=== PATIENT | female | born 1960 | race Caucasian/White ===

== ENCOUNTER 2016-04-14 16:21 | Inpatient (IN) | payer MEDICARE, MEDICAID ==
[2016-04-14 17:44] LABS: ABSOLUTE BASOPHILS # (AUTO) 0.1 10^3/uL (0.0-0.2); ABSOLUTE EOSINOPHILS # (AUTO) 0.2 10^3/uL (0.0-0.6); ABSOLUTE LYMPHOCYTES (AUTO) 2.6 10^3/uL (0.5-4.7); ABSOLUTE MONOCYTES (AUTO) 0.6 10^3/uL (0.1-1.4); ABSOLUTE NEUT (AUTO) 7.1 10^3/uL (1.7-8.2); BASOPHILS % (AUTO) 0.9 % (0-2); EOSINOPHILS % (AUTO) 1.8 % (0-6); HEMOGLOBIN 11.8 g/dL (12.0-15.5); HGB HCT DIFFERENCE -1.6; LYMPHOCYTES % (AUTO) 24.7 % (13-45); MEAN CORPUSCULAR HEMOGLOBIN 23.4 pg (27.0-33.4); MEAN CORPUSCULAR HGB CONC 31.9 g/dL (32.0-36.0); MEAN CORPUSCULAR VOLUME 73 fl (80-97); MONOCYTES % (AUTO) 5.2 % (3-13); RED BLOOD COUNT 5.04 10^6/uL (3.72-5.28); RED CELL DISTRIBUTION WIDTH 19.1 % (11.5-14.0); SEGMENTED NEUTROPHILS % (AUTO) 67.4 % (42-78); WHITE BLOOD COUNT 10.6 10^3/uL (4.0-10.5)
[2016-04-14 17:49] LABS: ALANINE AMINOTRANSFERASE 55 U/L (9-52); ALBUMIN 3.7 g/dL (3.5-5.0); ALKALINE PHOSPHATASE 111 U/L (38-126); ANION GAP 10 (5-19); ASPARTATE AMINO TRANSFERASE 19 U/L (14-36); BILIRUBIN,TOTAL 0.4 mg/dL (0.2-1.3); BLOOD UREA NITROGEN 10 mg/dL (7-20); CALCIUM 9.3 mg/dL (8.4-10.2); CARBON DIOXIDE 28 mmol/L (22-30); CHLORIDE 104 mmol/L (98-107); CREATINE KINASE 24 U/L (30-135); CREATININE RESULT 0.58 mg/dL (0.52-1.25); GLUCOSE 100 mg/dL (75-110); POTASSIUM 3.7 mmol/L (3.6-5.0); SODIUM 142.3 mmol/L (137-145); TOTAL PROTEIN 7.1 g/dL (6.3-8.2)
[2016-04-14 18:02] LABS: CREATINE KINASE MB < 0.22 ng/mL (<4.55); TROPONIN I < 0.012 ng/mL
[2016-04-14] MEDS ORDERED: METOCLOPRAMIDE HCL INJ/PF 10 MG/2 ML SDV IV ONE (18:20)
[2016-04-14] MEDS ORDERED: DIPHENHYDRAMINE HCL 50 MG/ML VIAL IV ONE (18:20)
--- NOTE | 2016-04-14 18:24 | ER Document Report ---
ED General - General Chief Complaint: Altered Mental Status Stated Complaint: DIZZY,LEFT SIDE WEAKNESS,HEADACHE Time seen by provider: 18:23 Mode of Arrival: Wheelchair Information source: Patient Notes: This is a 55-year-old female with a history of hypertension, rheumatoid arthritis, GERD who presents to the emergency room with left sided weakness for the past 2 days. Patient states she was visiting [place] and she started feeling bad about 3-4 days ago and had an episode of chest pain at that time and felt weak. She states that she started getting left sided weakness 2-3 days ago. She states that the symptoms of been constant since then. She did not want to go to a hospital in [place] and returned to [place] last night. TRAVEL OUTSIDE OF THE U.S. IN LAST 30 DAYS: No - HPI Onset: Other Onset/Duration: Gradual Quality of pain: No pain - 2-3 days ago Severity: None Pain Level: Denies Associated symptoms: Chest pain, Shortness of breath Exacerbated by: Denies Relieved by: Denies Similar symptoms previously: No Recently seen / treated by doctor: No - Related Data Allergies/Adverse Reactions: cortisone [Cortisone] Allergy (Verified 04/14/16 16:35) hydrocodone bitartrate [From Vicodin] Allergy (Verified 04/14/16 16:35) Past Medical History - General Information source: Patient - Social History Smoking Status: Former Smoker Cigarette use (# per day): No Chew tobacco use (# tins/day): No Frequency of alcohol use: None Drug Abuse: None Lives with: Family Family History: Reviewed & Not Pertinent Patient has suicidal ideation: No Patient has homicidal ideation: No - Past Medical History Cardiac Medical History: Reports: Hx Hypertension, Hx Pulmonary Embolism Denies: Hx Atrial Fibrillation, Hx Congestive Heart Failure, Hx Coronary Artery Disease, Hx Heart Attack, Hx Hypercholesterolemia, Hx Peripheral Vascular Disease, Hx Heart Murmur Pulmonary Medical History: Reports: Hx Asthma, Hx COPD Denies: Hx Tuberculosis Neurological Medical History: Denies: Hx Seizures Endocrine Medical History: Reports: Hx Diabetes Mellitus Type 2 GI Medical History: Reports: Hx Ulcer Musculoskeltal Medical History: Reports Hx Arthritis - RA, Reports Hx Fibromyalgia Psychiatric Medical History: Reports: Hx Anxiety, Hx Depression Past Surgical History: Reports: Hx Section - X4, Hx Cholecystectomy - 2011, Hx Orthopedic Surgery - bilat knee meniscus repair, neck surgery ACF, Hx Tonsillectomy - 1968. Denies: Hx Appendectomy, Hx Bowel Surgery, Hx Coronary Artery Bypass Graft, Hx Gastric Bypass Surgery, Hx Herniorrhaphy, Hx Hysterectomy, Hx Mastectomy, Hx Pacemaker, Hx Tubal Ligation - Immunizations Hx Diphtheria, Pertussis, Tetanus Vaccination: Yes Review of Systems - Review of Systems Constitutional: See HPI EENT: No symptoms reported Cardiovascular: See HPI Respiratory: See HPI Gastrointestinal: No symptoms reported Genitourinary: No symptoms reported Female Genitourinary: No symptoms reported Musculoskeletal: No symptoms reported Skin: No symptoms reported Hematologic/Lymphatic: No symptoms reported Neurological/Psychological: See HPI Physical Exam - Vital signs Vitals: Temp Pulse Resp BP Pulse Ox 98 F 105 H 22 H 152/101 H 97 04/14/16 16:35 04/14/16 16:35 04/14/16 16:35 04/14/16 16:35 04/14/16 16:35 Notes: Physical exam: GENERAL: 55-year-old female, alert and oriented 3, no acute distress HEAD: Atraumatic, normocephalic. EYES: Pupils equal round and reactive to light, extraocular movements intact, sclera anicteric, conjunctiva are normal. ENT: TMs normal, nares patent, oropharynx clear without exudates. Moist mucous membranes. NECK: Normal range of motion, supple without lymphadenopathy or JVD. LUNGS: Breath sounds clear to auscultation bilaterally and equal. No wheezes rales or rhonchi. HEART: Regular rate and rhythm without murmurs, rubs or gallops. ABDOMEN: Soft, nontender, normoactive bowel sounds. No guarding, no rebound. No masses appreciated. EXTREMITIES: Normal range of motion, no pitting or edema. No clubbing or cyanosis. NEUROLOGICAL: Patient is alert and oriented 3, she answers a month and age correctly, she is able to close her eyes and open and close her fist on verbal command, she has a normal gaze, visual dowd are intact, there is no facial palsy, motor arm exam shows drift on the left side that does not touch the bed, motor leg exam shows tripped that does not touch the bed on the left side, patient is ataxic with the left side, she does have subjective mild sensory loss to the left side, patient is noted to have mild loss of fluid and see and best languages tested: Patient description, object naming and sentence reading, her speech is clear NIH score is 5 PSYCH: Normal mood, normal affect. SKIN: Warm, Dry, normal turgor, no rashes or lesions noted. Course - Re-evaluation Re-evalutation: 04/14/16 22:25 Patient's NIH score is 5 Patient does not meet criteria for thrombolytics based upon an onset which is approximately 2-3 days ago. - Vital Signs Vital signs: Temp Pulse Resp BP Pulse Ox 98 F 87 13 144/84 H 100 04/14/16 16:35 04/14/16 21:34 04/14/16 22:01 04/14/16 22:01 04/14/16 22:01 - Laboratory Result Diagrams: 04/14/16 17:12 04/14/16 17:12 Laboratory results interpreted by me: 04/14/16 04/14/16 17:12 17:12 WBC 10.6 H Hgb 11.8 L MCV 73 L MCH 23.4 L MCHC 31.9 L RDW 19.1 H ALT 55 H Creatine Kinase 24 L - Diagnostic Test Radiology reviewed: Image reviewed, Reports reviewed - CT of the head shows no acute stroke - EKG Interpretation by Me Rate: Normal Rhythm: NSR - EKG shows a normal sinus rhythm with a ventricular rate of 84, no acute ST-T wave changes Critical Care Note - Critical Care Note Total time excluding time spent on procedures (mins): 60 Discharge - Discharge Clinical Impression: acute stroke Condition: Stable Disposition: ADMITTED INPATIENT Admitting Provider: Hospitalist - Dr Aguirre Unit Admitted: [facility]
[2016-04-14] MEDS ORDERED: DEXTROSE 5%-1/2 NORMAL SALINE 1,000 ML IV PRN (19:34)
[2016-04-14] MEDS ORDERED: LABETALOL HCL INJ 20 MG/4 ML DISP.SYRIN IV PRN (19:34)
[2016-04-14] MEDS ORDERED: ACETAMINOPHEN 650 MG SUPP.RECT PR PRN (19:39)
[2016-04-14] MEDS ORDERED: ONDANSETRON HCL INJ/PF 4 MG/2 ML SDV IV PRN (19:39)
[2016-04-14] MEDS ORDERED: LORAZEPAM INJ 2 MG/1 ML VIAL IV ONE (19:47)
--- NOTE | 2016-04-14 20:03 | PDOC H&P ---
History of Present Illness Admission Date/PCP: NICOLE GASTON-C History of Present Illness: BECKA GOMES is a 55 year old female with a history of hypertension, and oxygen dependent COPD, fibromyalgia on chronic opiates and benzodiazepines who presents to the emergency department stating that 4 days ago she woke up with chest pain and then began having dizziness and was barely able to walk. She reports that her dizziness became worse. Patient was in [place] at this time she did not seek medical attention. Patient reported that about 4 days ago she began having some left-sided weakness. Patient reports she had 3 days of slurred speech and some difficulty swallowing beginning today. Patient is referred to hospital service for possible CVA. Please note the patient's medications are currently undergoing reconciliation are not available at this time. Current medications are automatically generated by [employer]. Patient does not have her medication with her normal able to reconcile them at this time. Past Medical History Cardiac Medical History: Reports: Hypertension, Pulmonary Embolism Denies: Atrial Fibrillation, Congestive Heart Failure, Coronary Artery Disease, Myocardial Infarction, Hyperlipidema, Peripheral Vascular Disease, Heart Murmur Pulmonary Medical History: Reports: Chronic Obstructive Pulmonary Disease (COPD) Denies: Tuberculosis Pulmonary History Note: Oxygen dependent 3 L Neurological Medical History: Denies: Seizures Endocrine Medical History: Reports: Diabetes Mellitus Type 2 Musculoskeltal Medical History: Reports: Arthritis - RA, Fibromyalgia Psychiatric Medical History: Reports: Depression Past Surgical History Past Surgical History: Reports: Section - X4, Cholecystectomy - 2011, Orthopedic Surgery - bilat knee meniscus repair, neck surgery ACF, Tonsillectomy - 1968 Denies: Appendectomy, Coronary Artery Bypass Graft, Gastric Bypass Surgery, Herniorrhaphy, Hysterectomy, Mastectomy, Pacemaker, Tubal Ligation Social History Smoking Status: Former Smoker Frequency of Alcohol Use: None Hx Recreational Drug Use: No Drugs: None Hx Prescription Drug Abuse: No - Advance Directive Resuscitation Status: Full Code Surrogate healthcare decision maker:: , Chaitanya Boswell Family History Family History: CAD, CVA, Hypertension, Malignancy Parental Family History Reviewed: Yes Children Family History Reviewed: Yes Sibling(s) Family History Reviewed.: Yes Medication/Allergy Home Medications: Alprazolam [Xanax Xr 0.5 mg Tablet Extended Release] 1 mg PO BID PRN 05/05/15 Escitalopram Oxalate [Lexapro] 20 mg PO DAILY 05/05/15 Montelukast Sodium [Singulair 10 mg Tablet] 10 mg PO QHS 05/05/15 Oxycodone HCl 15 mg PO QID 05/05/15 Aspirin [Ecotrin 81 mg EC Tablet] 81 mg PO DAILY tabec 05/06/15 Albuterol Sulfate [Proair HFA] 2 puff IH QID 09/30/15 Amlodipine Besylate 5 mg PO Q12H 09/30/15 Budesonide/Formoterol Fumarate [Symbicort HFA 160-4.5 mcg Inhaler 6 gm] 2 puff IH DAILY 09/30/15 Hydrochlorothiazide 12.5 mg PO DAILY 09/30/15 Lansoprazole 1 cap PO DAILY 09/30/15 Lisinopril [Prinivil 10 mg Tablet] 20 mg PO BID 09/30/15 Trazodone HCl 100 mg PO QHS PRN 09/30/15 Levalbuterol HCl [Xopenex Neb 1.25 mg/3 ml Ampul] 1.25 mg NEB RTQ4 PRN #60 vial.neb 11/07/15 Levofloxacin [Levaquin 750 mg Tablet] 750 mg PO DAILY #6 tab 11/07/15 Allergies/Adverse Reactions: cortisone [Cortisone] Allergy (Verified 04/14/16 16:35) hydrocodone bitartrate [From Vicodin] Allergy (Verified 04/14/16 16:35) Review of Systems Constitutional: PRESENT: fatigue, weakness, other - Subjective fever or chills. ABSENT: chills, fever(s), headache(s), weight gain, weight loss Eyes: PRESENT: visual disturbances - Chronic left eye blurriness Ears: ABSENT: hearing changes Cardiovascular: PRESENT: chest pain. ABSENT: dyspnea on exertion, edema, orthropnea, palpitations Respiratory: ABSENT: cough, dyspnea, hemoptysis Gastrointestinal: ABSENT: abdominal pain, constipation, diarrhea, hematemesis, hematochezia, melena, nausea, vomiting Genitourinary: ABSENT: dysuria, hematuria Musculoskeletal: ABSENT: joint swelling Integumentary: ABSENT: rash, wounds Neurological: PRESENT: as per HPI, abnormal speech, numbness, weakness. ABSENT : abnormal gait, confusion, dizziness, focal weakness, syncope Psychiatric: ABSENT: anxiety, depression, homidical ideation, suicidal ideation Endocrine: ABSENT: cold intolerance, heat intolerance, polydipsia, polyuria Hematologic/Lymphatic: ABSENT: easy bleeding, easy bruising Physical Exam Vital Signs: Temp Pulse Resp BP Pulse Ox 98 F 91 18 145/85 H 98 04/14/16 16:35 04/14/16 18:01 04/14/16 18:09 04/14/16 18:01 04/14/16 18:09 General appearance: PRESENT: no acute distress, morbidly obese, well-developed, well-nourished Head exam: PRESENT: atraumatic, normocephalic Eye exam: PRESENT: conjunctiva pink, EOMI, PERRLA. ABSENT: scleral icterus Ear exam: PRESENT: normal external ear exam Mouth exam: PRESENT: moist, tongue midline Neck exam: ABSENT: carotid bruit, JVD, lymphadenopathy, thyromegaly, tracheal deviation Respiratory exam: PRESENT: clear to auscultation ramón, prolonged expiratory phas , unlabored. ABSENT: crackles, rales, rhonchi, tachypnea, wheezes Cardiovascular exam: PRESENT: RRR, +S1, +S2. ABSENT: diastolic murmur, gallop, rubs, systolic murmur Pulses: PRESENT: normal dorsalis pedis pul Vascular exam: PRESENT: normal capillary refill GI/Abdominal exam: PRESENT: diminished bowel sounds, soft. ABSENT: distended, guarding, mass, organolmegaly, rebound, rigid, tenderness Rectal exam: PRESENT: deferred Extremities exam: PRESENT: full ROM. ABSENT: calf tenderness, clubbing, pedal edema Neurological exam: PRESENT: alert, awake, oriented to person, oriented to place , oriented to time, oriented to situation, CN II-XII grossly intact, aphasic - Slight dysphasia. ABSENT: motor sensory deficit Psychiatric exam: PRESENT: flat affect, normal mood. ABSENT: homicidal ideation , suicidal ideation Skin exam: PRESENT: dry, intact, warm. ABSENT: cyanosis, rash Results Laboratory Results: 04/14/16 17:12 04/14/16 17:12 04/14/16 04/14/16 17:12 17:12 WBC 10.6 H RBC 5.04 Hgb 11.8 L Hct 37.0 MCV 73 L MCH 23.4 L MCHC 31.9 L RDW 19.1 H Plt Count 281 Seg Neutrophils % 67.4 Lymphocytes % 24.7 Monocytes % 5.2 Eosinophils % 1.8 Basophils % 0.9 Absolute Neutrophils 7.1 Absolute Lymphocytes 2.6 Absolute Monocytes 0.6 Absolute Eosinophils 0.2 Absolute Basophils 0.1 Sodium 142.3 Potassium 3.7 Chloride 104 Carbon Dioxide 28 Anion Gap 10 BUN 10 Creatinine 0.58 Est GFR ( Amer) > 60 Est GFR (Non-Af Amer) > 60 Glucose 100 Calcium 9.3 Total Bilirubin 0.4 AST 19 ALT 55 H Alkaline Phosphatase 111 Total Protein 7.1 Albumin 3.7 04/14/16 04/14/16 17:12 17:12 Creatine Kinase 24 L CK-MB (CK-2) < 0.22 Troponin I < 0.012 Impressions: Chest X-Ray 04/14/16 00:00 IMPRESSION: LOW LUNG VOLUMES. NO SIGNIFICANT RADIOGRAPHIC FINDING IN THE CHEST. Head CT 04/14/16 00:00 IMPRESSION: NORMAL BRAIN CT WITHOUT CONTRAST. Assessment & Plan - Diagnosis (1) Weakness Is this a current diagnosis for this admission?: YesPlan: Concern at this time for possible acute CVA although I would suspect that this would show on her CT since her symptomatology began 4 days prior. Will obtain MRI. Will give patient per rectal aspirin. Will obtain carotid Doppler. Patient nothing by mouth pending speech evaluation. NIH scale to be done now. Mend examinations every 4 hours. At this time I would like to try away from benzodiazepines or opiates which may cloud patient's presentation resulting in unnecessary testing or possible lytic administration. Urine drug screen. (2) Chronic hypoxemic respiratory failure Is this a current diagnosis for this admission?: YesPlan: Continue home oxygen at 3 L (3) chronic opiate dependence Is this a current diagnosis for this admission?: YesPlan: We will continue patient's home medications once they are verified and reconciled. Patient currently unable to take by mouth. Will hold pending speech evaluation. (4) Anxiety and depression Is this a current diagnosis for this admission?: Yes (5) Chest pain Qualifiers: Chest pain type: unspecified Qualified Code(s): R07.9 - Chest pain, unspecified Is this a current diagnosis for this admission?: YesPlan: Will trend cardiac enzymes (6) Fibromyalgia Is this a current diagnosis for this admission?: Yes (7) GERD (gastroesophageal reflux disease) Qualifiers: Esophagitis presence: esophagitis presence not specified Qualified Code(s): K21.9 - Gastro-esophageal reflux disease without esophagitis Is this a current diagnosis for this admission?: YesPlan: Place him Pepcid IV twice a day (8) Hypertension Qualifiers: Hypertension type: essential hypertension Qualified Code(s): I10 - Essential (primary) hypertension Is this a current diagnosis for this admission?: YesPlan: Labetalol for systolic greater than 180 (9) Slurred speech Is this a current diagnosis for this admission?: YesPlan: Pending speech evaluation - Time Time Spent: 50 to 70 Minutes Medications reviewed and adjusted accordingly: Yes Anticipated discharge: Home Within: within 48 hours - Inpatient Certification Based on my medical assessment, after consideration of the patient's comorbidities, presenting symptoms, or acuity I expect that the services needed warrant INPATIENT care.: Yes I certify that my determination is in accordance with my understanding of Medicare's requirements for reasonable and necessary INPATIENT services [42 CFR 412.3e].: Yes Medical Necessity: Need For IV Fluids, Need For Continuous Telemetry Monitoring , Need for Neurological Checks Post Hospital Care: D/C It Data [employer] Documentation
[2016-04-14] MEDS: LEVALBUTEROL HCL NEB 1.25 MG/3 ML AMPUL NEB PRN (20:51)
[2016-04-14] MEDS ORDERED: ASPIRIN 325 MG TABLET ONE (20:58)
[2016-04-14] MEDS ORDERED: ASPIRIN 300 MG SUPP, RECTAL PR SCH (22:00)
[2016-04-14] MEDS ORDERED: ATORVASTATIN CALCIUM 80 MG TABLET PO SCH (22:00)
[2016-04-15 00:06] LABS: CREATINE KINASE MB < 0.22 ng/mL (<4.55); TROPONIN I < 0.012 ng/mL
[2016-04-15] MEDS: LEVALBUTEROL HCL NEB 1.25 MG/3 ML AMPUL NEB PRN ×3 (00:12→08:18)
[2016-04-15] MEDS ORDERED: IBUPROFEN 600 MG TABLET PO PRN (03:48)
[2016-04-15] MEDS ORDERED: IBUPROFEN 800 MG TABLET ONE (04:04)
[2016-04-15] MEDS: FAMOTIDINE INJ/PF 20 MG/2 ML SDV IV SCH ×2 (06:56→09:53)
[2016-04-15] MEDS: HEPARIN SOD (PORCINE) 5,000 UNIT/ML 1 ML SYRINGE SUBCUT SCH ×2 (06:56→14:02)
[2016-04-15 07:06] LABS: CHOLESTEROL 144.35 mg/dL (0-200); Direct HDL 60 mg/dL (>40); TRIGLYCERIDES 102 mg/dL (<150)
[2016-04-15 07:17] LABS: DIRECT LDL 65 mg/dL (<100)
[2016-04-15 07:22] LABS: CREATINE KINASE MB < 0.22 ng/mL (<4.55); TROPONIN I < 0.012 ng/mL
[2016-04-15] MEDS ORDERED: (PENDING PHARMACY ID) (Trazodone Hcl [Trazodone Hcl] 200 MG) PO PRN (07:51)
[2016-04-15] MEDS ORDERED: ALPRAZOLAM 0.5 MG TABLET PO PRN (09:41)
[2016-04-15] MEDS ORDERED: TRAZODONE HCL 50 MG TABLET PO PRN (09:43)
[2016-04-15] MEDS: OXYCODONE HCL IR 5 MG TABLET PO PRN ×2 (09:54→13:59)
[2016-04-15] MEDS: ALBUTEROL SULFATE HFA (90 MCG/PUFF) 200 PUFF/8.5 GM MDI IH SCH ×2 (09:55→14:00)
[2016-04-15] MEDS ORDERED: (PENDING PHARMACY ID) (Escitalopram Oxalate [Lexapro] 40 MG) PO SCH (10:00)
[2016-04-15] MEDS ORDERED: BUDESONIDE/FORMOTEROL 160-4.5 MCG 60 PUFF/6 GM MDI IH SCH (10:00)
[2016-04-15] MEDS ORDERED: LISINOPRIL 10 MG TABLET PO SCH (10:00)
[2016-04-15] MEDS ORDERED: ALBUTEROL SULFATE HFA (90 MCG/PUFF) 8 GM MDI (1 MDI/ER DISP) IH SCH (10:00)
[2016-04-15] MEDS ORDERED: ESCITALOPRAM OXALATE 10 MG TABLET PO SCH (10:00)
[2016-04-15 12:09] VITALS: BP 144/87
[2016-04-15] MEDS ORDERED: LEVALBUTEROL HCL NEB 1.25 MG/3 ML AMPUL NEB PRN (12:26)
[2016-04-15 12:58] LABS: CREATINE KINASE MB < 0.22 ng/mL (<4.55); TROPONIN I < 0.012 ng/mL
[2016-04-15] MEDS ORDERED: PREGABALIN 50 MG CAPSULE PO SCH (14:00)
[2016-04-15] MEDS ORDERED: OXYCODONE HCL IR 5 MG TABLET PO ONE (14:30)
--- NOTE | 2016-04-15 15:56 | EKG REPORT ---
SEVERITY:- ABNORMAL ECG - SINUS ARRHYTHMIA, RATE 84-93 LEFT VENTRICULAR HYPERTROPHY : Confirmed by: Sarai Spence 15-Apr-2016 15:55:51
--- NOTE | 2016-04-15 22:26 | PDOC DISCHARGE SUMMARY ---
General - Admit/Disc Date/PCP Admission Date/Primary Care Provider: 04/14/16 19:34 MIGUEL GASTON Discharge Date: 04/15/16 - Discharge Diagnosis (1) Prediabetes Is this a current diagnosis for this admission?: Yes (2) Weakness Is this a current diagnosis for this admission?: Yes (3) Chronic hypoxemic respiratory failure Is this a current diagnosis for this admission?: Yes (4) chronic opiate dependence Is this a current diagnosis for this admission?: Yes (5) Anxiety and depression Is this a current diagnosis for this admission?: Yes (6) Chest pain Is this a current diagnosis for this admission?: Yes (7) Fibromyalgia Is this a current diagnosis for this admission?: Yes (8) GERD (gastroesophageal reflux disease) Is this a current diagnosis for this admission?: Yes (9) Hypertension Is this a current diagnosis for this admission?: Yes (10) Slurred speech Is this a current diagnosis for this admission?: Yes - Additional Information Resuscitation Status: Full Code Discharge Diet: Cardiac, Diabetic Discharge Activity: Activity As Tolerated, Balance Activity w/Rest Home Medications: Escitalopram Oxalate [Lexapro] 40 mg PO DAILY 05/05/15 Oxycodone HCl 15 mg PO Q4H PRN 05/05/15 Aspirin [Ecotrin 81 mg EC Tablet] 81 mg PO DAILY tabec 05/06/15 Albuterol Sulfate [Proair HFA] 2 puff IH QID 09/30/15 Budesonide/Formoterol Fumarate [Symbicort HFA 160-4.5 mcg Inhaler 6 gm] 2 puff IH DAILY 09/30/15 Lisinopril [Prinivil 10 mg Tablet] 20 mg PO DAILY 09/30/15 Trazodone HCl 200 mg PO QHS PRN 09/30/15 Levalbuterol HCl [Xopenex Neb 1.25 mg/3 ml Ampul] 1.25 mg NEB RTQ4 PRN #60 vial.neb 11/07/15 Alprazolam [Xanax] 1 mg PO BID PRN 04/15/16 Pregabalin [Lyrica 50 mg Capsule] 50 mg PO TID 04/15/16 History of Present Illness History of Present Illness: BECKA Karen GOMES is a 55 year old female with a history of hypertension, and oxygen dependent COPD, fibromyalgia on chronic opiates and benzodiazepines who presents to the emergency department stating that 4 days ago she woke up with chest pain and then began having dizziness and was barely able to walk. She reports that her dizziness became worse. Patient was in [place] at this time she did not seek medical attention. Patient reported that about 4 days ago she began having some left-sided weakness. Patient reports she had 3 days of slurred speech and some difficulty swallowing beginning today. Patient is referred to hospital service for possible CVA. Please note the patient's medications are currently undergoing reconciliation are not available at this time. Current medications are automatically generated by [employer]. Patient does not have her medication with her normal able to reconcile them at this time. Hospital Course Hospital Course: Initially, patient had inconsistent neurologic findings with inconsistent left- sided weakness including forced facial weakness. Patient underwent CT and MRI both of which were negative for acute CVA. Patient initially had some difficulty with her swallowing evaluation but after being npo patient able to swallow with speech without any difficulty. Patient was evaluated by physical and occupational therapy and no therapy was prescribed at this time. Patient did have a multitude of other complaints including chest pain. Patient was ruled out for acute coronary syndrome. Patient's cholesterol was normal. Patient however was found to be a prediabetic with hemoglobin A1c of 6.1. I discussed this with patient and advised her to stop consuming concentrated sweets and discuss this with her primary care physician for initiation of pharmacologic therapy. At this time, I have advised patient to have her primary care physician refer her to neurology as an outpatient. I feel that many of patient's medications may be contributing to her underlying symptomatology. Physical Exam Vital Signs: Temp Pulse Resp BP Pulse Ox 97.4 F 96 16 144/87 H 97 04/15/16 13:28 04/15/16 13:28 04/15/16 13:28 04/15/16 12:00 04/15/16 13:28 Intake & Output 04/14/16 04/15/16 04/16/16 06:59 06:59 06:59 Weight 108.1 kg Exam: General: Awake alert and oriented 4, no acute respiratory distress HEENT: AT/NC, PERRL, EOMI, oropharynx is moist, pink, no scleral icterus, no conjunctival injection Neck: No JVD, trachea midline Chest: Clear to auscultation bilaterally, no wheezes rhonchi or rales CV: Regular rate and rhythm, normal S1 and S2, no murmur, rub, or gallop Abdomen: Soft, nontender to palpation, nondistended, active bowel sounds; no rebound, rigidity, or guarding Extremities: No cyanosis, clubbing or edema Neuro: Cranial nerves II through XII are grossly intact without focal deficits; awake alert and oriented x4 Psych: Normal mood and affect Results Laboratory Results: 04/15/16 06:31 Triglycerides 102 Cholesterol 144.35 LDL Cholesterol Direct 65 VLDL Cholesterol 20.0 HDL Cholesterol 60 04/14/16 04/14/16 04/15/16 23:25 23:25 06:30 Creatine Kinase 21 L < 20 L CK-MB (CK-2) < 0.22 Troponin I < 0.012 04/15/16 04/15/16 04/15/16 06:31 11:58 11:58 Creatine Kinase < 20 L CK-MB (CK-2) < 0.22 < 0.22 Troponin I < 0.012 < 0.012 Impressions: Chest X-Ray 04/14/16 00:00 IMPRESSION: LOW LUNG VOLUMES. NO SIGNIFICANT RADIOGRAPHIC FINDING IN THE CHEST. Head CT 04/14/16 00:00 IMPRESSION: NORMAL BRAIN CT WITHOUT CONTRAST. Head MRI 04/14/16 00:00 IMPRESSION: NORMAL MRI OF THE BRAIN WITHOUT INTRAVENOUS GADOLINIUM CONTRAST. Carotid Doppler Study 04/14/16 19:38 IMPRESSION: NO HEMODYNAMICALLY SIGNIFICANT STENOSIS. Qualifiers PATEINT BEING DISCHARGED WITH ANY OF THE FOLLOWING DIAGNOSIS?: No Plan Time Spent: Greater than 30 Minutes
== END 2016-04-15 14:19 | disposition home or self-care (01) | DRG 641 ==
LOC: ER 16:21 → UNDOADMIN 19:19 → EH 19:19 → 3S 04-15 06:09
PROVIDERS: ADMIT Family Medicine; ATTEND Family Medicine
PROC: 3E0F73Z Introduction of Anti-inflammatory into Respiratory Tract, Via Natural or Artificial Opening (ICD-10-PCS; principal; 2016-04-14)
DX: R73.03 Prediabetes (principal); J96.11 Chronic respiratory failure with hypoxia; F11.20 Opioid dependence, uncomplicated; F32.9 Major depressive disorder, single episode, unspecified; F41.9 Anxiety disorder, unspecified; M79.7 Fibromyalgia; K21.9 Gastro-esophageal reflux disease without esophagitis; I10 Essential (primary) hypertension; R47.81 Slurred speech; J44.9 Chronic obstructive pulmonary disease, unspecified; R53.1 Weakness; Z79.899 Other long term (current) drug therapy; Z99.81 Dependence on supplemental oxygen
CPT/HCPCS: 36415; 70450; 70551; 71010; 80053; 80061; 82550; 82553; 83036; 84484; 85025; 93005; 93010; 93880; 94640; 96374; 96375; 99291; G8978-GP; G8979-GP; G8987-GO; G8988-GO; G8996-GN; G8997-GN; G8998-GN; J1200; J1644; J2060; J2765; J3490; S0028

== ENCOUNTER 2016-08-18 12:51 | Emergency (ER) | payer MEDICARE, MEDICAID ==
--- NOTE | 2016-08-18 13:30 | ER Document Report ---
ED Medical Screen (RME) - General Mode of Arrival: Ambulatory Information source: Patient TRAVEL OUTSIDE OF THE [place]. IN LAST 30 DAYS: No <BLOSSOM JOSHI - Last Filed: 08/18/16 13:29> <KAREN SOMERS - Last Filed: 08/18/16 14:28> - General Chief Complaint: Breathing Difficulty Stated Complaint: BREATHING DIFFICULTY Time Seen by Provider: 08/18/16 13:29 Notes: This is a 55-year-old female with a history of multiple medical problems including COPD, fibromyalgia with chronic pain, anxiety, hypertension, CVA 2 months ago. The patient presents to the emergency room with increased difficulty breathing, generalized weakness, dyspnea on exertion, increased falling, confusion. Patient states she awoke with these symptoms early this morning. She states she was quite fatigued last night when she went to bed. The patient states that her symptoms persisted after waking up this morning and she drove to the hospital for evaluation. (BLOSSOM JOSHI) - Related Data Allergies/Adverse Reactions: cortisone [Cortisone] Allergy (Verified 08/18/16 13:16) hydrocodone bitartrate [From Vicodin] Allergy (Verified 08/18/16 13:16) Past Medical History - Past Medical History Cardiac Medical History: Reports: Hx Hypertension, Hx Pulmonary Embolism Denies: Hx Atrial Fibrillation, Hx Congestive Heart Failure, Hx Coronary Artery Disease, Hx Heart Attack, Hx Hypercholesterolemia, Hx Peripheral Vascular Disease, Hx Heart Murmur Pulmonary Medical History: Reports: Hx Asthma, Hx COPD Denies: Hx Tuberculosis Neurological Medical History: Denies: Hx Seizures Endocrine Medical History: Reports: Hx Diabetes Mellitus Type 2 Renal/ Medical History: Denies: Hx Peritoneal Dialysis GI Medical History: Reports: Hx Ulcer Musculoskeltal Medical History: Reports Hx Arthritis - RA, Reports Hx Fibromyalgia Psychiatric Medical History: Reports: Hx Anxiety, Hx Depression Past Surgical History: Reports: Hx Section - X4, Hx Cholecystectomy - 2011, Hx Orthopedic Surgery - bilat knee meniscus repair, neck surgery ACF, Hx Tonsillectomy - 1968. Denies: Hx Appendectomy, Hx Bowel Surgery, Hx Coronary Artery Bypass Graft, Hx Gastric Bypass Surgery, Hx Herniorrhaphy, Hx Hysterectomy, Hx Mastectomy, Hx Pacemaker, Hx Tubal Ligation - Immunizations Hx Diphtheria, Pertussis, Tetanus Vaccination: Yes <BLOSSOM JOSHI - Last Filed: 08/18/16 13:29> Course - Laboratory Result Diagrams: 08/18/16 13:50 08/18/16 13:50 <KAREN SOMERS - Last Filed: 08/18/16 14:28> - Vital Signs Vital signs: Temp Pulse Resp BP Pulse Ox 98.9 F 111 H 18 146/85 H 100 08/18/16 13:03 08/18/16 13:03 08/18/16 13:03 08/18/16 13:03 08/18/16 13:30 - Laboratory Laboratory results interpreted by me: 08/18/16 13:50 Hgb 10.9 L Hct 35.1 L MCV 77 L MCH 23.9 L MCHC 31.2 L RDW 18.7 H
[2016-08-18 14:19] LABS: ABSOLUTE EOSINOPHILS # (AUTO) 0.4 10^3/uL (0.0-0.6); ABSOLUTE MONOCYTES (AUTO) 0.5 10^3/uL (0.1-1.4); ABSOLUTE NEUT (AUTO) 5.4 10^3/uL (1.7-8.2); BASOPHILS % (AUTO) 0.5 % (0-2); EOSINOPHILS % (AUTO) 4.5 % (0-6); HEMATOCRIT 35.1 % (36.0-47.0); HEMOGLOBIN 10.9 g/dL (12.0-15.5); HGB HCT DIFFERENCE -2.4; LYMPHOCYTES % (AUTO) 23.7 % (13-45); MEAN CORPUSCULAR HEMOGLOBIN 23.9 pg (27.0-33.4); MEAN CORPUSCULAR HGB CONC 31.2 g/dL (32.0-36.0); MEAN CORPUSCULAR VOLUME 77 fl (80-97); MONOCYTES % (AUTO) 6.2 % (3-13); RED BLOOD COUNT 4.57 10^6/uL (3.72-5.28); RED CELL DISTRIBUTION WIDTH 18.7 % (11.5-14.0); SEGMENTED NEUTROPHILS % (AUTO) 65.1 % (42-78); WHITE BLOOD COUNT 8.4 10^3/uL (4.0-10.5)
[2016-08-18 14:35] LABS: ALANINE AMINOTRANSFERASE 58 U/L (9-52); ALBUMIN 3.9 g/dL (3.5-5.0); ALKALINE PHOSPHATASE 110 U/L (38-126); ANION GAP 10 (5-19); ASPARTATE AMINO TRANSFERASE 37 U/L (14-36); BILIRUBIN,DIRECT 0.3 mg/dL (0.0-0.4); BILIRUBIN,TOTAL 0.4 mg/dL (0.2-1.3); BLOOD UREA NITROGEN 14 mg/dL (7-20); CALCIUM 9.4 mg/dL (8.4-10.2); CARBON DIOXIDE 30 mmol/L (22-30); CHLORIDE 102 mmol/L (98-107); CREATINE KINASE 33 U/L (30-135); CREATININE RESULT 0.69 mg/dL (0.52-1.25); GLUCOSE 104 mg/dL (75-110); POTASSIUM 4.3 mmol/L (3.6-5.0); SODIUM 142.4 mmol/L (137-145); TOTAL PROTEIN 7.1 g/dL (6.3-8.2)
--- NOTE | 2016-08-18 14:39 | ER Document Report ---
ED General - General Mode of Arrival: Ambulatory Information source: Patient TRAVEL OUTSIDE OF THE U.S. IN LAST 30 DAYS: No - HPI Patient complains to provider of: Shortness of Breath Onset: This morning Associated symptoms: Other - see notes above <KAREN SOMERS - Last Filed: 08/18/16 14:31> <FRANCES CAIN - Last Filed: 08/18/16 18:56> - General Chief Complaint: Breathing Difficulty Stated Complaint: BREATHING DIFFICULTY Time Seen by Provider: 08/18/16 13:29 Notes: 55 year old female with history of CVA (2 months ago), COPD, anxiety, hypertension, and chronic pain secondary to fibromyalgia presents to the ED complaining of shortness of breath that started this morning while at her ' psychologist's' office. According to the nursing note, the patient reported to be fatigued last night, but states that she slept fine last night. Patient is additionally complaining of confusion, generalized malaise, and [id number] back pain that is chronic. Patient receives 120 15 mg Oxycodone a month and 1 mg Alprazolam BID. Patient's primary care provider is the '[facility]' in [place]. (KAREN SOMERS) - Related Data Allergies/Adverse Reactions: cortisone [Cortisone] Allergy (Verified 08/18/16 13:16) hydrocodone bitartrate [From Vicodin] Allergy (Verified 08/18/16 13:16) Past Medical History - General Information source: Patient - Social History Smoking Status: Current Every Day Smoker Family History: Reviewed & Not Pertinent Patient has suicidal ideation: No Patient has homicidal ideation: No - Past Medical History Cardiac Medical History: Reports: Hx Hypertension, Hx Pulmonary Embolism Pulmonary Medical History: Reports: Hx Asthma, Hx COPD Neurological Medical History: Reports: Hx Cerebrovascular Accident - June 2016 Endocrine Medical History: Reports: Hx Diabetes Mellitus Type 2 GI Medical History: Reports: Hx Ulcer Musculoskeltal Medical History: Reports Hx Arthritis - RA, Reports Hx Fibromyalgia Psychiatric Medical History: Reports: Hx Anxiety, Hx Depression Past Surgical History: Reports: Hx Section - X4, Hx Cholecystectomy - 2010, Hx Orthopedic Surgery - bilat knee meniscus repair, neck surgery ACF, Hx Tonsillectomy - 1968 - Immunizations Hx Diphtheria, Pertussis, Tetanus Vaccination: Yes <KAREN SOMERS - Last Filed: 08/18/16 14:31> Review of Systems - Review of Systems Constitutional: See HPI, Malaise EENT: No symptoms reported Cardiovascular: No symptoms reported Respiratory: See HPI, Short of breath Gastrointestinal: No symptoms reported Genitourinary: No symptoms reported Female Genitourinary: No symptoms reported Musculoskeletal: See HPI, Back pain - low-to-mid Skin: No symptoms reported Hematologic/Lymphatic: No symptoms reported Neurological/Psychological: See HPI, Confusion -: Yes All other systems reviewed and negative <YONISKAREN - Last Filed: 08/18/16 14:31> Physical Exam - General General appearance: Alert In distress: None - HEENT Head: Normocephalic, Atraumatic Eyes: Normal Extraocular movements intact: Yes Pupils: PERRL - Respiratory Respiratory status: No respiratory distress - 99-100% on room air. Breath sounds: Normal - Cardiovascular Rhythm: Regular Heart sounds: Normal auscultation - Abdominal Inspection: Obese Distension: No distension Bowel sounds: Normal Tenderness: Nontender - Back Back: Normal - Extremities General upper extremity: Normal inspection, Normal ROM General lower extremity: Normal inspection, Normal ROM - Neurological Neuro grossly intact: Yes - Psychological Associated symptoms: Normal affect, Normal mood - Skin Skin Temperature: Warm Skin Moisture: Dry Skin Color: Normal <KAREN SOMERS - Last Filed: 08/18/16 14:31> Course - Laboratory Result Diagrams: 08/18/16 13:50 08/18/16 13:50 <KAREN SOMERS - Last Filed: 08/18/16 14:31> - Laboratory Result Diagrams: 08/18/16 13:50 08/18/16 13:50 - Diagnostic Test Radiology reviewed: Image reviewed, Reports reviewed - Chest x-ray and CT of the head are unremarkable - EKG Interpretation by Al EKG shows normal: Sinus rhythm, [place], Intervals, QRS Complexes, ST-T Waves Rate: Normal - 96 Rhythm: NSR Voltage: Consistant with LVH When compared to previous EKG there are: No significant change <FRANCES CAIN - Last Filed: 08/18/16 18:56> - Re-evaluation Re-evalutation: 08/18/16 16:07 The patient takes oxycodone 15 mg 4 times daily on a chronic basis. She also takes Xanax 1 mg twice daily. She complains of being short of breath, however her room air pulse ox is 99% and she is not tachypneic. She is quite low drowsy. I suspect this is all excessive medication as her x-ray CT EKG and lab work are all unremarkable. 08/18/16 18:56 When I finally got the urine on the patient, I went to speak with her about my concerns that all her symptoms are due to excessive doses of medications, specifically her oxycodone and benzodiazepines. Apparently, her medicines are worn off enough that she had awakened and eloped. (FRANCES CAIN) - Vital Signs Vital signs: Temp Pulse Resp BP Pulse Ox 98.9 F 111 H 18 146/85 H 100 08/18/16 13:03 08/18/16 13:03 08/18/16 13:03 08/18/16 13:03 08/18/16 13:30 - Laboratory Laboratory results interpreted by me: 08/18/16 08/18/16 13:50 13:50 Hgb 10.9 L Hct 35.1 L MCV 77 L MCH 23.9 L MCHC 31.2 L RDW 18.7 H AST 37 H ALT 58 H Discharge <KAREN SOMERS - Last Filed: 08/18/16 14:31> <FRANCES CAIN - Last Filed: 08/18/16 18:56> - Discharge Clinical Impression: Lethargy Overdose Qualifiers: Encounter type: initial encounter Injury intent: undetermined intent Qualified Code(s): T50.904A - Poisoning by unspecified drugs, medicaments and biological substances, undetermined, initial encounter Condition: Stable Disposition: ELOPED Scribe Attestation: 08/18/16 18:56 I personally performed the services described in the documentation, reviewed and edited the documentation which was dictated to the scribe in my presence, and it accurately records my words and actions. (FRANCES CAIN) Scribe Documentation - Scribe Written by Nitin:: Nitin Banerjee, 08/18/2016 1442 acting as scribe for :: Vianey <KAERN SOMERS - Last Filed: 08/18/16 14:31>
[2016-08-18 14:48] LABS: CREATINE KINASE MB < 0.22 ng/mL (<4.55); TROPONIN I < 0.012 ng/mL
[2016-08-18] MEDS ORDERED: NORMAL SALINE 1000 ML 1,000 ML IV ONE (16:10)
[2016-08-18 17:00] LABS: APPEARANCE,URINE SLIGHTLY-CLOUDY; BILIRUBIN,URINE NEGATIVE (NEGATIVE); GLUCOSE, URINE NEGATIVE (NEGATIVE); KETONES,URINE NEGATIVE (NEGATIVE); LEUKOCYTE ESTERASE,URINE NEGATIVE (NEGATIVE); NITRITE,URINE NEGATIVE (NEGATIVE); PROTEIN,URINE NEGATIVE (NEGATIVE); URINE SPECIFIC GRAVITY 1.017; UROBILINOGEN,URINE NEGATIVE mg/dL (<2.0)
--- NOTE | 2016-08-18 17:01 | EKG REPORT ---
SEVERITY:- BORDERLINE ECG - SINUS RHYTHM LVH BY VOLTAGE CONSIDER ANTERIOR INFARCT : Confirmed by: Sarai Spence 18-Aug-2016 17:00:43
[2016-08-18 17:14] LABS: URINE BARBITURATES SCREEN NEGATIVE; URINE METHADONE SCREEN NEGATIVE; URINE OPIATES LOW UNCONFIRMED POSITIVE; URINE PHENCYCLIDINE SCREEN NEGATIVE
[2016-08-18 19:19] VITALS: BP 129/81
== END 2016-08-18 19:18 | disposition left against medical advice (07) ==
LOC: ER 12:51
DX: R53.83 Other fatigue (principal); R06.02 Shortness of breath; T50.904A Poisoning by unspecified drugs, medicaments and biological substances, undetermined, initial encounter; J44.9 Chronic obstructive pulmonary disease, unspecified; F41.9 Anxiety disorder, unspecified; M79.7 Fibromyalgia; R41.0 Disorientation, unspecified; M54.5 Low back pain; F17.200 Nicotine dependence, unspecified, uncomplicated; I10 Essential (primary) hypertension; Z86.711 Personal history of pulmonary embolism; Z86.73 Personal history of transient ischemic attack (TIA), and cerebral infarction without residual deficits; Z90.49 Acquired absence of other specified parts of digestive tract
CPT/HCPCS: 36415; 70450; 71010; 80053; 80307; 81001; 82550; 82553; 84484; 85025; 93005; 93010; 99281

== ENCOUNTER 2016-08-30 10:14 | Emergency (ER) | payer MEDICARE, MEDICAID ==
[2016-08-30] MEDS ORDERED: IPRATROPIUM/ALBUTEROL 0.5-2.5 MG/3 ML AMPUL NEB ONE (10:29)
--- NOTE | 2016-08-30 10:33 | ER Document Report ---
ED Medical Screen (RME) - General Chief Complaint: Shortness Of Breath Stated Complaint: ARM PAIN,SHOULDER PAIN Time Seen by Provider: 08/30/16 10:24 Notes: The patient is a 55-year-old female, past medical history fibromyalgia, hypertension, COPD (on home 4L O2), presents with increasing shortness of breath over the past 2 days and right shoulder and arm pain. She has had this shoulder and arm pain last year and it resolved on its own. Pain worse when she moves her arm. Mild end-expiratory wheezing. No respiratory distress. No right shoulder deformity. Strong distal pulses. I have greeted and performed a rapid initial assessment of this patient. A comprehensive ED assessment and evaluation of the patient, analysis of test results and completion of the medical decision making process will be conducted by additional ED providers. TRAVEL OUTSIDE OF THE [place] IN LAST 30 DAYS: No - Related Data Allergies/Adverse Reactions: cortisone [Cortisone] Allergy (Verified 08/30/16 10:23) hydrocodone bitartrate [From Vicodin] Allergy (Verified 08/30/16 10:23) Past Medical History - Social History Chew tobacco use (# tins/day): No Frequency of alcohol use: None Drug Abuse: None - Past Medical History Cardiac Medical History: Reports: Hx Hypertension, Hx Pulmonary Embolism Denies: Hx Atrial Fibrillation, Hx Congestive Heart Failure, Hx Coronary Artery Disease, Hx Heart Attack, Hx Hypercholesterolemia, Hx Peripheral Vascular Disease, Hx Heart Murmur Pulmonary Medical History: Reports: Hx Asthma, Hx COPD Denies: Hx Tuberculosis Neurological Medical History: Reports: Hx Cerebrovascular Accident - June 2016. Denies: Hx Seizures Endocrine Medical History: Reports: Hx Diabetes Mellitus Type 2 Renal/ Medical History: Denies: Hx Peritoneal Dialysis GI Medical History: Reports: Hx Ulcer Musculoskeltal Medical History: Reports Hx Arthritis - RA, Reports Hx Fibromyalgia Psychiatric Medical History: Reports: Hx Anxiety, Hx Depression Past Surgical History: Reports: Hx Section - X4, Hx Cholecystectomy - 2011, Hx Orthopedic Surgery - bilat knee meniscus repair, neck surgery ACF, Hx Tonsillectomy - 1968. Denies: Hx Appendectomy, Hx Bowel Surgery, Hx Coronary Artery Bypass Graft, Hx Gastric Bypass Surgery, Hx Herniorrhaphy, Hx Hysterectomy, Hx Mastectomy, Hx Pacemaker, Hx Tubal Ligation - Immunizations Hx Diphtheria, Pertussis, Tetanus Vaccination: Yes Physical Exam - Vital signs Vitals: Temp Pulse Resp BP Pulse Ox 98.2 F 97 18 148/86 H 97 08/30/16 10:21 08/30/16 10:21 08/30/16 10:21 08/30/16 10:21 08/30/16 10:21 Course - Vital Signs Vital signs: Temp Pulse Resp BP Pulse Ox 98.2 F 97 18 148/86 H 97 08/30/16 10:21 08/30/16 10:21 08/30/16 10:21 08/30/16 10:21 08/30/16 10:21
[2016-08-30 11:06] LABS: ABSOLUTE BASOPHILS # (AUTO) 0.1 10^3/uL (0.0-0.2); ABSOLUTE EOSINOPHILS # (AUTO) 0.2 10^3/uL (0.0-0.6); ABSOLUTE LYMPHOCYTES (AUTO) 1.6 10^3/uL (0.5-4.7); ABSOLUTE MONOCYTES (AUTO) 0.5 10^3/uL (0.1-1.4); ABSOLUTE NEUT (AUTO) 7.8 10^3/uL (1.7-8.2); BASOPHILS % (AUTO) 0.6 % (0-2); EOSINOPHILS % (AUTO) 2.3 % (0-6); HEMATOCRIT 40.3 % (36.0-47.0); HEMOGLOBIN 12.8 g/dL (12.0-15.5); HGB HCT DIFFERENCE -1.9; LYMPHOCYTES % (AUTO) 15.6 % (13-45); MEAN CORPUSCULAR HEMOGLOBIN 23.7 pg (27.0-33.4); MEAN CORPUSCULAR HGB CONC 31.8 g/dL (32.0-36.0); MEAN CORPUSCULAR VOLUME 75 fl (80-97); MONOCYTES % (AUTO) 5.3 % (3-13); RED BLOOD COUNT 5.41 10^6/uL (3.72-5.28); RED CELL DISTRIBUTION WIDTH 18.8 % (11.5-14.0); SEGMENTED NEUTROPHILS % (AUTO) 76.2 % (42-78); WHITE BLOOD COUNT 10.3 10^3/uL (4.0-10.5)
[2016-08-30 11:23] LABS: ANION GAP 14 (5-19); BLOOD UREA NITROGEN 16 mg/dL (7-20); CARBON DIOXIDE 28 mmol/L (22-30); CHLORIDE 102 mmol/L (98-107); CREATINE KINASE < 20 U/L (30-135); CREATININE RESULT 0.66 mg/dL (0.52-1.25); GLUCOSE 119 mg/dL (75-110); POTASSIUM 3.9 mmol/L (3.6-5.0); SODIUM 143.7 mmol/L (137-145)
[2016-08-30] MEDS ORDERED: DIAZEPAM INJ 10 MG/2 ML DISP.SYRIN IM ONE (12:24)
[2016-08-30] MEDS ORDERED: DEXAMETHASONE SOD PHOS INJ 10 MG/1 ML VIAL IM ONE (12:24)
[2016-08-30] MEDS ORDERED: MORPHINE SULFATE 10 MG/ML INJ IM ONE (12:24)
--- NOTE | 2016-08-30 12:32 | ER Document Report ---
ED General - General Chief Complaint: Shortness Of Breath Stated Complaint: ARM PAIN,SHOULDER PAIN Time Seen by Provider: 08/30/16 10:24 Mode of Arrival: Ambulatory Information source: Patient Notes: 55-year-old female presents with 1 day duration of right shoulder pain patient notes the pain occurs with movement does not occur when at rest, notes it is a spasming pain. Patient denies any trauma mostly pain starts in her neck radiates down to her elbow. Patient denies any actual chest pain. Patient admits to chronic shortness of breath with COPD TRAVEL OUTSIDE OF THE [place] IN LAST 30 DAYS: No - HPI Onset: Yesterday Onset/Duration: Persistent Quality of pain: Achy Severity: Mild Pain Level: 2 Associated symptoms: Body/muscle aches Exacerbated by: Movement Relieved by: Denies Similar symptoms previously: Yes - Similar complaint last year Recently seen / treated by doctor: Yes - Related Data Allergies/Adverse Reactions: cortisone [Cortisone] Allergy (Verified 08/30/16 10:23) hydrocodone bitartrate [From Vicodin] Allergy (Verified 08/30/16 10:23) Past Medical History - Social History Smoking Status: Former Smoker Cigarette use (# per day): No Chew tobacco use (# tins/day): No Smoking Education Provided: No Frequency of alcohol use: None Drug Abuse: None Family History: Reviewed & Not Pertinent Patient has suicidal ideation: No Patient has homicidal ideation: No - Past Medical History Cardiac Medical History: Reports: Hx Hypertension, Hx Pulmonary Embolism Denies: Hx Atrial Fibrillation, Hx Congestive Heart Failure, Hx Coronary Artery Disease, Hx Heart Attack, Hx Hypercholesterolemia, Hx Peripheral Vascular Disease, Hx Heart Murmur Pulmonary Medical History: Reports: Hx Asthma, Hx COPD Denies: Hx Tuberculosis Neurological Medical History: Reports: Hx Cerebrovascular Accident - June 2016. Denies: Hx Seizures Endocrine Medical History: Reports: Hx Diabetes Mellitus Type 2 Renal/ Medical History: Denies: Hx Peritoneal Dialysis GI Medical History: Reports: Hx Ulcer Musculoskeltal Medical History: Reports Hx Arthritis - RA, Reports Hx Fibromyalgia Psychiatric Medical History: Reports: Hx Anxiety, Hx Depression Past Surgical History: Reports: Hx Section - X4, Hx Cholecystectomy - 2011, Hx Orthopedic Surgery - bilat knee meniscus repair, neck surgery ACF, Hx Tonsillectomy - 1968. Denies: Hx Appendectomy, Hx Bowel Surgery, Hx Coronary Artery Bypass Graft, Hx Gastric Bypass Surgery, Hx Herniorrhaphy, Hx Hysterectomy, Hx Mastectomy, Hx Pacemaker, Hx Tubal Ligation - Immunizations Hx Diphtheria, Pertussis, Tetanus Vaccination: Yes Review of Systems - Review of Systems Notes: PHYSICAL EXAMINATION: GENERAL: Well-appearing, well-nourished and in no acute distress. HEAD: Atraumatic, normocephalic. EYES: Pupils equal round and reactive to light, extraocular movements intact, conjunctiva are normal. ENT: Nares patent, oropharynx clear without exudates. Moist mucous membranes. NECK: Normal range of motion, supple without lymphadenopathy LUNGS: Breath sounds clear to auscultation bilaterally and equal. No wheezes rales or rhonchi. HEART: Regular rate and rhythm without murmurs ABDOMEN: Soft, nontender, nondistended abdomen. No guarding, no rebound. No masses appreciated. Female : deferred Musculoskeletal: Limited range of motion of the right shoulder secondary to pain tenderness on palpation of the shoulder and elbow and right lateral neck NEUROLOGICAL: Cranial nerves grossly intact. Normal speech, normal gait. Normal sensory, motor exams PSYCH: Normal mood, normal affect. SKIN: Warm, Dry, normal turgor, no rashes or lesions noted. Physical Exam - Vital signs Vitals: Temp Pulse Resp BP Pulse Ox 98.2 F 97 18 148/86 H 97 08/30/16 10:21 08/30/16 10:21 08/30/16 10:21 08/30/16 10:21 08/30/16 10:21 Course - Re-evaluation Re-evalutation: 08/30/16 12:33 Patient's pain is completely musculoskeletal easily reproducible, she will be given pain control anti-inflammatories. Patient denies any history of diabetes or allergies to steroids 08/30/16 12:34 Patient's lab work notes no significant abnormality x-ray no sign of fracture I believe patient is musculoskeletal in nature and is otherwise stable for discharge Patient instructed on risks and benefits of medications prescribed. Denies any concerns regarding such. After performing a Medical Screening Examination, I estimate there is LOW risk for RUPTURED ESOPHAGUS, PNEUMOTHORAX, PULMONARY EMBOLISM, ACUTE CORONARY SYNDROME, OR THORACIC AORTIC DISSECTION, thus I consider the discharge disposition reasonable. I have reevaluated this patient multiple times and no significant life threatening changes are noted. The patient and I have discussed the diagnosis and risks, and we agree with discharging home with close follow-up. We also discussed returning to the Emergency Department immediately if new or worsening symptoms occur. We have discussed the symptoms which are most concerning (e.g., bloody sputum, worsening pain or shortness of breath) that necessitate immediate return. 08/30/16 12:35 - Vital Signs Vital signs: Temp Pulse Resp BP Pulse Ox 98.2 F 97 18 148/86 H 97 08/30/16 10:21 08/30/16 10:21 08/30/16 10:21 08/30/16 10:21 08/30/16 10:21 - Laboratory Result Diagrams: 08/30/16 10:48 08/30/16 10:48 Laboratory results interpreted by me: 08/30/16 08/30/16 10:48 10:48 RBC 5.41 H MCV 75 L MCH 23.7 L MCHC 31.8 L RDW 18.8 H Glucose 119 H Creatine Kinase < 20 L - Diagnostic Test Radiology reviewed: Image reviewed, Reports reviewed - EKG Interpretation by Me EKG shows normal: Sinus rhythm, [place], Intervals, QRS Complexes Discharge - Discharge Clinical Impression: Muscle spasm, Prediabetes Right shoulder pain Qualifiers: Chronicity: acute Qualified Code(s): M25.511 - Pain in right shoulder Condition: Stable Disposition: HOME, SELF-CARE Instructions: Muscle Strain ([facility]), Myalagia (Muscle Pain) ([facility]) Prescriptions: Diazepam [Valium 5 mg Tablet] 5 mg PO QIDP PRN #15 tablet PRN Reason: Prednisone [Deltasone 20 mg Tablet] 3 tab PO DAILY 5 Days Referrals: LACY GRIMALDO MD [Primary Care Provider] - Follow up tomorrow
[2016-08-30 13:52] VITALS: BP 133/77
--- NOTE | 2016-08-30 17:12 | EKG REPORT ---
SEVERITY:- BORDERLINE ECG - SINUS RHYTHM LVH BY VOLTAGE CONSIDER INFERIOR INFARCT : Confirmed by: Teri Hanson MD 30-Aug-2016 17:11:36
== END 2016-08-30 13:45 | disposition home or self-care (01) ==
LOC: ER 10:14
DX: M62.838 Other muscle spasm (principal); R73.03 Prediabetes; R06.02 Shortness of breath; M25.511 Pain in right shoulder; M54.2 Cervicalgia; J44.9 Chronic obstructive pulmonary disease, unspecified; Z87.891 Personal history of nicotine dependence
CPT/HCPCS: 93005; 94640; 99284; 96372; 36415; 82550; 85025; 80048; 84484; 71010; 73030; 93010; J3360; J2270; J1100; A9270; J7620

== ENCOUNTER 2017-01-18 14:06 | Inpatient (IN) | payer MEDICARE, MEDICAID ==
--- NOTE | 2017-01-18 14:26 | RADIOLOGY REPORT (SQ) ---
EXAM DESCRIPTION: CT HEAD WITHOUT COMPLETED DATE/TIME: 01/18/2017 2:14 pm REASON FOR STUDY: stroke s/s COMPARISON: CT brain 08/18/2016, 04/14/2016, 05/04/2015, 09/26/2011 TECHNIQUE: Axial images acquired through the brain without intravenous contrast. Images reviewed wi th bone, brain and subdural windows. Images stored on PACS. All CT scanners at this facility use dose modulation, iterative reconstruction, and/or weight based d osing when appropriate to reduce radiation dose to as low as reasonably achievable (ALARA). [facility]: Dose Right [facility]: CareDose [facility]: Dose Right [facility]: Teradose 4D [facility]: Memopal RADIATION DOSE: 64 mGy. LIMITATIONS: None. FINDINGS: VENTRICLES: Normal size and contour. CEREBRUM: No masses. No hemorrhage. No midline shift. No evidence for acute infarction. Normal gra y/white matter differentiation. No areas of low density in the white matter. CEREBELLUM: No masses. No hemorrhage. No alteration of density. No evidence for acute infarction. EXTRAAXIAL SPACES: No fluid collections. No masses. ORBITS AND GLOBE: No intra- or extraconal masses. Normal contour of globe without masses. CALVARIUM: No fracture. PARANASAL SINUSES: No fluid or mucosal thickening. SOFT TISSUES: No mass or hematoma. OTHER: No other significant finding. IMPRESSION: NORMAL BRAIN CT WITHOUT CONTRAST. EVIDENCE OF ACUTE STROKE: NO. COMMENT: Pertinent findings on the imaging study reported as a CRITICAL RESULT to Dr Humphrey at14:10 o n 01/18/2017. Category of Critical Result: CT code stroke Quality ID # [id number]: Final reports with documentation of one or more dose reduction techniques (e.g., Au tomated exposure control, adjustment of the mA and/or kV according to patient size, use of iterative reconstruction technique) TECHNICAL DOCUMENTATION: JOB ID: [id number] [employer]- All Rights Reserved
[2017-01-18] MEDS ORDERED: ASPIRIN 81 MG TABLET, CHEWABLE PO ONE (14:31)
[2017-01-18] MEDS ORDERED: NORMAL SALINE 1000 ML 1,000 ML IV ONE ×2 (14:31→17:18)
[2017-01-18 14:46] LABS: ABSOLUTE BASOPHILS # (AUTO) 0.1 10^3/uL (0.0-0.2); ABSOLUTE EOSINOPHILS # (AUTO) 0.3 10^3/uL (0.0-0.6); ABSOLUTE LYMPHOCYTES (AUTO) 1.3 10^3/uL (0.5-4.7); ABSOLUTE MONOCYTES (AUTO) 0.6 10^3/uL (0.1-1.4); ABSOLUTE NEUT (AUTO) 11.9 10^3/uL (1.7-8.2); BASOPHILS % (AUTO) 0.4 % (0-2); EOSINOPHILS % (AUTO) 2.4 % (0-6); HEMATOCRIT 35.6 % (36.0-47.0); HEMOGLOBIN 11.2 g/dL (12.0-15.5); LYMPHOCYTES % (AUTO) 8.9 % (13-45); MEAN CORPUSCULAR HGB CONC 31.4 g/dL (32.0-36.0); MEAN CORPUSCULAR VOLUME 73 fl (80-97); MONOCYTES % (AUTO) 4.3 % (3-13); RED BLOOD COUNT 4.87 10^6/uL (3.72-5.28); RED CELL DISTRIBUTION WIDTH 19.3 % (11.5-14.0); WHITE BLOOD COUNT 14.1 10^3/uL (4.0-10.5)
[2017-01-18 14:48] LABS: PROTHROMBIN TIME 12.3 SEC (11.4-15.4)
--- NOTE | 2017-01-18 14:48 | RADIOLOGY REPORT (SQ) ---
EXAM DESCRIPTION: CHEST SINGLE VIEW COMPLETED DATE/TIME: 01/18/2017 2:35 pm REASON FOR STUDY: stroke s/s COMPARISON: 08/30/2016 EXAM PARAMETERS: NUMBER OF VIEWS: One view. TECHNIQUE: Single frontal radiographic view of the chest acquired. RADIATION DOSE: NA LIMITATIONS: None. FINDINGS: LUNGS AND PLEURA: No opacities, masses or pneumothorax. No pleural effusion. MEDIASTINUM AND HILAR STRUCTURES: No masses. Contour normal. HEART AND VASCULAR STRUCTURES: Heart normal in size. Normal vasculature. BONES: No acute findings. HARDWARE: None in the chest. OTHER: No other significant finding. IMPRESSION: NO ACUTE RADIOGRAPHIC FINDING IN THE CHEST. TECHNICAL DOCUMENTATION: JOB ID: [id number]
[2017-01-18 14:49] LABS: PARTIAL THROMBOPLASTIN TIME 30.9 SEC (23.5-35.8)
[2017-01-18 15:07] LABS: ALANINE AMINOTRANSFERASE 36 U/L (9-52); ALBUMIN 4.2 g/dL (3.5-5.0); ALKALINE PHOSPHATASE 133 U/L (38-126); ANION GAP 14 (5-19); ASPARTATE AMINO TRANSFERASE 25 U/L (14-36); BILIRUBIN,DIRECT 0.4 mg/dL (0.0-0.4); BILIRUBIN,TOTAL 0.5 mg/dL (0.2-1.3); BLOOD UREA NITROGEN 32 mg/dL (7-20); CALCIUM 9.2 mg/dL (8.4-10.2); CARBON DIOXIDE 29 mmol/L (22-30); CHLORIDE 101 mmol/L (98-107); CREATINE KINASE 344 U/L (30-135); CREATININE RESULT 1.03 mg/dL (0.52-1.25); GLUCOSE 117 mg/dL (75-110); POTASSIUM 4.2 mmol/L (3.6-5.0); SODIUM 143.6 mmol/L (137-145); TOTAL PROTEIN 7.7 g/dL (6.3-8.2)
[2017-01-18 17:45] LABS: APPEARANCE,URINE TURBID; BILIRUBIN,URINE NEGATIVE (NEGATIVE); GLUCOSE, URINE NEGATIVE (NEGATIVE); KETONES,URINE NEGATIVE (NEGATIVE); LEUKOCYTE ESTERASE,URINE NEGATIVE (NEGATIVE); NITRITE,URINE NEGATIVE (NEGATIVE); PROTEIN,URINE NEGATIVE (NEGATIVE); URINE SPECIFIC GRAVITY 1.017; UROBILINOGEN,URINE NEGATIVE mg/dL (<2.0)
[2017-01-18] MEDS ORDERED: NALOXONE HCL INJ 2 MG/2 ML DISP.SYRIN IV ONE (17:53)
--- NOTE | 2017-01-18 18:13 | ER Document Report ---
ED General - General Chief Complaint: General Weakness Stated Complaint: BLOOD PRESSURE PROBLEMS Time Seen by Provider: 01/18/17 14:31 Notes: Patient is a 56-year-old female, past medical history COPD, chronic back pain, prior CVA with residual left-sided weakness, fibromyalgia, presents with increasing generalized weakness for the past 3 days. According to daughter at bedside and EMS, patient had 2 falls in the shower earlier today. In addition, she had slurred speech over the past 2 days. On arrival to the ER, the patient is somnolent, but arousable to name and oriented 3. She is only complaining of a productive cough and subjective fever. She denies any drug use. Denies chest pain, shortness of breath, nausea, vomiting, numbness, tingling, blurry vision, difficulty swallowing, fevers, urinary symptoms or new onset headache. TRAVEL OUTSIDE OF THE [place] IN LAST 30 DAYS: No - Related Data Allergies/Adverse Reactions: cortisone [Cortisone] Allergy (Verified 08/30/16 10:23) hydrocodone bitartrate [From Vicodin] Allergy (Verified 08/30/16 10:23) Past Medical History - General Information source: Patient, Relative - Daughter, Emergency Med Personnel - Social History Smoking Status: Former Smoker - Quit 6 years ago Chew tobacco use (# tins/day): No Frequency of alcohol use: None Drug Abuse: None Family History: Reviewed & Not Pertinent Patient has suicidal ideation: No Patient has homicidal ideation: No - Past Medical History Cardiac Medical History: Reports: Hx Hypertension, Hx Pulmonary Embolism Denies: Hx Atrial Fibrillation, Hx Congestive Heart Failure, Hx Coronary Artery Disease, Hx Heart Attack, Hx Hypercholesterolemia, Hx Peripheral Vascular Disease, Hx Heart Murmur Pulmonary Medical History: Reports: Hx Asthma, Hx COPD Denies: Hx Tuberculosis Neurological Medical History: Reports: Hx Cerebrovascular Accident - June 2016. Denies: Hx Seizures Endocrine Medical History: Reports: Hx Diabetes Mellitus Type 2 Renal/ Medical History: Denies: Hx Peritoneal Dialysis GI Medical History: Reports: Hx Ulcer Musculoskeltal Medical History: Reports Hx Arthritis - RA, Reports Hx Fibromyalgia Psychiatric Medical History: Reports: Hx Anxiety, Hx Depression Past Surgical History: Reports: Hx Section - X4, Hx Cholecystectomy - 2011, Hx Orthopedic Surgery - bilat knee meniscus repair, neck surgery ACF, Hx Tonsillectomy - 1968. Denies: Hx Appendectomy, Hx Bowel Surgery, Hx Coronary Artery Bypass Graft, Hx Gastric Bypass Surgery, Hx Herniorrhaphy, Hx Hysterectomy, Hx Mastectomy, Hx Pacemaker, Hx Tubal Ligation - Immunizations Hx Diphtheria, Pertussis, Tetanus Vaccination: Yes Review of Systems - Review of Systems Notes: REVIEW OF SYSTEMS: CONSTITUTIONAL: +fevers, -chills EENT: -eye pain, -difficulty swallowing, -nasal congestion CARDIOVASCULAR: -chest pain, -syncope. RESPIRATORY: +cough, -SOB GASTROINTESTINAL: -abdominal pain, - nausea, -vomiting, -diarrhea GENITOURINARY: -dysuria, -hematuria MUSCULOSKELETAL: -back pain, -neck pain SKIN: -rash or skin lesions. HEMATOLOGIC: -easy bruising or bleeding. LYMPHATIC: -swollen, enlarged glands. NEUROLOGICAL: -altered mental status or loss of consciousness, -headache, + slurred speech PSYCHIATRIC: -anxiety, -depression. ALL OTHER SYSTEMS REVIEWED AND NEGATIVE. Physical Exam - Vital signs Vitals: Temp 98.8 F 01/18/17 14:11 - Notes Notes: PHYSICAL EXAMINATION: GENERAL: Somnolent but awakens to voice. HEAD: Atraumatic, normocephalic. EYES: Pupils equal round and reactive to light, extraocular movements intact, sclera anicteric, conjunctiva are normal. ENT: nares patent, oropharynx clear without exudates. Moist mucous membranes. NECK: Normal range of motion, supple without lymphadenopathy LUNGS: No respiratory distress. Crackles in right lower lung. HEART: Tachycardia, regular rhythm. ABDOMEN: Soft, nontender, normoactive bowel sounds. No guarding, no rebound. No masses appreciated. EXTREMITIES: Normal range of motion, no pitting or edema. No cyanosis. NEUROLOGICAL: Cranial nerves grossly intact. Slurred speech. 4/5 strength in LUE and LLE. 5/5 strength in RUE and RLE. PSYCH: Normal mood, normal affect. SKIN: Warm, Dry, normal turgor, no rashes or lesions noted. Course - Re-evaluation Re-evalutation: Patient arrives with 2 days of slurred speech and increased somnolence. Her VBG shows evidence of an acute hypercapnic respiratory acidosis, which may be leading to her somnolence. Her NIHSS is 3 and she is not a TPA candidate due to 2 days since onset of symptoms. She also has a leukocytosis and crackles on her left lower lobes. CXR does not show any infiltrates, but the CXR may be lagging behind the clinical picture. Will begin CAP antibiotics for a suspected pneumonia. Patient's primary care physician is at [facility]. 01/18/17 20:[address] Nolan and will admit patient as Inpatient to [facility]. - Vital Signs Vital signs: Temp Pulse Resp BP Pulse Ox 98.8 F 12 145/96 H 100 01/18/17 14:11 01/18/17 19:01 01/18/17 19:01 01/18/17 19:01 - Laboratory Result Diagrams: 01/18/17 14:26 01/18/17 14:26 Laboratory results interpreted by me: 01/18/17 01/18/17 01/18/17 14:26 14:26 14:26 WBC 14.1 H Hgb 11.2 L Hct 35.6 L MCV 73 L MCH 23.0 L MCHC 31.4 L RDW 19.3 H Seg Neutrophils % 84.0 H Lymphocytes % 8.9 L Absolute Neutrophils 11.9 H VBG pH 7.27 L VBG pCO2 73.8 H* VBG HCO3 33.0 H BUN 32 H Est GFR (Non-Af Amer) 56 L Glucose 117 H Alkaline Phosphatase 133 H Creatine Kinase 344 H - Diagnostic Test Radiology reviewed: Image reviewed, Reports reviewed Radiology results interpreted by me: CT Head: NAD CXR: NAD - EKG Interpretation by Me EKG shows normal: Sinus rhythm, [place], Intervals, QRS Complexes, ST-T Waves Rate: Tachycardia Discharge - Discharge Clinical Impression: Slurred speech, Acute hypercapnic respiratory failure Condition: Stable Disposition: ADMITTED INPATIENT Admitting Provider: Fabian Nolan Unit Admitted: [facility]
--- NOTE | 2017-01-18 18:17 | EKG REPORT ---
SEVERITY:- OTHERWISE NORMAL ECG - SINUS TACHYCARDIA : Confirmed by: Jayy Sharpe MD 18-Jan-2017 18:16:23
[2017-01-18 19:04] LABS: VENOUS BLOOD BASE EXCESS 4.1 mmol/L; VENOUS BLOOD PH 7.27 (7.30-7.42)
[2017-01-18 19:28] LABS: URINE BARBITURATES SCREEN NEGATIVE; URINE METHADONE SCREEN NEGATIVE; URINE OPIATES LOW NEGATIVE; URINE PHENCYCLIDINE SCREEN NEGATIVE
[2017-01-18 20:02] LABS: VENOUS BLOOD PCO2 73.8 mmHg (35-63)
[2017-01-18] MEDS ORDERED: AZITHROMYCIN INJ 500 MG VIAL IV ONE (20:08)
[2017-01-18] MEDS ORDERED: CEFTRIAXONE 1 GM/D5W RTU 1 GM/50 ML RTUPB IV ONE (20:08)
[2017-01-18 21:37] LABS: ADD ON TESTING BLD IN LAB ACKNOWLEDGE
[2017-01-18] MEDS ORDERED: DEXTROSE 40% GEL 15 GM TUBE PO PRN ×2 (21:50)
[2017-01-18] MEDS ORDERED: DEXTROSE 50%-WATER 25 GM/50 ML DISP.SYRIN IV PRN ×2 (21:50)
[2017-01-18] MEDS ORDERED: GLUCAGON,HUMAN RECOMB 1 MG INJ SUBCUT PRN (21:50)
[2017-01-18] MEDS ORDERED: NORMAL SALINE 1000 ML 1,000 ML IV PRN (21:53)
[2017-01-18 21:57] LABS: MAGNESIUM 2.1 mg/dL (1.6-2.3)
[2017-01-18] MEDS ORDERED: ALBUTEROL SULFATE 0.083% NEB 2.5 MG/3 ML AMPUL NEB PRN (21:57)
[2017-01-18] MEDS ORDERED: ACETAMINOPHEN 650 MG SUPP.RECT PR PRN (22:14)
[2017-01-18] MEDS ORDERED: PROMETHAZINE HCL 25 MG SUPP.RECT PR PRN (22:17)
--- NOTE | 2017-01-18 22:50 | PDOC H&P ---
History of Present Illness Admission Date/PCP: 01/18/17 21:04 [facility] Patient complains of: Generalized weakness, slurring of speech History of Present Illness: BECKA GOMES is a 56 year old female with underlying COPD, chronic back pain, fibromyalgia, and prior stroke with residual mild left-sided weakness who presents to the emergency room for evaluation of above complaints. Patient has been discussed with emergency room physician who evaluated the patient. Patient is oriented to location and year, but not sure why she is in the emergency room. Although she is maintaining her airway well, she is quite somnolent, and thus is able to provide no history whatsoever in terms of acute or chronic events, review of systems, personal habits, family history, etc. No friends or family are present. Old inpatient records are reviewed. According to emergency room physician notes, 3 day history of increasing generalized weakness along with a 2 day history of slurred speech. On arrival, she was somnolent but arousable to name and oriented 3. Complaining only of productive cough and subjective fever. Denied any drug use. Was given Narcan in the emergency room, with essentially no increase in her level of alertness. Notes headache and back pain, which is a chronic problem for her but denies chest pain nausea vomiting numbness tingling blurred vision difficulty swallowing or dysuria. Emergency room physician noted coarse breath sounds in the left base and has proceeded to treat patient as for presumptive pneumonia. He did note mild slurring of speech on his exam. No further information available this point in time. Hospitalized on our service the third through 15 April of this year with discharge diagnoses including chest pain, dizziness and difficulty walking. History and physical and discharge summary have been reviewed. Dictation via voice recognition software. Laboratory results are listed in [email or web address] and are reviewed. X-ray summary results are listed below, with full report(s) reviewed. EKG reviewed. Social history/personal habits: Reportedly lives at home. Former smoker; reportedly quit 6 years ago. No alcohol or illicit drug use per ER records. Allergies/adverse reactions are listed in [email or web address] and are reviewed. Home medications initially autopopulated into [facility] may not accurately reflect patient's true medications, dosages, and/or frequencies. composite bond technician to reconcile medications. Unfortunately, patient not able to provide any information related to medications/dosages/frequencies. REVIEW OF SYSTEMS: See history and present illness. No further information available this point in time. PHYSICAL EXAMINATION: 5 feet 2 inches tall. 90.7 kg. BMI 36.6 kg/m. Blood pressure 134/69. Pulse 104 and regular. 100% saturation on 3 L oxygen per nasal cannula; turned down to 2 L. Respirations are 12 and unlabored. Temperature 98.8. Obese somewhat chronically ill-appearing female who nevertheless appears approximately her stated age. Somnolent, although does respond with eyes opening and looking at speaker when addressed in a normal volume voice. Fairly quickly falls back to sleep, however. Emergency room nursing techn Janey is present. Skin is warm and dry. No grossly obvious evidence of rash in areas of skin examined. No subcutaneous nodules palpated. ENT: Hearing grossly normal to normal conversation. Tongue midline on protrusion pink and slightly tacky. Eyes: No scleral icterus. Pupils equal and reactive to light at 4 mm. [place] conjunctivae. No raccoon eyes. Neck is supple and nontender to gentle active range of motion and palpation. Midline trachea. No palpable thyroid nodule mass enlargement or tenderness. Lymphatic: No palpable cervical or clavicular nodes. Neck and lymphatic exams limited by patient body habitus. Psychiatric: Cannot be adequately evaluated due to her current mental status. See history and present illness. Lungs: Auscultation reveals clear and equal breath sounds bilaterally. No use of accessory respiratory muscles. Cardiovascular: Heart regular rate and rhythm, without gallop murmur or rub. No carotid or abdominal aortic bruits. No ankle or pedal edema. Faintly palpable dorsalis pedis pulses. Abdomen:soft somewhat obese nontender with positive bowel sounds. Unable to adequately evaluate abdomen for masses or organomegaly due to body habitus. Extremities: Hands and feet are warm and dry. No calf tenderness to compression. No grossly obvious visual evidence of calf swelling. Gentle manipulation of upper and lower extremities fails to reveal any obvious evidence of injury or instability to involved major joints. Neuro: Cranial Nerves II through XII are grossly intact. Light touch intact not able to be adequately evaluated due to her mental status. Motor function of major muscle groups right upper and bilateral lower extremities 5 over 5 and symmetric. Motor strength of major muscle groups of left upper extremity 4/5. Patellar reflexes absent. Absent Babinski. No nystagmus. No ankle clonus. Past Medical History Past Medical History: Information from current and old records. Patient not able to provide any information herself. Cardiac Medical History: Reports: Hypertension, Pulmonary Embolism Denies: Atrial Fibrillation, Congestive Heart Failure, Coronary Artery Disease, Myocardial Infarction, Hyperlipidema, Peripheral Vascular Disease, Heart Murmur Pulmonary Medical History: Reports: Asthma, Chronic Obstructive Pulmonary Disease (COPD) Denies: Tuberculosis Neurological Medical History: Denies: Seizures Endocrine Medical History: Reports: Diabetes Mellitus Type 2 Musculoskeltal Medical History: Reports: Arthritis - RA, Fibromyalgia Psychiatric Medical History: Reports: Depression Past Surgical History Past Surgical History: Information from current and old records. Patient not able to provide any information herself. Past Surgical History: Reports: Section - X4, Cholecystectomy - 2011, Orthopedic Surgery - bilat knee meniscus repair, neck surgery [facility], Tonsillectomy - 1968 Social History Information Source: Emergency Med Personnel, [facility] Records Smoking Status: Former Smoker - Quit 6 years ago Frequency of Alcohol Use: None Hx Recreational Drug Use: No Drugs: None Hx Prescription Drug Abuse: No - Advance Directive Resuscitation Status: Full Code Surrogate healthcare decision maker:: Uncertain at this time; likely and/or other family member Family History Family History: Reviewed & Not Pertinent Parental Family History Reviewed: No - Patient not able to provide any information. Children Family History Reviewed: No - Patient not able to provide any information. Sibling(s) Family History Reviewed.: No - Patient not able to provide any information. Medication/Allergy Home Medications: RX: Albuterol Sulfate [Proair HFA Inhalation Aerosol 8.5 gm MDI] 2 puff IH Q6 RX: Aspirin [Ecotrin 81 mg EC Tablet] 81 mg PO DAILY 01/19/17 RX: Atorvastatin Calcium [Lipitor 20 mg Tablet] 80 mg PO QHS #30 tablet RX: Azithromycin [Zithromax] 250 mg PO DAILY #4 tablet 01/19/17 RX: Bupropion HCl [Bupropion Xl] 150 mg PO QAM 01/19/17 RX: Cyclobenzaprine HCl [Flexeril 10 mg Tablet] 10 mg PO Q8HP PRN #9 tablet 01/26 RX: Gabapentin [Gralise] 600 mg PO Q8 01/19/17 RX: Lisinopril [Prinivil 10 mg Tablet] 10 mg PO DAILY 01/19/17 RX: Propranolol HCl [Inderal 10 mg Tablet] 10 mg PO Q12 01/19/17 RX: Topiramate [Topamax] 50 mg PO Q12 01/19/17 RX: Tramadol HCl 50 mg PO Q6HP PRN #12 tablet 01/19/17 Allergies/Adverse Reactions: cortisone [Cortisone] Allergy (Verified 08/30/16 10:23) hydrocodone bitartrate [From Vicodin] Allergy (Verified 08/30/16 10:23) Physical Exam Vital Signs: Temp Pulse Resp BP Pulse Ox 98.8 F 15 145/96 H 99 01/18/17 14:11 01/18/17 21:50 01/18/17 19:01 01/18/17 21:50 Results Impressions: Chest X-Ray 01/18/17 14:11 IMPRESSION: NO ACUTE RADIOGRAPHIC FINDING IN THE CHEST. Head CT 01/18/17 14:11 IMPRESSION: NORMAL BRAIN CT WITHOUT CONTRAST. EVIDENCE OF ACUTE STROKE: NO. Assessment & Plan - Diagnosis (1) Acute and chronic respiratory failure with hypercapnia Is this a current diagnosis for this admission?: Yes Plan: Patient will be admitted under COPD exacerbation protocol. Incentive spirometry twice a day. Scheduled DuoNeb's. As needed albuterol nebs. BiPAP. Serial blood gas. Wean as tolerated. Antibiotics will consist of Rocephin and intravenous Zithromax. Per my telephone discussion with at 10:53 PM, January 18, 2017, patient is a full code. He is also aware that patient may eventually need intubation and placing on a ventilator. Knee high SCDs for DVT prophylaxis, along with subcutaneous Lovenox. Time spent in evaluation and management of patient: 61 critical care minutes. (2) Acute focal neurological deficit Is this a current diagnosis for this admission?: Yes Plan: Patient will be placed in admitted under CVA/TIA protocol. Multiple imaging procedures, intracranial, vascular, and cardiac. lipid panel. Permissive hypertension. (3) COPD exacerbation Is this a current diagnosis for this admission?: Yes (4) Dysarthria Is this a current diagnosis for this admission?: Yes (5) History of CVA (cerebrovascular accident) Is this a current diagnosis for this admission?: Yes (6) Left hemiparesis Is this a current diagnosis for this admission?: Yes - Time Critical Time spent with patient: 35 or more minutes Medications reviewed and adjusted accordingly: No - Patient cannot provide information related to medications. Anticipated discharge: Other Within: within 72 hours - Inpatient Certification Based on my medical assessment, after consideration of the patient's comorbidities, presenting symptoms, or acuity I expect that the services needed warrant INPATIENT care.: Yes I certify that my determination is in accordance with my understanding of Medicare's requirements for reasonable and necessary INPATIENT services [42 CFR 412.3e].: Yes Medical Necessity: Need Close Monitoring Due to Risk of Patient Decompensation, Need For IV Fluids, Need For Continuous Telemetry Monitoring, Need for Nebulizer Therapy and Monitoring of Response, Need for Neurological Checks, Need for IV Antibiotics, Risk of Diagnosis Which Will Require Inpatient Eval/ Care/Monitoring Post Hospital Care: D/C or Transfer Summary
[2017-01-18 23:44] LABS: VENOUS BLOOD BASE EXCESS 2.1 mmol/L; VENOUS BLOOD HCO3 29.3 mmol/L (20-32); VENOUS BLOOD PCO2 57.3 mmHg (35-63); VENOUS BLOOD PH 7.33 (7.30-7.42)
[2017-01-19] MEDS ORDERED: INFLUENZA ADLT QUAD (36MOS+) 2017-18 VAC 0.5 ML SYR IM PRN (01:10)
[2017-01-19 01:56] LABS: FREE T3 3.37 pg/mL (2.77-5.27)
[2017-01-19 04:39] LABS: VENOUS BLOOD BASE EXCESS 4.4 mmol/L; VENOUS BLOOD HCO3 31.1 mmol/L (20-32); VENOUS BLOOD PCO2 57.7 mmHg (35-63); VENOUS BLOOD PH 7.35 (7.30-7.42)
[2017-01-19 04:44] LABS: ABSOLUTE EOSINOPHILS # (AUTO) 0.5 10^3/uL (0.0-0.6); ABSOLUTE LYMPHOCYTES (AUTO) 2.3 10^3/uL (0.5-4.7); ABSOLUTE MONOCYTES (AUTO) 0.4 10^3/uL (0.1-1.4); ABSOLUTE NEUT (AUTO) 7.2 10^3/uL (1.7-8.2); BASOPHILS % (AUTO) 0.4 % (0-2); EOSINOPHILS % (AUTO) 4.6 % (0-6); HEMATOCRIT 27.7 % (36.0-47.0); LYMPHOCYTES % (AUTO) 21.9 % (13-45); MEAN CORPUSCULAR HEMOGLOBIN 23.6 pg (27.0-33.4); MEAN CORPUSCULAR HGB CONC 32.3 g/dL (32.0-36.0); MEAN CORPUSCULAR VOLUME 73 fl (80-97); MONOCYTES % (AUTO) 4.3 % (3-13); RED BLOOD COUNT 3.79 10^6/uL (3.72-5.28); RED CELL DISTRIBUTION WIDTH 19.3 % (11.5-14.0); SEGMENTED NEUTROPHILS % (AUTO) 68.8 % (42-78); WHITE BLOOD COUNT 10.4 10^3/uL (4.0-10.5)
[2017-01-19 04:46] LABS: HEMOGLOBIN 8.9 g/dL (12.0-15.5)
[2017-01-19 04:53] LABS: ANION GAP 6 (5-19); BLOOD UREA NITROGEN 23 mg/dL (7-20); CALCIUM 8.5 mg/dL (8.4-10.2); CARBON DIOXIDE 30 mmol/L (22-30); CHLORIDE 107 mmol/L (98-107); CHOLESTEROL 123.81 mg/dL (0-200); CREATININE RESULT 0.64 mg/dL (0.52-1.25); Direct HDL 49 mg/dL (>40); GLUCOSE 92 mg/dL (75-110); POTASSIUM 4.2 mmol/L (3.6-5.0); SODIUM 143.4 mmol/L (137-145); TRIGLYCERIDES 53 mg/dL (<150)
[2017-01-19 05:03] LABS: DIRECT LDL 64 mg/dL (<100)
[2017-01-19] MEDS: IPRATROPIUM/ALBUTEROL 0.5-2.5 MG/3 ML AMPUL NEB SCH ×2 (08:11→14:47)
[2017-01-19] MEDS ORDERED: ENOXAPARIN SODIUM INJ 40 MG/0.4 ML DISP.SYRIN SUBCUT SCH (10:00)
[2017-01-19] MEDS ORDERED: ASPIRIN 300 MG SUPP, RECTAL PR SCH (10:00)
--- NOTE | 2017-01-19 11:17 | RADIOLOGY REPORT (SQ) ---
EXAM DESCRIPTION: CAROTID DOPPLER COMPLETED DATE/TIME: 01/19/2017 10:13 am REASON FOR STUDY: cva vs. tia COMPARISON: CT BRAIN 01/18/2017, 08/18/2016 MRI BRAIN 04/14/2016 TECHNIQUE: Grayscale ultrasound, Doppler velocity and spectra, and color Doppler images acquired of the extra-cranial carotid and vertebral arteries. Images stored on PACS. LIMITATIONS: None. FINDINGS: RIGHT CAROTID CCA Velocities: Within normal limits. ICA Velocities Peak systolic 0.63 m/s. End diastolic 0.17 m/s. Proximal ICA/CCA peak systolic ratio 1.2. Spectra normal. No significant plaque. LEFT CAROTID CCA Velocities: Within normal limits. ICA Velocities Peak systolic 0.87 m/s. End diastolic 0.34 m/s. Proximal ICA/CCA peak systolic ratio 2.4. Spectra normal. No significant plaque. VERTEBRAL ARTERIES: Antegrade flow. Normal waveforms. SUBCLAVIAN ARTERIES: Not evaluated. OTHER: No other significant finding. IMPRESSION: NO HEMODYNAMICALLY SIGNIFICANT STENOSIS. COMMENT: Quality ID #[id number]: Velocity criteria are extrapolated from the diameter data as defined by t he Society of Radiologists in Ultrasound Consensus Conference. Radiology 2003: 229; 340-346. TECHNICAL DOCUMENTATION: JOB ID: [id number] [employer]- All Rights Reserved
[2017-01-19] MEDS ORDERED: MORPHINE SULFATE 10 MG/ML INJ IV ONE (12:42)
--- NOTE | 2017-01-19 12:47 | XCELERA REPORT ---
[address] [address] Transthoracic Echocardiogram Report Name: BECKA GOMES Age: 56 yrs Gender: Female : 1960 Patient Status: Inpatient Patient Location: [address] [place] [address] Study Date: 01/19/2017 09:25 AM Height: 63 in Weight: 200 lb BSA: 1.9 m2 Procedure: A complete two-dimensional transthoracic echocardiogram was performed (2D, M-mode, spectral and color flow Doppler). The study was technically difficult with many images being suboptimal in quality. Reason For Study: cva vs. tia Ordering Physician: MAX JACKSON Performed By: Hui Pike Interpretation Summary The left ventricular ejection fraction is preserved. Consider additional methods to assess LVEF such as MUGA scan, CTA heart, cardiac MRI, KONG, etc. if clinically indicated. There is borderline concentric left ventricular hypertrophy. The left ventricle is grossly normal size. LV diastolic function could not be adequately assessed. Not all wall segments were well visualized. Right ventricular function cannot be assessed due to poor image quality. The left atrial size is normal. The right atrium is normal in size There is a trace amount of mitral regurgitation There is no mitral valve stenosis. No aortic regurgitation is present. There is no aortic valve stenosis No tricuspid regurgitation. There is no tricuspid stenosis. The inferior vena cava was not well visualized The aortic root is not well visualized but is probably normal size. There is no pericardial effusion. MMode/2D Measurements & Calculations RVDd: 2.9 cm LVIDd: 4.4 cm FS: 20.9 % Ao root diam: 3.3 cm IVSd: 1.0 cm LVIDs: 3.5 cm EDV(Teich): 87.7 ml LVPWd: 0.96 cmESV(Teich): 50.2 ml Ao root area: 8.4 cm2 EF(Teich): 42.7 % LA dimension: 3.5 cm LVOT diam: 2.0 cm LVOT area: 3.2 cm2 Doppler Measurements & Calculations MV E max inder: MV P1/2t max inder: Ao V2 max: LV V1 max P.0 cm/sec 118.0 cm/sec 174.6 cm/sec 10.6 mmHg MV A max inder: MV P1/2t: 54.7 msec Ao max PG: LV V1 max: 110.6 cm/sec MVA(P1/2t): 4.0 cm2 12.2 mmHg 162.9 cm/sec MV E/A: 1.1 MV dec slope: CÉSAR(V,D): 3.0 cm2 632.1 cm/sec2 PA V2 max: 80.9 cm/sec PA max P.6 mmHg Left Ventricle The left ventricle is grossly normal size. There is borderline concentric left ventricular hypertrophy. The left ventricular ejection fraction is preserved. Consider additional methods to assess LVEF such as MUGA scan, CTA heart, cardiac MRI, KONG, etc. if clinically indicated. LV diastolic function could not be adequately assessed. Not all wall segments were well visualized. Right Ventricle The right ventricle is grossly normal size. Right ventricular function cannot be assessed due to poor image quality. Atria The right atrium is normal in size. The left atrial size is normal. Interarterial septum not well visualized and not well dopplered. Cannot comment on ASD/PFO presence. Mitral Valve The mitral valve is not well visualized. There is no mitral valve stenosis. There is a trace amount of mitral regurgitation. Aortic Valve The aortic valve is not well visualized secondary to technical limitations. There is no aortic valve stenosis. No aortic regurgitation is present. Tricuspid Valve The tricuspid valve is not well visualized secondary to technical limitations. There is no tricuspid stenosis. No tricuspid regurgitation. Pulmonic Valve The pulmonic valve is not well visualized. Great Vessels The aortic root is not well visualized but is probably normal size. The inferior vena cava was not well visualized. Effusions There is no pericardial effusion. : MAX JACKSON > Sarai Spence
--- NOTE | 2017-01-19 14:21 | RADIOLOGY REPORT (SQ) ---
EXAM DESCRIPTION: MRI HEAD WITHOUT; MRA HEAD WITHOUT COMPLETED DATE/TIME: 01/19/2017 1:44 pm REASON FOR STUDY: dysarthria COMPARISON: Carotid Doppler 01/19/2017, 04/14/2016 CT brain 01/18/2017, 08/18/2016 MRI brain 04/14/2016, 05/04/2015 TECHNIQUE: Multiplanar imaging includes non-contrasted T1, T2, FLAIR, and diffusion with ADC map seq uences. Images stored on PACS. [place] MRA exam was performed, using 3D [id number] acquisition. Maximum intensity proj ected images and source data were reviewed. LIMITATIONS: None. FINDINGS: ANATOMY: No congenital anomalies. Normal vascular flow voids. Pituitary fossa normal. CSF SPACES: Normal in size and contour. No hemorrhage. CEREBRUM: Sulci and gyri normal in size and contour. Normal white matter signal on FLAIR imaging. No evidence of hemorrhage, mass, or extraaxial fluid collection. POSTERIOR FOSSA: No signal alteration. No hemorrhage. No edema, masses or mass effect. Internal denisa tory canals, cerebello-pontine angles, mastoids normal. DIFFUSION IMAGING: Negative for acute or sub-acute infarction. ORBITS: No masses. Globes normal. PARANASAL SINUSES: Minimal mucous membrane thickening and fluid in the left frontoethmoid junction. [place] MRA: No other significant finding. No stenosis, vascular malformation, or aneurysm. origin right posterior cerebral artery, a benign anatomic variant. IMPRESSION: ESSENTIALLY NORMAL MRI OF THE BRAIN, MRA EXAM [place] WITHOUT INTRAVENOUS GADOL INIUM CONTRAST. EVIDENCE OF ACUTE STROKE: NO. TECHNICAL DOCUMENTATION: JOB ID: [id number] [employer]- All Rights Reserved
--- NOTE | 2017-01-19 14:21 | RADIOLOGY REPORT (SQ) ---
EXAM DESCRIPTION: MRI HEAD WITHOUT; MRA HEAD WITHOUT COMPLETED DATE/TIME: 01/19/2017 1:44 pm REASON FOR STUDY: dysarthria COMPARISON: Carotid Doppler 01/19/2017, 04/14/2016 CT brain 01/18/2017, 08/18/2016 MRI brain 04/14/2016, 05/04/2015 TECHNIQUE: Multiplanar imaging includes non-contrasted T1, T2, FLAIR, and diffusion with ADC map seq uences. Images stored on PACS. [place] MRA exam was performed, using 3D [id number] acquisition. Maximum intensity proj ected images and source data were reviewed. LIMITATIONS: None. FINDINGS: ANATOMY: No congenital anomalies. Normal vascular flow voids. Pituitary fossa normal. CSF SPACES: Normal in size and contour. No hemorrhage. CEREBRUM: Sulci and gyri normal in size and contour. Normal white matter signal on FLAIR imaging. No evidence of hemorrhage, mass, or extraaxial fluid collection. POSTERIOR FOSSA: No signal alteration. No hemorrhage. No edema, masses or mass effect. Internal denisa tory canals, cerebello-pontine angles, mastoids normal. DIFFUSION IMAGING: Negative for acute or sub-acute infarction. ORBITS: No masses. Globes normal. PARANASAL SINUSES: Minimal mucous membrane thickening and fluid in the left frontoethmoid junction. [place] MRA: No other significant finding. No stenosis, vascular malformation, or aneurysm. origin right posterior cerebral artery, a benign anatomic variant. IMPRESSION: ESSENTIALLY NORMAL MRI OF THE BRAIN, MRA EXAM [place] WITHOUT INTRAVENOUS GADOL INIUM CONTRAST. EVIDENCE OF ACUTE STROKE: NO. TECHNICAL DOCUMENTATION: JOB ID: [id number] [employer]- All Rights Reserved
[2017-01-19] MEDS ORDERED: ASPIRIN 81 MG TABLET, CHEWABLE PO ONE (14:30)
[2017-01-19] MEDS ORDERED: ATORVASTATIN CALCIUM 20 MG TABLET PO ONE (14:30)
[2017-01-19] MEDS ORDERED: OXYCODONE HCL IR 5 MG TABLET PO PRN (14:43)
--- NOTE | 2017-01-19 16:44 | PDOC DISCHARGE SUMMARY ---
General - Admit/Disc Date/PCP Admission Date/Primary Care Provider: 01/18/17 21:57 Discharge Date: 01/19/17 - Discharge Diagnosis (1) Acute and chronic respiratory failure with hypercapnia Is this a current diagnosis for this admission?: Yes Summary: Resolved. Pt treated with incentive spirometry, scheduled duonebs and BiPAP PRN. Pt now maintaining sats on room air. Will d/c on azithromycin 5 day course. Steroids not provided as pt has cortisone allergy. (2) Acute focal neurological deficit Is this a current diagnosis for this admission?: Yes Summary: Resolved; likely 2/2 acute respiratory failure with hypercapnia. TIA/CVA work up completed given pt with hx of previous CVA; MRI/MRA Head w/o evidence of acute stroke. Carotid doppler normal. Echo complete. (3) COPD exacerbation Is this a current diagnosis for this admission?: Yes Summary: Improved; plan as above. (4) Dysarthria Is this a current diagnosis for this admission?: Yes (5) History of CVA (cerebrovascular accident) Is this a current diagnosis for this admission?: Yes Summary: Continue statin and ASA. Encouraged lifestyle modifications w/ regard to medication compliance and attempts at wt. loss/control oc cholesterol, prevention of DM. (6) Left hemiparesis Is this a current diagnosis for this admission?: Yes - Additional Information Resuscitation Status: Full Code Discharge Diet: Cardiac Discharge Activity: Activity As Tolerated, Balance Activity w/Rest Home Medications: Albuterol Sulfate [Proair HFA Inhalation Aerosol 8.5 gm MDI] 2 puff IH Q6 Aspirin [Ecotrin 81 mg EC Tablet] 81 mg PO DAILY 01/19/17 Atorvastatin Calcium [Lipitor 20 mg Tablet] 80 mg PO QHS #30 tablet 01/19/17 Azithromycin [Zithromax] 250 mg PO DAILY #4 tablet 01/19/17 Bupropion HCl [Bupropion Xl] 150 mg PO QAM 01/19/17 Cyclobenzaprine HCl [Flexeril 10 mg Tablet] 10 mg PO Q8HP PRN #9 tablet Gabapentin [Gralise] 600 mg PO Q8 01/19/17 Lisinopril [Prinivil 10 mg Tablet] 10 mg PO DAILY 01/19/17 Propranolol HCl [Inderal 10 mg Tablet] 10 mg PO Q12 01/19/17 Topiramate [Topamax] 50 mg PO Q12 01/19/17 Tramadol HCl 50 mg PO Q6HP PRN #12 tablet 01/19/17 History of Present Illness Patient complains of: Back, bilateral hip, and bilateral knee pain (chronic, exacerbated by fall prior to admission). History of Present Illness: BECKA GOMES is a 56 year old female who presented to the ED with generalized weakness and slurring of speech noted upon waking. Pt has mild right side weakness at baseline r/t previous CVA; however, had become so weak that she had experienced multiple witnessed falls at home while ambulating with a walker. In the ED, pt complained only of a productive cough and subjective fever. The ED physician noted course lung sounds and so began treatment for presumptive pneumonia. Pt was orientated, but quite somnolent and so was provided narcan without an increase in her level of alertness. She was placed on BiPAP and admitted for continued care. Hospital Course Hospital Course: She was placed on BiPAP and treated for COPD exacerbation and presumptive pneumonia with IV abx. She quickly improved and was weaned to room air. Pt had Head CT, head MRI/MRA, carotid doppler study, and an echocardiogram which were all reassuring. Pt expressed a desire to be discharged home. Long discussion was had with regard to TIA/CVA risks, a/c respiratory failure and polypharmacy/chronic pain management. Pt has not been using her CPAP at home r/ t anxiety; she was strongly encouraged to begin wearing CPAP nightly, even if for short periods, to become accustomed to the device. She is d/c'd home today in stable condition with recommendations for close f/u with her PCM and Care Giver. Physical Exam Vital Signs: Temp Pulse Resp BP Pulse Ox 97.8 F 106 H 16 141/74 H 97 01/19/17 15:40 01/19/17 16:11 01/19/17 16:11 01/19/17 15:40 01/19/17 16:11 Intake & Output 01/18/17 01/19/17 01/20/17 06:59 06:59 06:59 Intake Total 620 0 Output Total 0 Balance 620 0 Weight 112.5 kg General appearance: PRESENT: no acute distress, obese, well-developed, well- nourished Head exam: PRESENT: atraumatic, normocephalic Eye exam: PRESENT: conjunctiva pink, EOMI, PERRLA. ABSENT: scleral icterus Ear exam: PRESENT: normal external ear exam Mouth exam: PRESENT: moist, tongue midline Neck exam: ABSENT: carotid bruit, JVD, lymphadenopathy, thyromegaly Respiratory exam: PRESENT: clear to auscultation ramón, symmetrical, unlabored. ABSENT: rales, rhonchi, wheezes Cardiovascular exam: PRESENT: RRR. ABSENT: diastolic murmur, rubs, systolic murmur Pulses: PRESENT: normal dorsalis pedis pul Vascular exam: PRESENT: normal capillary refill GI/Abdominal exam: PRESENT: normal bowel sounds, soft. ABSENT: distended, guarding, mass, organolmegaly, rebound, tenderness Rectal exam: PRESENT: deferred Extremities exam: PRESENT: full ROM. ABSENT: calf tenderness, clubbing, pedal edema Neurological exam: PRESENT: alert, awake, oriented to person, oriented to place , oriented to time, oriented to situation, CN II-XII grossly intact, other - Motor strength to rt side 4/5; lt 5/5. ABSENT: motor sensory deficit Psychiatric exam: PRESENT: appropriate affect, normal mood. ABSENT: homicidal ideation, suicidal ideation Skin exam: PRESENT: dry, intact, warm. ABSENT: cyanosis, rash Results Laboratory Results: 01/19/17 04:22 01/19/17 04:22 01/18/17 01/18/17 01/18/17 23:30 23:30 23:30 WBC RBC Hgb Hct MCV MCH MCHC RDW Plt Count Seg Neutrophils % Lymphocytes % Monocytes % Eosinophils % Basophils % Absolute Neutrophils Absolute Lymphocytes Absolute Monocytes Absolute Eosinophils Absolute Basophils VBG pH 7.33 VBG pCO2 57.3 VBG HCO3 29.3 VBG Base Excess 2.1 Sodium Potassium Chloride Carbon Dioxide Anion Gap BUN Creatinine Est GFR ( Amer) Est GFR (Non-Af Amer) Glucose Calcium Triglycerides Cholesterol LDL Cholesterol Direct VLDL Cholesterol HDL Cholesterol TSH 0.16 L Free T4 1.35 Free T3 pg/mL 3.37 01/19/17 01/19/17 01/19/17 04:22 04:22 04:22 WBC 10.4 RBC 3.79 Hgb 8.9 L D Hct 27.7 L MCV 73 L MCH 23.6 L MCHC 32.3 RDW 19.3 H Plt Count 209 Seg Neutrophils % 68.8 Lymphocytes % 21.9 Monocytes % 4.3 Eosinophils % 4.6 Basophils % 0.4 Absolute Neutrophils 7.2 Absolute Lymphocytes 2.3 Absolute Monocytes 0.4 Absolute Eosinophils 0.5 Absolute Basophils 0.0 VBG pH 7.35 VBG pCO2 57.7 VBG HCO3 31.1 VBG Base Excess 4.4 Sodium 143.4 Potassium 4.2 Chloride 107 Carbon Dioxide 30 Anion Gap 6 BUN 23 H Creatinine 0.64 Est GFR ( Amer) > 60 Est GFR (Non-Af Amer) > 60 Glucose 92 Calcium 8.5 Triglycerides 53 Cholesterol 123.81 LDL Cholesterol Direct 64 VLDL Cholesterol 11.0 HDL Cholesterol 49 TSH Free T4 Free T3 pg/mL 01/18/17 01/19/17 23:30 04:22 Troponin I < 0.012 < 0.012 Impressions: Chest X-Ray 01/18/17 14:11 IMPRESSION: NO ACUTE RADIOGRAPHIC FINDING IN THE CHEST. Head CT 01/18/17 14:11 IMPRESSION: NORMAL BRAIN CT WITHOUT CONTRAST. EVIDENCE OF ACUTE STROKE: NO. Brain MRI with MRA 01/19/17 00:00 IMPRESSION: ESSENTIALLY NORMAL MRI OF THE BRAIN, MRA EXAM [place] WITHOUT INTRAVENOUS GADOLINIUM CONTRAST. EVIDENCE OF ACUTE STROKE: NO. Carotid Doppler Study 01/19/17 00:00 IMPRESSION: NO HEMODYNAMICALLY SIGNIFICANT STENOSIS. Head MRI 01/19/17 00:00
[2017-01-19 17:00] VITALS: BP 133/61
[2017-01-19] MEDS ORDERED: CEFTRIAXONE 1 GM/D5W RTU 1 GM/50 ML RTUPB IV SCH (18:00)
[2017-01-19] MEDS ORDERED: AZITHROMYCIN 500 MG in DEXTROSE 5%-WATER 250 ML IV SCH (18:00)
[2017-01-20] MEDS ORDERED: ASPIRIN 81 MG TABLET, CHEWABLE PO SCH (10:00)
[2017-01-20] MEDS ORDERED: ATORVASTATIN CALCIUM 20 MG TABLET PO SCH (22:00)
== END 2017-01-19 17:55 | disposition home or self-care (01) | DRG 190 ==
LOC: ER 14:06 → EH 21:04 → UNDOADMIN 21:04 → EH 21:57 → 3S 01-19 00:30
PROVIDERS: ADMIT Family Medicine; ATTEND Family Medicine
PROC: 5A09357 Assistance with Respiratory Ventilation, Less than 24 Consecutive Hours, Continuous Positive Airway Pressure (ICD-10-PCS; 2017-01-18)
PROC: 3E0F73Z Introduction of Anti-inflammatory into Respiratory Tract, Via Natural or Artificial Opening (ICD-10-PCS; principal; 2017-01-19)
DX: J44.1 Chronic obstructive pulmonary disease with (acute) exacerbation (principal); J96.22 Acute and chronic respiratory failure with hypercapnia; G81.94 Hemiplegia, unspecified affecting left nondominant side; R29.818 Other symptoms and signs involving the nervous system; M54.9 Dorsalgia, unspecified; M25.562 Pain in left knee; M25.561 Pain in right knee; M25.552 Pain in left hip; M25.551 Pain in right hip; H53.8 Other visual disturbances; I10 Essential (primary) hypertension; M06.9 Rheumatoid arthritis, unspecified; E11.9 Type 2 diabetes mellitus without complications; F32.9 Major depressive disorder, single episode, unspecified; F41.9 Anxiety disorder, unspecified; R47.81 Slurred speech; Z90.49 Acquired absence of other specified parts of digestive tract; Z86.73 Personal history of transient ischemic attack (TIA), and cerebral infarction without residual deficits; Z79.899 Other long term (current) drug therapy; Z87.891 Personal history of nicotine dependence; Z86.711 Personal history of pulmonary embolism; Z88.6 Allergy status to analgesic agent; Z88.8 Allergy status to other drugs, medicaments and biological substances; Z91.81 History of falling
CPT/HCPCS: 36415; 51701; 70450; 70544; 70551; 71010; 80048; 80053; 80061; 80307; 81001; 82550; 82803; 82962; 83605; 83735; 84439; 84443; 84481; 84484; 85025; 85610; 85730; 87040; 87086; 93005; 93010; 93306; 93880; 94640; 94660; 94799; 96361; 96365; 96375; 99285; G8978-GP; G8979-GP; G8987-GO; G8988-GO; G8989-GO; J0456; J0696; J1650; J2270; J2310; J3490; J7030; J7620

== ENCOUNTER 2017-04-17 13:17 | Inpatient (IN) | payer MEDICARE, MEDICAID ==
--- NOTE | 2017-04-17 13:39 | ER Document Report ---
ED General - General Chief Complaint: Shortness Of Breath Stated Complaint: SHORTNESS OF BREATH Time Seen by Provider: 04/17/17 13:29 Mode of Arrival: Ambulatory Information source: Patient Notes: This is a 56-year-old female with a history of COPD (is confused status post intubation 3 weeks ago), coronary artery disease, fibromyalgia, chronic back pain. Patient presents to the emergency room with productive cough, shortness of breath, chills and wheezing. TRAVEL OUTSIDE OF THE [place] IN LAST 30 DAYS: No - HPI Onset: Last week Onset/Duration: Gradual Quality of pain: No pain Severity: None Pain Level: Denies Associated symptoms: Shortness of breath, Weakness Exacerbated by: Denies Relieved by: Denies Similar symptoms previously: Yes Recently seen / treated by doctor: Yes - Related Data Allergies/Adverse Reactions: cortisone [Cortisone] Allergy (Verified 04/17/17 13:36) hydrocodone bitartrate [From Vicodin] Allergy (Verified 04/17/17 13:36) Home Medications: Current Home Medications Atorvastatin Calcium 40 mg PO QHS 04/17/17 [History] Bupropion HCl [Bupropion Xl] 150 mg PO DAILY 04/17/17 [History] Escitalopram Oxalate [Lexapro] 40 mg PO DAILY 04/17/17 [History] Gabapentin 600 mg PO TID 04/17/17 [History] Hydrochlorothiazide 12.5 mg PO DAILY 04/17/17 [History] Lorazepam [Ativan 0.5 mg Tablet] 0.5 mg PO BID PRN 04/17/17 [History] Propranolol HCl [Inderal 10 mg Tablet] 20 mg PO BID 04/17/17 [History] Tiotropium [place] [Spiriva] 18 mcg IH BID 04/17/17 [History] Topiramate 50 mg PO BID 04/17/17 [History] Trazodone HCl 100 mg PO QHS PRN 04/17/17 [History] Trazodone HCl 100 mg PO QHS PRN 04/17/17 [History] Past Medical History - General Information source: Patient - Social History Smoking Status: Former Smoker Cigarette use (# per day): Yes - None "quit 6 years ago Chew tobacco use (# tins/day): No Smoking Education Provided: No Frequency of alcohol use: None Drug Abuse: None Lives with: Family Family History: Reviewed & Not Pertinent Patient has suicidal ideation: No Patient has homicidal ideation: No - Past Medical History Cardiac Medical History: Reports: Hx Hypertension, Hx Pulmonary Embolism Denies: Hx Atrial Fibrillation, Hx Congestive Heart Failure, Hx Coronary Artery Disease, Hx Heart Attack, Hx Hypercholesterolemia, Hx Peripheral Vascular Disease, Hx Heart Murmur Pulmonary Medical History: Reports: Hx Asthma, Hx COPD Denies: Hx Tuberculosis Neurological Medical History: Reports: Hx Cerebrovascular Accident - June 2016. Denies: Hx Seizures Endocrine Medical History: Reports: Hx Diabetes Mellitus Type 2 Renal/ Medical History: Denies: Hx Peritoneal Dialysis GI Medical History: Reports: Hx Ulcer Musculoskeltal Medical History: Reports Hx Arthritis - RA, Reports Hx Fibromyalgia Psychiatric Medical History: Reports: Hx Anxiety, Hx Depression Past Surgical History: Reports: Hx Section - X4, Hx Cholecystectomy - 2010, Hx Orthopedic Surgery - bilat knee meniscus repair, neck surgery ACF, Hx Tonsillectomy - 1968. Denies: Hx Appendectomy, Hx Bowel Surgery, Hx Coronary Artery Bypass Graft, Hx Gastric Bypass Surgery, Hx Herniorrhaphy, Hx Hysterectomy, Hx Mastectomy, Hx Pacemaker, Hx Tubal Ligation - Immunizations Hx Diphtheria, Pertussis, Tetanus Vaccination: Yes Review of Systems - Review of Systems Constitutional: denies: Chills, Fever EENT: No symptoms reported Cardiovascular: No symptoms reported Respiratory: See HPI Gastrointestinal: No symptoms reported Genitourinary: No symptoms reported Female Genitourinary: No symptoms reported Musculoskeletal: No symptoms reported Skin: No symptoms reported Hematologic/Lymphatic: No symptoms reported Neurological/Psychological: No symptoms reported Physical Exam - Vital signs Vitals: Temp Resp Pulse Ox 98.0 F 14 98 04/17/17 13:28 04/17/17 13:28 04/17/17 13:28 Notes: Physical exam: GENERAL: 56-year-old female, alert and oriented 3, no acute distress. HEAD: Atraumatic, normocephalic. EYES: Pupils equal round and reactive to light, extraocular movements intact, sclera anicteric, conjunctiva are normal. ENT: TMs normal, nares patent, oropharynx clear without exudates. Moist mucous membranes. NECK: Normal range of motion, supple without obvious mass or JVD. LUNGS: Bilateral wheezing HEART: Regular rate and rhythm without murmurs, rubs or gallops. ABDOMEN: Soft, normoactive bowel sounds. No tenderness to palpation. No guarding, no rebound. No masses appreciated. EXTREMITIES: Normal range of motion, no pitting or edema. No clubbing or cyanosis. NEUROLOGICAL: Cranial nerves II through XII grossly intact. Normal speech, moving all extremities. PSYCH: Normal mood, normal affect. SKIN: Warm, Dry, normal turgor, no rashes or lesions noted. Course - Vital Signs Vital signs: Temp Pulse Resp BP Pulse Ox 98.0 F 14 156/70 H 99 04/17/17 13:28 04/17/17 18:02 04/17/17 18:02 04/17/17 18:02 - Laboratory Result Diagrams: 04/17/17 13:30 04/17/17 13:30 Laboratory results interpreted by me: 04/17/17 04/17/17 13:30 13:30 WBC 11.3 H Hgb 11.7 L Hct 35.9 L MCV 78 L MCH 25.2 L RDW 19.9 H Seg Neutrophils % 85.6 H Lymphocytes % 7.4 L Absolute Neutrophils 9.7 H Potassium 3.4 L Creatinine 0.48 L Glucose 121 H Total Bilirubin 1.5 H Alkaline Phosphatase 132 H - Diagnostic Test Radiology reviewed: Image reviewed, Reports reviewed - X-ray shows no infiltrates - EKG Interpretation by Me Rate: Normal Rhythm: NSR - EKG shows normal sinus rhythm with a ventricular rate of 98, no acute ST-T wave changes Critical Care Note - Critical Care Note Total time excluding time spent on procedures (mins): 60 Discharge - Discharge Clinical Impression: COPD exacerbation Condition: Stable Disposition: ADMITTED INPATIENT Admitting Provider: Hospitalist - Dr. ortega Unit Admitted: Telemetry
[2017-04-17] MEDS ORDERED: IPRATROPIUM/ALBUTEROL 0.5-2.5 MG/3 ML AMPUL NEB ONE ×3 (13:47→17:55)
[2017-04-17 13:53] LABS: ABSOLUTE EOSINOPHILS # (AUTO) 0.2 10^3/uL (0.0-0.6); ABSOLUTE LYMPHOCYTES (AUTO) 0.8 10^3/uL (0.5-4.7); ABSOLUTE MONOCYTES (AUTO) 0.5 10^3/uL (0.1-1.4); ABSOLUTE NEUT (AUTO) 9.7 10^3/uL (1.7-8.2); BASOPHILS % (AUTO) 0.3 % (0-2); EOSINOPHILS % (AUTO) 2.1 % (0-6); HEMATOCRIT 35.9 % (36.0-47.0); HEMOGLOBIN 11.7 g/dL (12.0-15.5); LYMPHOCYTES % (AUTO) 7.4 % (13-45); MEAN CORPUSCULAR HEMOGLOBIN 25.2 pg (27.0-33.4); MEAN CORPUSCULAR HGB CONC 32.6 g/dL (32.0-36.0); MEAN CORPUSCULAR VOLUME 78 fl (80-97); MONOCYTES % (AUTO) 4.6 % (3-13); PLATELET COUNT 248 10^3/uL (150-450); RED BLOOD COUNT 4.63 10^6/uL (3.72-5.28); RED CELL DISTRIBUTION WIDTH 19.9 % (11.5-14.0); SEGMENTED NEUTROPHILS % (AUTO) 85.6 % (42-78); TOTAL CELLS COUNTED % (AUTO) 100 %; WHITE BLOOD COUNT 11.3 10^3/uL (4.0-10.5)
[2017-04-17 14:11] LABS: ALANINE AMINOTRANSFERASE 33 U/L (9-52); ALBUMIN 3.8 g/dL (3.5-5.0); ALKALINE PHOSPHATASE 132 U/L (38-126); ANION GAP 11 (5-19); ASPARTATE AMINO TRANSFERASE 17 U/L (14-36); BILIRUBIN,DIRECT 0.4 mg/dL (0.0-0.4); BILIRUBIN,TOTAL 1.5 mg/dL (0.2-1.3); BLOOD UREA NITROGEN 8 mg/dL (7-20); CALCIUM 9.1 mg/dL (8.4-10.2); CARBON DIOXIDE 27 mmol/L (22-30); CHLORIDE 100 mmol/L (98-107); CREATINE KINASE 63 U/L (30-135); GLUCOSE 121 mg/dL (75-110); POTASSIUM 3.4 mmol/L (3.6-5.0); SODIUM 138.4 mmol/L (137-145); TOTAL PROTEIN 6.9 g/dL (6.3-8.2)
[2017-04-17 14:24] LABS: CREATINE KINASE MB < 0.22 ng/mL (<4.55); TROPONIN I < 0.012 ng/mL
[2017-04-17 15:37] LABS: A TYPE INFLUENZA AG NEGATIVE (NEGATIVE); B INFLUENZA AG NEGATIVE (NEGATIVE)
--- NOTE | 2017-04-17 15:44 | RADIOLOGY REPORT (SQ) ---
EXAM DESCRIPTION: CHEST SINGLE VIEW COMPLETED DATE/TIME: 04/17/2017 3:24 pm REASON FOR STUDY: sob COMPARISON: 03/11/2017 EXAM PARAMETERS: NUMBER OF VIEWS: One view. TECHNIQUE: Single frontal radiographic view of the chest acquired. RADIATION DOSE: NA LIMITATIONS: None. FINDINGS: LUNGS AND PLEURA: No new opacities, masses or pneumothorax. No pleural effusion. MEDIASTINUM AND HILAR STRUCTURES: No masses. Contour normal. HEART AND VASCULAR STRUCTURES: Heart stable in size. Normal vasculature. BONES: No acute findings. HARDWARE: None in the chest. OTHER: No other significant finding. IMPRESSION: NO ACUTE RADIOGRAPHIC FINDING IN THE CHEST. NO SIGNIFICANT CHANGE FROM PRIOR STUDY. TECHNICAL DOCUMENTATION: JOB ID: [id number] [employer]- All Rights Reserved
[2017-04-17] MEDS ORDERED: CEFTRIAXONE 1 GM/D5W RTU 1 GM/50 ML RTUPB IV ONE (17:55)
[2017-04-17] MEDS ORDERED: ACETAMINOPHEN 325 MG TABLET PO PRN (18:06)
[2017-04-17] MEDS ORDERED: NORMAL SALINE 1000 ML 1,000 ML IV PRN (18:06)
[2017-04-17] MEDS ORDERED: ONDANSETRON HCL INJ/PF 4 MG/2 ML SDV IV PRN (18:06)
[2017-04-17] MEDS ORDERED: VANCOMYCIN HCL 0 MG in DEXTROSE 5%-WATER 250 ML IV NR (18:15)
[2017-04-17] MEDS: MAGNESIUM SULFATE/D5W 1 GM/100 ML RTUPB IV SCH ×2 (18:40→23:19)
--- NOTE | 2017-04-17 18:54 | PDOC H&P ---
History of Present Illness Patient complains of: shortness of breath History of Present Illness: BECKA GOMES is a 56 year old female with a history of COPD, chronic hypoxic respiratory failure on home oxygen, fibromyalgia, chronic back pain, CVA with minimal residual left-sided weakness presented with wheezing and shortness of breath since 13 April. Patient states she was in [place] and doing well however after returning she became ill. Patient does not give a history of smoking however the room smells of smoke. Patient explains that she does not have heat in her apartment but has electrical heaters however due to the severe cold it is unable to keep place warm. Patient has a wet cough however she is able to expectorate any of the phlegm. Patient states because of the coughing her abdominal muscles are sore. Patient states that she is in the hospital every 2-3 weeks despite taking her nebs and using CPAP machine and wants something done about this. Patient was admitted to the hospital back in February and intubated at that time. The ED he was found to have mild leukocytosis, mild hypokalemia and a clear chest x-ray. Blood cultures are drawn and patient was given a dose of ceftriaxone. Hospitalist was called to admit patient for COPD exacerbation due to acute bronchitis. Past Medical History Cardiac Medical History: Reports: Hypertension, Pulmonary Embolism Denies: Atrial Fibrillation, Congestive Heart Failure, Coronary Artery Disease, Myocardial Infarction, Hyperlipidema, Peripheral Vascular Disease, Heart Murmur Pulmonary Medical History: Reports: Asthma, Chronic Obstructive Pulmonary Disease (COPD) Denies: Tuberculosis Neurological Medical History: Denies: Seizures Endocrine Medical History: Reports: Diabetes Mellitus Type 2 Musculoskeltal Medical History: Reports: Arthritis - RA, Fibromyalgia Psychiatric Medical History: Reports: Depression Past Surgical History Past Surgical History: Reports: Section - X4, Cholecystectomy - 2011, Orthopedic Surgery - bilat knee meniscus repair, neck surgery ACF, Tonsillectomy - 1968 Denies: Appendectomy, Coronary Artery Bypass Graft, Gastric Bypass Surgery, Herniorrhaphy, Hysterectomy, Mastectomy, Pacemaker, Tubal Ligation Social History Smoking Status: Unknown if Ever Smoked Frequency of Alcohol Use: None Hx Recreational Drug Use: No Drugs: None Hx Prescription Drug Abuse: No - Advance Directive Resuscitation Status: Full Code Family History Family History: DM, Hypertension, Malignancy Parental Family History Reviewed: No Children Family History Reviewed: No Sibling(s) Family History Reviewed.: No Medication/Allergy Home Medications: Atorvastatin Calcium 40 mg PO QHS 04/17/17 Bupropion HCl [Bupropion Xl] 150 mg PO DAILY 04/17/17 Escitalopram Oxalate [Lexapro] 40 mg PO DAILY 04/17/17 Gabapentin 600 mg PO TID 04/17/17 Hydrochlorothiazide 12.5 mg PO DAILY 04/17/17 Lorazepam [Ativan 0.5 mg Tablet] 0.5 mg PO BID PRN 04/17/17 Propranolol HCl [Inderal 10 mg Tablet] 20 mg PO BID 04/17/17 Tiotropium [place] [Spiriva] 18 mcg IH BID 04/17/17 Topiramate 50 mg PO BID 04/17/17 Trazodone HCl 100 mg PO QHS PRN 04/17/17 Trazodone HCl 100 mg PO QHS PRN 04/17/17 Allergies/Adverse Reactions: cortisone [Cortisone] Allergy (Verified 04/17/17 13:36) hydrocodone bitartrate [From Vicodin] Allergy (Verified 04/17/17 13:36) Review of Systems Constitutional: ABSENT: chills, fever(s), headache(s), weight gain, weight loss Eyes: ABSENT: visual disturbances Ears: ABSENT: hearing changes Cardiovascular: ABSENT: chest pain, dyspnea on exertion, edema, orthropnea, palpitations Respiratory: PRESENT: cough, dyspnea. ABSENT: hemoptysis Gastrointestinal: ABSENT: abdominal pain, constipation, diarrhea, hematemesis, hematochezia, nausea, vomiting Genitourinary: ABSENT: dysuria, hematuria Musculoskeletal: PRESENT: back pain. ABSENT: joint swelling Integumentary: ABSENT: rash, wounds Neurological: ABSENT: abnormal gait, abnormal speech, confusion, dizziness, focal weakness, syncope Psychiatric: PRESENT: anxiety. ABSENT: depression, homidical ideation, suicidal ideation Endocrine: ABSENT: cold intolerance, heat intolerance, polydipsia, polyuria Hematologic/Lymphatic: ABSENT: easy bleeding, easy bruising Physical Exam Vital Signs: Temp Pulse Resp BP Pulse Ox 98.0 F 14 156/70 H 99 04/17/17 13:28 04/17/17 18:02 04/17/17 18:02 04/17/17 18:02 General appearance: PRESENT: no acute distress, obese, well-developed, well- nourished Head exam: PRESENT: atraumatic, normocephalic Eye exam: PRESENT: conjunctiva pink, EOMI, PERRLA. ABSENT: scleral icterus Ear exam: PRESENT: normal external ear exam Mouth exam: PRESENT: moist, tongue midline Neck exam: ABSENT: carotid bruit, JVD, lymphadenopathy, thyromegaly Respiratory exam: PRESENT: wheezes. ABSENT: rales, rhonchi Cardiovascular exam: PRESENT: RRR. ABSENT: diastolic murmur, rubs, systolic murmur Pulses: PRESENT: normal dorsalis pedis pul Vascular exam: PRESENT: normal capillary refill GI/Abdominal exam: PRESENT: normal bowel sounds, soft. ABSENT: distended, guarding, mass, organolmegaly, rebound, tenderness Rectal exam: PRESENT: deferred Extremities exam: PRESENT: full ROM. ABSENT: calf tenderness, clubbing, pedal edema Neurological exam: PRESENT: alert, awake, oriented to person, oriented to place , oriented to time, oriented to situation, CN II-XII grossly intact. ABSENT: motor sensory deficit Psychiatric exam: PRESENT: appropriate affect, normal mood. ABSENT: homicidal ideation, suicidal ideation Skin exam: PRESENT: dry, intact, warm. ABSENT: cyanosis, rash Results Laboratory Results: 04/17/17 13:30 04/17/17 13:30 04/17/17 04/17/17 13:30 13:30 WBC 11.3 H RBC 4.63 Hgb 11.7 L Hct 35.9 L MCV 78 L MCH 25.2 L MCHC 32.6 RDW 19.9 H Plt Count 248 Seg Neutrophils % 85.6 H Lymphocytes % 7.4 L Monocytes % 4.6 Eosinophils % 2.1 Basophils % 0.3 Absolute Neutrophils 9.7 H Absolute Lymphocytes 0.8 Absolute Monocytes 0.5 Absolute Eosinophils 0.2 Absolute Basophils 0.0 Sodium 138.4 Potassium 3.4 L Chloride 100 Carbon Dioxide 27 Anion Gap 11 BUN 8 Creatinine 0.48 L Est GFR ( Amer) > 60 Est GFR (Non-Af Amer) > 60 Glucose 121 H Calcium 9.1 Total Bilirubin 1.5 H AST 17 ALT 33 Alkaline Phosphatase 132 H Total Protein 6.9 Albumin 3.8 04/17/17 04/17/17 13:30 13:30 Creatine Kinase 63 CK-MB (CK-2) < 0.22 Troponin I < 0.012 Impressions: Chest X-Ray 04/17/17 15:04 IMPRESSION: NO ACUTE RADIOGRAPHIC FINDING IN THE CHEST. NO SIGNIFICANT CHANGE FROM PRIOR STUDY. Assessment & Plan - Diagnosis (1) Acute bronchitis Is this a current diagnosis for this admission?: Yes Plan: Patient with cough and clear chest x-ray. Influenza in a and B-. Patient on ceftriaxone and azithromycin. Patient started on nebulizers along with systemic steroids and inhaled steroids. Will also add Mucomyst. (2) Hypokalemia Is this a current diagnosis for this admission?: Yes Plan: Potassium is 3.4 will give patient 40mEq p.o. Most likely due to the use of hydrochlorothiazide. Repeat labs in a.m. (3) Anxiety and depression Plan: Continue home meds. (4) COPD exacerbation Is this a current diagnosis for this admission?: Yes Plan: Likely due to acute bronchitis. Patient currently on azithromycin and ceftriaxone. Influenza A/B negative. Patient on duo nebs, budesonide, Solu- Medrol, Singulair, and Mucinex. Spite the fact that patient no longer smokes she is clearly surrounded by secondhand smoke. (5) MIAH (obstructive sleep apnea) Plan: Bipap was discharged on BiPAP on her last admission. Have patient use BiPAP at night. (6) Fibromyalgia Is this a current diagnosis for this admission?: Yes Plan: Continue current medications. (7) History of CVA (cerebrovascular accident) Is this a current diagnosis for this admission?: Yes Plan: With minimal left-sided residual deficit. (8) Hypertension Qualifiers: Hypertension type: essential hypertension Qualified Code(s): I10 - Essential (primary) hypertension Plan: Continue home medications. - Time Time Spent: 30 to 50 Minutes Anticipated discharge: Home, Home with Homehealth Within: within 72 hours - Inpatient Certification Medical Necessity: Significant Comorbidiites Make Outpatient Treatment Too Risky , Need Close Monitoring Due to Risk of Patient Decompensation, Need For IV Fluids, Need For Continuous Telemetry Monitoring, Need for Nebulizer Therapy and Monitoring of Response, Need for IV Antibiotics
[2017-04-17] MEDS: BUDESONIDE NEB 0.5 MG/2 ML AMPUL NEB SCH (19:49)
[2017-04-17] MEDS: IPRATROPIUM/ALBUTEROL 0.5-2.5 MG/3 ML AMPUL NEB SCH (19:49)
[2017-04-17] MEDS ORDERED: POTASSIUM CHLORIDE 10 MEQ TABLET.SA PO ONE (20:00)
[2017-04-17] MEDS ORDERED: MONTELUKAST SODIUM 10 MG TABLET PO ONE (20:00)
[2017-04-17] MEDS ORDERED: LEVOFLOXACIN 500 MG TABLET PO ONE (20:00)
--- NOTE | 2017-04-17 20:10 | EKG REPORT ---
SEVERITY:- NORMAL ECG - SINUS RHYTHM : Confirmed by: Sarai Spence 17-Apr-2017 20:09:33
[2017-04-17] MEDS: OXYCODONE-ACETAMINOPHEN 5-325 MG TABLET PO PRN (20:32)
[2017-04-17] MEDS ORDERED: CEFEPIME 1 GM/D5W RTU 1 GM/50 ML RTUPB IV SCH (22:00)
[2017-04-17] MEDS ORDERED: MAGNESIUM SULFATE/D5W 1 GM/100 ML RTUPB IV ONE (23:05)
[2017-04-17] MEDS: ATORVASTATIN CALCIUM 40 MG TABLET PO SCH (23:17)
[2017-04-18] MEDS: IPRATROPIUM/ALBUTEROL 0.5-2.5 MG/3 ML AMPUL NEB SCH ×7 (00:36→23:43)
[2017-04-18] MEDS: LORAZEPAM 0.5 MG TABLET PO PRN (02:56)
[2017-04-18] MEDS: OXYCODONE-ACETAMINOPHEN 5-325 MG TABLET PO PRN ×3 (02:57→17:20)
[2017-04-18] MEDS: LANSOPRAZOLE 30 MG TAB.RAP.DR PO SCH (05:48)
[2017-04-18 08:40] LABS: ABSOLUTE EOSINOPHILS # (AUTO) 0.3 10^3/uL (0.0-0.6); ABSOLUTE LYMPHOCYTES (AUTO) 1.4 10^3/uL (0.5-4.7); ABSOLUTE MONOCYTES (AUTO) 0.6 10^3/uL (0.1-1.4); ABSOLUTE NEUT (AUTO) 7.2 10^3/uL (1.7-8.2); BASOPHILS % (AUTO) 0.4 % (0-2); EOSINOPHILS % (AUTO) 2.7 % (0-6); HEMATOCRIT 31.4 % (36.0-47.0); HEMOGLOBIN 10.3 g/dL (12.0-15.5); LYMPHOCYTES % (AUTO) 14.3 % (13-45); MEAN CORPUSCULAR HEMOGLOBIN 25.4 pg (27.0-33.4); MEAN CORPUSCULAR HGB CONC 32.7 g/dL (32.0-36.0); MEAN CORPUSCULAR VOLUME 78 fl (80-97); MONOCYTES % (AUTO) 6.7 % (3-13); PLATELET COUNT 263 10^3/uL (150-450); RED BLOOD COUNT 4.05 10^6/uL (3.72-5.28); RED CELL DISTRIBUTION WIDTH 20.1 % (11.5-14.0); SEGMENTED NEUTROPHILS % (AUTO) 75.9 % (42-78); TOTAL CELLS COUNTED % (AUTO) 100 %; WHITE BLOOD COUNT 9.5 10^3/uL (4.0-10.5)
[2017-04-18] MEDS: BUDESONIDE NEB 0.5 MG/2 ML AMPUL NEB SCH ×2 (08:42→19:51)
[2017-04-18 08:58] LABS: ANION GAP 10 (5-19); BLOOD UREA NITROGEN 8 mg/dL (7-20); CALCIUM 8.6 mg/dL (8.4-10.2); CARBON DIOXIDE 31 mmol/L (22-30); CHLORIDE 100 mmol/L (98-107); GLUCOSE 116 mg/dL (75-110); MAGNESIUM 2.5 mg/dL (1.6-2.3); POTASSIUM 3.3 mmol/L (3.6-5.0); SODIUM 140.8 mmol/L (137-145)
[2017-04-18] MEDS: ENOXAPARIN SODIUM INJ 40 MG/0.4 ML DISP.SYRIN SUBCUT SCH (09:56)
[2017-04-18] MEDS: PROPRANOLOL HCL 20 MG TABLET PO SCH ×2 (09:57→22:29)
[2017-04-18] MEDS: LISINOPRIL 10 MG TABLET PO SCH (09:57)
[2017-04-18] MEDS: GABAPENTIN 300 MG CAPSULE PO SCH ×3 (09:58→17:20)
[2017-04-18] MEDS: GUAIFENESIN 600 MG TABLET.SA PO SCH ×2 (09:58→17:19)
[2017-04-18] MEDS: AZITHROMYCIN 250 MG TABLET PO SCH (09:58)
[2017-04-18] MEDS: ESCITALOPRAM OXALATE 10 MG TABLET PO SCH (09:59)
[2017-04-18] MEDS: METHYLPREDNISOLONE INJ 125 MG/2 ML SDV IV SCH ×3 (09:59→17:20)
[2017-04-18] MEDS ORDERED: CEFTRIAXONE 1 GM/D5W RTU 1 GM/50 ML RTUPB IV SCH (10:00)
[2017-04-18] MEDS ORDERED: PROPRANOLOL HCL 10 MG TABLET PO SCH (10:00)
[2017-04-18] MEDS ORDERED: (PENDING PHARMACY ID) (Bupropion Hcl [Bupropion Xl] 150 MG) PO SCH (10:00)
[2017-04-18] MEDS: CEFTRIAXONE SODIUM 1,000 MG in DEXTROSE 5%-WATER 50 ML IV SCH (17:24)
[2017-04-18] MEDS: ATORVASTATIN CALCIUM 40 MG TABLET PO SCH (22:29)
[2017-04-19] MEDS: OXYCODONE-ACETAMINOPHEN 5-325 MG TABLET PO PRN ×4 (03:27→22:35)
[2017-04-19] MEDS: IPRATROPIUM/ALBUTEROL 0.5-2.5 MG/3 ML AMPUL NEB SCH ×6 (04:06→23:47)
[2017-04-19 05:58] LABS: ABSOLUTE LYMPHOCYTES (AUTO) 0.7 10^3/uL (0.5-4.7); ABSOLUTE MONOCYTES (AUTO) 0.2 10^3/uL (0.1-1.4); ABSOLUTE NEUT (AUTO) 8.6 10^3/uL (1.7-8.2); BASOPHILS % (AUTO) 0.3 % (0-2); HEMATOCRIT 33.1 % (36.0-47.0); HEMOGLOBIN 10.7 g/dL (12.0-15.5); MEAN CORPUSCULAR HEMOGLOBIN 25.4 pg (27.0-33.4); MEAN CORPUSCULAR HGB CONC 32.2 g/dL (32.0-36.0); MEAN CORPUSCULAR VOLUME 79 fl (80-97); MONOCYTES % (AUTO) 2.1 % (3-13); PLATELET COUNT 324 10^3/uL (150-450); RED CELL DISTRIBUTION WIDTH 20.8 % (11.5-14.0); SEGMENTED NEUTROPHILS % (AUTO) 90.6 % (42-78); TOTAL CELLS COUNTED % (AUTO) 100 %; WHITE BLOOD COUNT 9.5 10^3/uL (4.0-10.5)
[2017-04-19] MEDS: LANSOPRAZOLE 30 MG TAB.RAP.DR PO SCH (06:11)
[2017-04-19 06:24] LABS: ANION GAP 8 (5-19); BLOOD UREA NITROGEN 20 mg/dL (7-20); CARBON DIOXIDE 28 mmol/L (22-30); CHLORIDE 105 mmol/L (98-107); GLUCOSE 165 mg/dL (75-110); MAGNESIUM 2.5 mg/dL (1.6-2.3); SODIUM 140.7 mmol/L (137-145)
[2017-04-19 06:44] LABS: POTASSIUM 4.5 mmol/L (3.6-5.0)
[2017-04-19] MEDS: LORAZEPAM 0.5 MG TABLET PO PRN ×2 (07:50→20:34)
[2017-04-19] MEDS ORDERED: VANCOMYCIN HCL 0 MG in DEXTROSE 5%-WATER 250 ML IV NR (08:15)
[2017-04-19] MEDS ORDERED: MODAFINIL 100 MG TABLET PO ONE (08:30)
[2017-04-19] MEDS: BUDESONIDE NEB 0.5 MG/2 ML AMPUL NEB SCH ×2 (08:50→19:54)
[2017-04-19] MEDS: ENOXAPARIN SODIUM INJ 40 MG/0.4 ML DISP.SYRIN SUBCUT SCH (09:08)
[2017-04-19] MEDS: METHYLPREDNISOLONE INJ 125 MG/2 ML SDV IV SCH ×3 (09:08→17:42)
[2017-04-19] MEDS: AZITHROMYCIN 250 MG TABLET PO SCH (09:09)
[2017-04-19] MEDS: ESCITALOPRAM OXALATE 10 MG TABLET PO SCH (09:09)
[2017-04-19] MEDS: GABAPENTIN 300 MG CAPSULE PO SCH ×3 (09:09→17:43)
[2017-04-19] MEDS: GUAIFENESIN 600 MG TABLET.SA PO SCH ×2 (09:11→17:42)
[2017-04-19] MEDS: PROPRANOLOL HCL 20 MG TABLET PO SCH ×2 (09:11→22:35)
[2017-04-19] MEDS: LISINOPRIL 10 MG TABLET PO SCH (09:12)
[2017-04-19] MEDS: BUPROPION HCL 75 MG TABLET PO SCH ×2 (09:23→22:35)
[2017-04-19] MEDS ORDERED: TRAZODONE HCL 50 MG TABLET PO PRN ×2 (09:48→10:00)
[2017-04-19] MEDS: VANCOMYCIN HCL 1,000 MG in DEXTROSE 5%-WATER 250 ML IV SCH ×2 (10:36→22:35)
[2017-04-19] MEDS: CEFTRIAXONE SODIUM 1,000 MG in DEXTROSE 5%-WATER 50 ML IV SCH (17:41)
[2017-04-19] MEDS: ATORVASTATIN CALCIUM 40 MG TABLET PO SCH (22:35)
[2017-04-20] MEDS: IPRATROPIUM/ALBUTEROL 0.5-2.5 MG/3 ML AMPUL NEB SCH ×4 (04:26→16:52)
[2017-04-20 04:41] LABS: ABSOLUTE MONOCYTES (AUTO) 0.6 10^3/uL (0.1-1.4); ABSOLUTE NEUT (AUTO) 10.2 10^3/uL (1.7-8.2); BASOPHILS % (AUTO) 0.3 % (0-2); HEMATOCRIT 31.7 % (36.0-47.0); HEMOGLOBIN 10.2 g/dL (12.0-15.5); LYMPHOCYTES % (AUTO) 8.4 % (13-45); MEAN CORPUSCULAR HEMOGLOBIN 25.3 pg (27.0-33.4); MEAN CORPUSCULAR HGB CONC 32.1 g/dL (32.0-36.0); MEAN CORPUSCULAR VOLUME 79 fl (80-97); MONOCYTES % (AUTO) 5.3 % (3-13); PLATELET COUNT 372 10^3/uL (150-450); RED BLOOD COUNT 4.02 10^6/uL (3.72-5.28); RED CELL DISTRIBUTION WIDTH 20.6 % (11.5-14.0); TOTAL CELLS COUNTED % (AUTO) 100 %; WHITE BLOOD COUNT 11.9 10^3/uL (4.0-10.5)
[2017-04-20 04:57] LABS: ANION GAP 6 (5-19); BLOOD UREA NITROGEN 33 mg/dL (7-20); CALCIUM 9.1 mg/dL (8.4-10.2); CARBON DIOXIDE 32 mmol/L (22-30); CHLORIDE 105 mmol/L (98-107); GLUCOSE 140 mg/dL (75-110); MAGNESIUM 2.5 mg/dL (1.6-2.3); POTASSIUM 4.9 mmol/L (3.6-5.0); SODIUM 143.1 mmol/L (137-145)
[2017-04-20] MEDS: LANSOPRAZOLE 30 MG TAB.RAP.DR PO SCH (05:31)
[2017-04-20] MEDS: OXYCODONE-ACETAMINOPHEN 5-325 MG TABLET PO PRN ×4 (05:32→18:10)
[2017-04-20] MEDS ORDERED: MODAFINIL 100 MG TABLET PO SCH (08:00)
[2017-04-20] MEDS: BUDESONIDE NEB 0.5 MG/2 ML AMPUL NEB SCH (08:10)
[2017-04-20] MEDS: LORAZEPAM 0.5 MG TABLET PO PRN (08:18)
--- NOTE | 2017-04-20 08:49 | Physician Advisory Note ---
Physician Advisor ProgressNote .: [facility] have [facility] medical [facility] for this patient. Physician Advisor Statement: Please consider documenting, if you agree: 1. "Lt hemiparesis" 2. Medical necessity: if we had had a note since 04/17 from attending stating pt was not yet improved enough for d/c, & in what way, she would have already been appropriate for Inpatient status as of 04/18 PM. 3. Has she changed neb supplier companies, or has she not been getting her meds ? (see pharmacy note 04/19/17 in Notes section) Does she use 2L O2 at home, or 4L at baseline, or ....? (that helps clarify if she is needing usual or >usual amount of O2 here) Status discussion: COPD exacerbations typically should be Obs the first day, changing to Inpatient the next day if they have not responded well enough for d/ c. However, this Medicare pt with morbid obesity/BMI 45.7 has underlying chronic respiratory failure, required intubation just 3 weeks ago, has evidence of ongoing exposure to second-hand smoke, and had a week of symptoms prior to returning to hospital. It would not be a stretch for the attending, at time of arrival, to expect she might require more than 1 MN of hospital care before she could be sufficiently improved for safe d/c, though attending would need to clearly document that there was no doubt in her mind that pt would require 2MNs , with reasons, to support Inpt status the first night. Regardless, review today shows she was treated aggressively with q4h Duonebs, qhs Bipap, O2, Cefepime IV, Levaquin IV, IV Mag. On 04/18, attending added Mucinex, tid IV Solumedrol, and changed abx to Zithromax & Rocephin - clearly at that point pt must not have been improving adequately, since the attending was intensifying her regimen. Nursing notes indicated pt still had MICHELLE, inability to lie flat, productive cough, with thick sputum that day. Then, on 04/19, attending ordered NOW dose of Provigil, then qam, and a PT eval. On 04/19, nursing notes still indicate continued thick sputum with her cough. Appropriate to change to Inpatient status. Needs daily notes documenting ongoing attending concerns/medical necessity as well. Thanks for your help! CK
[2017-04-20] MEDS: LISINOPRIL 10 MG TABLET PO SCH (09:32)
[2017-04-20] MEDS: ESCITALOPRAM OXALATE 10 MG TABLET PO SCH (09:32)
[2017-04-20] MEDS: GUAIFENESIN 600 MG TABLET.SA PO SCH ×2 (09:33→17:39)
[2017-04-20] MEDS: AZITHROMYCIN 250 MG TABLET PO SCH (09:33)
[2017-04-20] MEDS: GABAPENTIN 300 MG CAPSULE PO SCH ×3 (09:33→17:38)
[2017-04-20] MEDS: PROPRANOLOL HCL 20 MG TABLET PO SCH (09:33)
[2017-04-20] MEDS: METHYLPREDNISOLONE INJ 125 MG/2 ML SDV IV SCH ×3 (09:34→17:39)
[2017-04-20] MEDS: BUPROPION HCL 75 MG TABLET PO SCH (09:34)
[2017-04-20] MEDS: ENOXAPARIN SODIUM INJ 40 MG/0.4 ML DISP.SYRIN SUBCUT SCH (09:42)
[2017-04-20] MEDS ORDERED: DOXYCYCLINE HYCLATE 100 MG TABLET PO SCH (10:00)
[2017-04-20] MEDS: VANCOMYCIN HCL 1,000 MG in DEXTROSE 5%-WATER 250 ML IV SCH (12:26)
[2017-04-20 16:20] VITALS: BP 129/70
[2017-04-20] MEDS ORDERED: FLUTICASONE NASAL SPRAY 50 MCG/SPRY 120 SPRAY/16 GM NASL ONE (19:00)
[2017-04-20] MEDS ORDERED: FLUTICASONE/SALMETEROL DISKUS 500-50 MCG/DOSE IH ONE (19:00)
[2017-04-20] MEDS ORDERED: ALBUTEROL SULFATE HFA (90 MCG/PUFF) 200 PUFF/8.5 GM MDI IH ONE (19:00)
--- NOTE | 2017-04-20 19:01 | PDOC PROGRESS REPORT ---
Subjective Progress Note for:: 04/18/17 Subjective:: Patient presenting with COPD exacerbation. Patient not wheezing but noted to start wheezing when is around smelling of smoke. Discussed this with the patient. Patient states she is feeling okay today. Reason For Visit: EXACERBATION COPD,ACUTE BRONCITIS,POSITIVE BLOOD Physical Exam Vital Signs: Selected Entries 04/18/17 11:55 Temperature 97.4 F Temperature Oral Source Pulse Rate 65 Respiratory 16 Rate Blood Pressure 132/69 H Blood Pressure 90 Mean BP Location Right Arm BP Position Sitting O2 Sat by Pulse 99 Oximetry Oxygen Flow 3.00 Rate Oxygen Delivery Nasal Cannula Method General appearance: PRESENT: no acute distress, obese Head exam: PRESENT: normocephalic Eye exam: PRESENT: EOMI. ABSENT: scleral icterus Ear exam: PRESENT: normal external ear exam Mouth exam: PRESENT: moist Neck exam: ABSENT: carotid bruit, JVD, lymphadenopathy, thyromegaly Respiratory exam: PRESENT: wheezes. ABSENT: rales, rhonchi Cardiovascular exam: PRESENT: RRR. ABSENT: diastolic murmur, rubs, systolic murmur Pulses: PRESENT: normal dorsalis pedis pul Vascular exam: PRESENT: normal capillary refill GI/Abdominal exam: PRESENT: normal bowel sounds, soft. ABSENT: distended, guarding, mass, organolmegaly, rebound, tenderness Rectal exam: PRESENT: deferred Extremities exam: PRESENT: full ROM. ABSENT: calf tenderness, clubbing, pedal edema Neurological exam: PRESENT: alert, awake, oriented to person, oriented to place , oriented to time, oriented to situation, CN II-XII grossly intact. ABSENT: motor sensory deficit Psychiatric exam: PRESENT: appropriate affect, normal mood. ABSENT: homicidal ideation, suicidal ideation Skin exam: PRESENT: dry, intact, warm. ABSENT: cyanosis, rash Results Laboratory Results: 04/18/17 04/18/17 07:45 07:45 WBC 9.5 RBC 4.05 Hgb 10.3 L Hct 31.4 L MCV 78 L MCH 25.4 L MCHC 32.7 RDW 20.1 H Plt Count 263 Seg Neutrophils % 75.9 Lymphocytes % 14.3 Monocytes % 6.7 Eosinophils % 2.7 Basophils % 0.4 Absolute Neutrophils 7.2 Absolute Lymphocytes 1.4 Absolute Monocytes 0.6 Absolute Eosinophils 0.3 Absolute Basophils 0.0 Sodium 140.8 Potassium 3.3 L Chloride 100 Carbon Dioxide 31 H Anion Gap 10 BUN 8 Creatinine 0.52 Est GFR ( Amer) > 60 Est GFR (Non-Af Amer) > 60 Glucose 116 H Calcium 8.6 Magnesium 2.5 H Impressions: Chest X-Ray 04/17/17 15:04 IMPRESSION: NO ACUTE RADIOGRAPHIC FINDING IN THE CHEST. NO SIGNIFICANT CHANGE FROM PRIOR STUDY. Assessment & Plan - Diagnosis (1) Acute bronchitis Is this a current diagnosis for this admission?: Yes Plan: Patient with cough and clear chest x-ray. Influenza in a and B-. Patient on ceftriaxone and azithromycin. Patient started on nebulizers along with systemic steroids and inhaled steroids. Continue Mucomyst. (2) Hypokalemia Is this a current diagnosis for this admission?: Yes Plan: Resolved. (3) Anxiety and depression Plan: Continue home meds. (4) COPD exacerbation Is this a current diagnosis for this admission?: Yes Plan: Likely due to acute bronchitis. Patient currently on azithromycin and ceftriaxone. Influenza A/B negative. Patient on duo nebs, budesonide, Solu- Medrol, Singulair, and Mucinex. Patient exposed to second hand smoke. (5) MIAH (obstructive sleep apnea) Plan: Bipap was discharged on BiPAP on her last admission. Patient no using bipap. (6) Fibromyalgia Is this a current diagnosis for this admission?: Yes Plan: Continue current medications. (7) History of CVA (cerebrovascular accident) Is this a current diagnosis for this admission?: Yes Plan: With minimal left-sided residual deficit. (8) Hypertension Qualifiers: Hypertension type: essential hypertension Qualified Code(s): I10 - Essential (primary) hypertension Plan: Continue home medications. - Time Time Spent with patient: Less than 15 minutes Anticipated discharge: Home Within: within 72 hours - Inpatient Certification Medical Necessity: Need for Nebulizer Therapy and Monitoring of Response
--- NOTE | 2017-04-20 19:09 | PDOC PROGRESS REPORT ---
Subjective Progress Note for:: 04/19/17 Subjective:: Patient presenting with COPD exacerbation. Patient not wheezing but noted to start wheezing when is around smelling of smoke. Discussed this with the patient. Patient states she is doing okay but she is wheezing some today. Reason For Visit: EXACERBATION COPD,ACUTE BRONCITIS,POSITIVE BLOOD Physical Exam Vital Signs: Selected Entries 04/19/17 04:37 Temperature 98.1 F Temperature Oral Source Pulse Rate 86 Respiratory 18 Rate Blood Pressure 151/86 H [Upper Arm] Blood Pressure 107 Mean [Upper Arm ] Blood Pressure Sitting Position [Upper Arm] O2 Sat by Pulse 94 Oximetry Oxygen Delivery Room Air Method ( includes room air) General appearance: PRESENT: no acute distress, obese, well-developed, well- nourished Head exam: PRESENT: normocephalic Eye exam: ABSENT: scleral icterus Mouth exam: PRESENT: moist Neck exam: ABSENT: carotid bruit, JVD, lymphadenopathy, thyromegaly Respiratory exam: PRESENT: clear to auscultation ramón, wheezes. ABSENT: rales, rhonchi Cardiovascular exam: PRESENT: RRR. ABSENT: diastolic murmur, rubs, systolic murmur Pulses: PRESENT: normal dorsalis pedis pul Vascular exam: PRESENT: normal capillary refill GI/Abdominal exam: PRESENT: normal bowel sounds, soft. ABSENT: distended, guarding, mass, organolmegaly, rebound, tenderness Rectal exam: PRESENT: deferred Extremities exam: PRESENT: full ROM. ABSENT: calf tenderness, clubbing, pedal edema Neurological exam: PRESENT: alert, awake, oriented to person, oriented to place , oriented to time, oriented to situation, CN II-XII grossly intact. ABSENT: motor sensory deficit Psychiatric exam: PRESENT: appropriate affect, normal mood. ABSENT: homicidal ideation, suicidal ideation Skin exam: PRESENT: dry, intact, warm. ABSENT: cyanosis, rash Results Impressions: Chest X-Ray 04/17/17 15:04 IMPRESSION: NO ACUTE RADIOGRAPHIC FINDING IN THE CHEST. NO SIGNIFICANT CHANGE FROM PRIOR STUDY. Assessment & Plan - Diagnosis (1) Acute bronchitis Is this a current diagnosis for this admission?: Yes Plan: Patient with cough and clear chest x-ray. Influenza in a and B-. Patient on ceftriaxone and azithromycin. Continue nebulizers along with systemic steroids and inhaled steroids. Continue Mucomyst. (2) Gram-positive cocci bacteremia Is this a current diagnosis for this admission?: Yes Plan: Continue vancomycin and no growth on repeat cultures. (3) Hypokalemia Is this a current diagnosis for this admission?: Yes Plan: Resolved. (4) Anxiety and depression Plan: Continue home meds. (5) COPD exacerbation Is this a current diagnosis for this admission?: Yes Plan: Likely due to acute bronchitis. Patient currently on azithromycin and ceftriaxone. Influenza A/B negative. Patient on duo nebs, budesonide, Solu- Medrol, Singulair, and Mucinex. Patient exposed to second hand smoke. Room continues to smell of smoke. (6) MIAH (obstructive sleep apnea) Plan: Bipap was discharged on BiPAP on her last admission. Patient not using bipap. (7) Fibromyalgia Is this a current diagnosis for this admission?: Yes Plan: Continue current medications. (8) History of CVA (cerebrovascular accident) Is this a current diagnosis for this admission?: Yes Plan: With minimal left-sided residual deficit. (9) Hypertension Qualifiers: Hypertension type: essential hypertension Qualified Code(s): I10 - Essential (primary) hypertension Plan: Continue home medications. - Time Time Spent with patient: Less than 15 minutes Anticipated discharge: Home Within: within 72 hours - Inpatient Certification Medical Necessity: Need for Nebulizer Therapy and Monitoring of Response, Need for IV Antibiotics
--- NOTE | 2017-04-20 19:19 | PDOC DISCHARGE SUMMARY ---
General - Admit/Disc Date/PCP Admission Date/Primary Care Provider: 04/20/17 09:38 Discharge Date: 04/20/17 - Discharge Diagnosis (1) Acute bronchitis Is this a current diagnosis for this admission?: Yes (2) Gram-positive cocci bacteremia Is this a current diagnosis for this admission?: Yes (3) Hypokalemia Is this a current diagnosis for this admission?: Yes (5) COPD exacerbation Is this a current diagnosis for this admission?: Yes (7) Fibromyalgia Is this a current diagnosis for this admission?: Yes (8) History of CVA (cerebrovascular accident) Is this a current diagnosis for this admission?: Yes - Additional Information Resuscitation Status: Full Code Discharge Activity: Activity As Tolerated Prescriptions: Doxycycline Hyclate [Vibramycin 100 mg Tablet] 100 mg PO Q12 #14 tablet Methylprednisolone [Medrol Dosepack (4 mg/Tab) 21 Tab/Dosepak] 4 mg PO ASDIR # 21 tab.ds.pk Home Medications: Atorvastatin Calcium 40 mg PO QHS 04/17/17 Bupropion HCl [Bupropion Xl] 150 mg PO DAILY 04/17/17 Escitalopram Oxalate [Lexapro] 40 mg PO DAILY 04/17/17 Gabapentin 600 mg PO TID 04/17/17 Hydrochlorothiazide 12.5 mg PO DAILY 04/17/17 Lorazepam [Ativan 0.5 mg Tablet] 0.5 mg PO BID PRN 04/17/17 Propranolol HCl [Inderal 10 mg Tablet] 20 mg PO BID 04/17/17 Tiotropium [place] [Spiriva] 18 mcg IH BID 04/17/17 Topiramate 50 mg PO BID 04/17/17 Trazodone HCl 100 mg PO QHS PRN 04/17/17 Doxycycline Hyclate [Vibramycin 100 mg Tablet] 100 mg PO Q12 #14 tablet Methylprednisolone [Medrol Dosepack (4 mg/Tab) 21 Tab/Dosepak] 4 mg PO ASDIR # 21 tab.ds.pk 04/20/17 Modafinil [Provigil 100 mg Tablet] 100 mg PO QAM tablet 04/20/17 History of Present Illness History of Present Illness: BECKA GOMES is a 56 year old female with a history of COPD, chronic hypoxic respiratory failure on home oxygen, fibromyalgia, chronic back pain, CVA with minimal residual left-sided weakness presented with wheezing and shortness of breath since 13 April. Patient states she was in [place] and doing well however after returning she became ill. Patient does not give a history of smoking however the room smells of smoke. Patient explains that she does not have heat in her apartment but has electrical heaters however due to the severe cold it is unable to keep place warm. Patient has a wet cough however she is able to expectorate any of the phlegm. Patient states because of the coughing her abdominal muscles are sore. Patient states that she is in the hospital every 2-3 weeks despite taking her nebs and using CPAP machine and wants something done about this. Patient was admitted to the hospital back in February and intubated at that time. The ED he was found to have mild leukocytosis, mild hypokalemia and a clear chest x-ray. Blood cultures are drawn and patient was given a dose of ceftriaxone. Hospitalist was called to admit patient for COPD exacerbation due to acute bronchitis. Original H&P dictated by myself Dr. Candice ortega. Please free to H&P for complete details. Hospital Course Hospital Course: Patient presented with COPD exacerbation now known to be due to MRSA pneumonia. Patient, MRSA in her sputum however her chest x-ray was clear. Patient was initially started on ceftriaxone and azithromycin. Patient was started on vancomycin for a gram-positive cocci in clusters blood culture. This was only 1 out of 2 bottles. Repeat blood cultures did not grow. Believe that this may be a contaminant. Patient discharged on doxycycline 100 mg p.o. twice daily for 7 days. was very irate to the point that security had to be called. He was upset stating that patient keeps getting sick. Explained to him that as long as he continues to smoke around his or whether closed being smelling of smoke from his she will continue to have breathing difficulties. Flonase, Advair and pro-air was ordered and given to the patient to take. Unfortunately patient continues to be noncompliant with her trilogy machine and was even noncompliant while in the hospital. Explained to the that we cannot control any of this. However will be happy to take care of her if she needs to return to the hospital. stated that he would not be returning to this hospital with his . Patient had a COPD exacerbation most likely due to her MRSA pneumonia. As stated before patient has obstructive sleep apnea but does not wear her BiPAP machine at home. Patient also has anxiety and depression for which she was continued on her home medications. Patient had hypokalemia which was repleted. Patient was doing clinically better however would have like to keep patient for another night however due to patient's violent outbursts and need for security it was thought best that patient be discharged to follow-up with her doctor. Patient was discharged on doxycycline 100 mg p.o. twice daily and a Solu-Medrol Dosepak. Patient was given Flonase, Advair and pro-air on discharge from the hospital. Physical Exam Vital Signs: Temp Pulse Resp BP Pulse Ox 98.2 F 80 16 129/70 H 96 04/20/17 18:36 04/20/17 18:36 04/20/17 18:36 04/20/17 18:36 04/20/17 18:36 General appearance: PRESENT: no acute distress, well-developed, well-nourished Head exam: PRESENT: atraumatic, normocephalic Eye exam: PRESENT: conjunctiva pink, EOMI, PERRLA. ABSENT: scleral icterus Ear exam: PRESENT: normal external ear exam Mouth exam: PRESENT: moist, tongue midline Neck exam: ABSENT: carotid bruit, JVD, lymphadenopathy, thyromegaly Respiratory exam: PRESENT: wheezes. ABSENT: rales, rhonchi Cardiovascular exam: PRESENT: RRR. ABSENT: diastolic murmur, rubs, systolic murmur Pulses: PRESENT: normal dorsalis pedis pul Vascular exam: PRESENT: normal capillary refill GI/Abdominal exam: PRESENT: normal bowel sounds, soft. ABSENT: distended, guarding, mass, organolmegaly, rebound, tenderness Rectal exam: PRESENT: deferred Extremities exam: PRESENT: full ROM. ABSENT: calf tenderness, clubbing, pedal edema Neurological exam: PRESENT: alert, awake, oriented to person, oriented to place , oriented to time, oriented to situation, CN II-XII grossly intact. ABSENT: motor sensory deficit Psychiatric exam: PRESENT: appropriate affect, normal mood. ABSENT: homicidal ideation, suicidal ideation Skin exam: PRESENT: dry, intact, warm. ABSENT: cyanosis, rash Results Laboratory Results: 04/20/17 04/20/17 04:20 04:20 WBC 11.9 H RBC 4.02 Hgb 10.2 L Hct 31.7 L MCV 79 L MCH 25.3 L MCHC 32.1 RDW 20.6 H Plt Count 372 Seg Neutrophils % 86.0 H Lymphocytes % 8.4 L Monocytes % 5.3 Eosinophils % 0.0 Basophils % 0.3 Absolute Neutrophils 10.2 H Absolute Lymphocytes 1.0 Absolute Monocytes 0.6 Absolute Eosinophils 0.0 Absolute Basophils 0.0 Sodium 143.1 Potassium 4.9 Chloride 105 Carbon Dioxide 32 H Anion Gap 6 BUN 33 H Creatinine 0.86 Est GFR ( Amer) > 60 Est GFR (Non-Af Amer) > 60 Glucose 140 H Calcium 9.1 Magnesium 2.5 H Impressions: Chest X-Ray 04/17/17 15:04 IMPRESSION: NO ACUTE RADIOGRAPHIC FINDING IN THE CHEST. NO SIGNIFICANT CHANGE FROM PRIOR STUDY. Qualifiers PATEINT BEING DISCHARGED WITH ANY OF THE FOLLOWING DIAGNOSIS?: No Plan Time Spent: Greater than 30 Minutes - Charge home to continue Flonase twice daily, Advair twice daily and pro-air every 4 as needed as needed for wheezing and shortness of breath and Medrol Dosepak for her COPD exacerbation due to her MRSA pneumonia.. Patient to take doxycycline 100 mg p.o. twice daily for 7 days for her and her as a pneumonia.
== END 2017-04-20 19:15 | disposition home or self-care (01) | DRG 202 ==
LOC: ER 13:17 → EH 18:20 → INTOOBSV 18:20 → 4N 20:21 → OBSVTOIN 04-20 09:38
PROVIDERS: ADMIT Internal Medicine; ATTEND Internal Medicine
DX: J20.9 Acute bronchitis, unspecified (principal); R78.81 Bacteremia; J44.0 Chronic obstructive pulmonary disease with (acute) lower respiratory infection; J44.1 Chronic obstructive pulmonary disease with (acute) exacerbation; J96.11 Chronic respiratory failure with hypoxia; I69.354 Hemiplegia and hemiparesis following cerebral infarction affecting left non-dominant side; E87.6 Hypokalemia; J45.998 Other asthma; I10 Essential (primary) hypertension; E11.9 Type 2 diabetes mellitus without complications; F41.8 Other specified anxiety disorders; G47.33 Obstructive sleep apnea (adult) (pediatric); M06.9 Rheumatoid arthritis, unspecified; M79.7 Fibromyalgia; Z77.22 Contact with and (suspected) exposure to environmental tobacco smoke (acute) (chronic); Z87.891 Personal history of nicotine dependence; Z99.81 Dependence on supplemental oxygen; Z87.01 Personal history of pneumonia (recurrent); Z86.14 Personal history of Methicillin resistant Staphylococcus aureus infection
CPT/HCPCS: 36415; 71045; 80048; 80053; 82550; 82553; 83735; 84484; 85025; 87040; 87070; 87077; 87186; 87205; 87804; 93005; 93010; 94640; 96374; 99291; G0378; G8978-GP; G8979-GP; J0696; J1650; J2405; J2930; J3370; J3475; J3490; J7030; J7060; J7620

== ENCOUNTER 2018-06-17 14:41 | Observation (INO) | payer MEDICARE, MEDICAID ==
--- NOTE | 2018-06-17 14:54 | ER Document Report ---
ED Cardiac - General Chief Complaint: Chest Pain Stated Complaint: CHEST PAIN Time Seen by Provider: 06/17/18 14:54 Notes: 's a 57-year-old female, history of hypertension, history of ME, history of anxiety. Reports being under a lot of stress. Started having some chest tightness and chest pain. Symptoms began approximately 1 week ago when culminated in an EMS call today. Patient received 3 rounds of nitro and aspirin. States the pain is gone. Initially the pain was in the central portion of her chest. She denied any nausea, vomiting, fever, chills, sweats. Has had a DVT in the past. Denies any swelling of the calves or significant shortness of breath however she does have COPD and chronic shortness of breath. When asked what is her biggest concern and what that she thinks is going on she says "anxiety". TRAVEL OUTSIDE OF THE [place] IN LAST 30 DAYS: No - HPI Patient complains to provider of: Chest pain, Chest tightness, Shortness of breath Was the onset of pain: Gradual Is the pain a: Chronic problem Chest pain location: Substernal Quality of pain: Intermittent Chest pain radiation location: Back Severity now: None Severity at worst: Severe Pain level currently: 4 Cardiac risk factors: Hypertension, + Family history, Hx ME Associated symptoms: None - Related Data Allergies/Adverse Reactions: cortisone [Cortisone] Allergy (Verified 06/17/18 15:06) hydrocodone bitartrate [From Vicodin] Allergy (Verified 06/17/18 15:06) Past Medical History - General Information source: Patient - Social History Smoking Status: Never Smoker Frequency of alcohol use: None Drug Abuse: None Lives with: Family Family History: DM, Hypertension, Malignancy - Past Medical History Cardiac Medical History: Reports: Hx Hypertension, Hx Pulmonary Embolism Denies: Hx Atrial Fibrillation, Hx Congestive Heart Failure, Hx Coronary A rtery Disease, Hx Heart Attack, Hx Hypercholesterolemia, Hx Peripheral Vascular Disease, Hx Heart Murmur Pulmonary Medical History: Reports: Hx Asthma, Hx COPD Denies: Hx Tuberculosis Neurological Medical History: Reports: Hx Cerebrovascular Accident - June 2016. Denies: Hx Seizures Endocrine Medical History: Reports: Hx Diabetes Mellitus Type 2 Renal/ Medical History: Denies: Hx Peritoneal Dialysis GI Medical History: Reports: Hx Ulcer Musculoskeletal Medical History: Reports Hx Arthritis - RA, Reports Hx Fibromyalgia Psychiatric Medical History: Reports: Hx Anxiety, Hx Depression Past Surgical History: Reports: Hx Section - X4, Hx Cholecystectomy - 2011, Hx Orthopedic Surgery - bilat knee meniscus repair, neck surgery ACF, Hx Tonsillectomy - 1969. Denies: Hx Appendectomy, Hx Bowel Surgery, Hx Coronary Artery Bypass Graft, Hx Gastric Bypass Surgery, Hx Herniorrhaphy, Hx H ysterectomy, Hx Mastectomy, Hx Pacemaker, Hx Tubal Ligation - Immunizations Hx Diphtheria, Pertussis, Tetanus Vaccination: Yes Review of Systems - Review of Systems Notes: Constitutional: denies: Chills, Diaphoresis, Fever, Malaise, Weakness EENT: denies: Eye discharge, Blurred vision, Tearing, Double vision, Nose congestion, Nose discharge, Throat swelling, Mouth pain Cardiovascular: denies: Palpitations, Heart racing, Orthopnea,+Dyspnea, +Chest pain Respiratory: denies: Cough, Hurts to breathe, Wheezing, +Shortness of breath Gastrointestinal: denies: Abdominal pain, Diarrhea, Nausea, Vomiting, Black stools, bright red blood in stool Genitourinary: denies: Burning, Dysuria, Discharge, Frequency, Flank pain, Hematuria Musculoskeletal: denies: Joint pain, Joint swelling, Muscle pain, Muscle stiffness, back pain Hematologic/Lymphatic: denies: Anemia, Easy bleeding, Easy bruising, Blood clots Neurological/Psychological: denies: Confusion, Dementia, Depression, Loss of con sciousness Skin: No lesions, no masses, no skin breakdown, no abscesses Physical Exam - Vital signs Vitals: Temp 98.0 F 06/17/18 14:43 Interpretation: Normal - Notes Notes: This is a white female in no acute distress at this time. Vital signs are wit hin normal limits at this time. 99.7 kg - General General appearance: Appears well, Alert - HEENT Head: Normocephalic, Atraumatic Eyes: Normal Pupils: PERRL - Respiratory Respiratory status: No respiratory distress Chest status: Nontender Breath sounds: Normal Chest palpation: Normal - Cardiovascular Rhythm: Regular Heart sounds: Normal auscultation Murmur: No - Abdominal Inspection: Normal Distension: No distension Bowel sounds: Normal Tenderness: Nontender Organomegaly: No organomegaly - Back Back: Normal, Nontender - Extremities General upper extremity: Normal inspection, Nontender, Normal color, Normal ROM, Normal temperature General lower extremity: Normal inspection, Nontender, Normal color, Normal ROM, Normal temperature, Normal weight bearing. No: Jacob's sign - Neurological Neuro grossly intact: Yes Cognition: Normal Orientation: AAOx4 Plummer Coma Scale Eye Opening: Spontaneous Walter Coma Scale Verbal: Oriented Plummer Coma Scale Motor: Obeys Commands Plummer Coma Scale Total: 15 Speech: Normal Motor strength normal: LUE, RUE, LLE, RLE Sensory: Normal - Psychological Associated symptoms: Normal affect, Normal mood - Skin Skin Temperature: Warm Skin Moisture: Dry Skin Color: Normal Course - Re-evaluation Re-evalutation: 06/17/18 17:22 Laboratory 06/17/18 06/17/18 06/17/18 14:20 14:20 14:20 WBC 11.2 H RBC 4.84 Hgb 11.6 L Hct 36.5 MCV 75 L MCH 23.9 L MCHC 31.7 L RDW 18.5 H Plt Count 357 Seg Neutrophils % 69.8 Lymphocytes % 21.7 Monocytes % 5.1 Eosinophils % 2.7 Basophils % 0.7 Absolute Neutrophils 7.8 Absolute Lymphocytes 2.4 Absolute Monocytes 0.6 Absolute Eosinophils 0.3 Absolute Basophils 0.1 D-Dimer Sodium 138.8 Potassium 4.3 Chloride 98 Carbon Dioxide 31 H Anion Gap 10 BUN 17 Creatinine 0.71 Est GFR ( Amer) > 60 Est GFR (Non-Af Amer) > 60 Glucose 93 Calcium 9.3 Total Bilirubin 0.4 Direct Bilirubin 0.1 Neonat Total Bilirubin Not Reportable Neonat Direct Bilirubin Not Reportable Neonat Indirect Bili Not Reportable AST 24 ALT 24 Alkaline Phosphatase 122 Creatine Kinase 33 CK-MB (CK-2) < 0.22 Troponin I < 0.012 Total Protein 7.2 Albumin 4.1 06/17/18 14:20 WBC RBC Hgb Hct MCV MCH MCHC RDW Plt Count Seg Neutrophils % Lymphocytes % Monocytes % Eosinophils % Basophils % Absolute Neutrophils Absolute Lymphocytes Absolute Monocytes Absolute Eosinophils Absolute Basophils D-Dimer 0.45 Sodium Potassium Chloride Carbon Dioxide Anion Gap BUN Creatinine Est GFR ( Amer) Est GFR (Non-Af Amer) Glucose Calcium Total Bilirubin Direct Bilirubin Neonat Total Bilirubin Neonat Direct Bilirubin Neonat Indirect Bili AST ALT Alkaline Phosphatase Creatine Kinase CK-MB (CK-2) Troponin I Total Protein Albumin Chest X-Ray 06/17/18 14:44 IMPRESSION: NO ACUTE FINDINGS. Patient has a heart score of 5. Significant presenting symptoms of chest pain. At this time initial troponin is negative and is chest pain-free. Blood pressure still high. Patient is to be admitted for rule out possible stress test. Will consult with hospitalist for admission at this time. - Vital Signs Vital signs: Temp Pulse Resp BP Pulse Ox 98.0 F 12 96 06/17/18 14:43 06/17/18 15:06 06/17/18 15:06 - Laboratory Result Diagrams: 06/17/18 14:20 06/17/18 14:20 Laboratory results interpreted by me: 06/17/18 06/17/18 14:20 14:20 WBC 11.2 H Hgb 11.6 L MCV 75 L MCH 23.9 L MCHC 31.7 L RDW 18.5 H Carbon Dioxide 31 H - EKG Interpretation by Ut EKG shows normal: Sinus rhythm, Vantage, Intervals, QRS Complexes, ST-T Waves Voltage: Consistant with LVH Discharge - Discharge Clinical Impression: Acute angina Condition: Good Disposition: ADMITTED INPATIENT Admitting Provider: Hospitalist - [facility] Unit Admitted: Telemetry
[2018-06-17 15:02] LABS: ABSOLUTE BASOPHILS # (AUTO) 0.1 10^3/uL (0.0-0.2); ABSOLUTE EOSINOPHILS # (AUTO) 0.3 10^3/uL (0.0-0.6); ABSOLUTE LYMPHOCYTES (AUTO) 2.4 10^3/uL (0.5-4.7); ABSOLUTE MONOCYTES (AUTO) 0.6 10^3/uL (0.1-1.4); ABSOLUTE NEUT (AUTO) 7.8 10^3/uL (1.7-8.2); BASOPHILS % (AUTO) 0.7 % (0-2); EOSINOPHILS % (AUTO) 2.7 % (0-6); HEMATOCRIT 36.5 % (36.0-47.0); HEMOGLOBIN 11.6 g/dL (12.0-15.5); LYMPHOCYTES % (AUTO) 21.7 % (13-45); MEAN CORPUSCULAR HEMOGLOBIN 23.9 pg (27.0-33.4); MEAN CORPUSCULAR HGB CONC 31.7 g/dL (32.0-36.0); MEAN CORPUSCULAR VOLUME 75 fl (80-97); MONOCYTES % (AUTO) 5.1 % (3-13); PLATELET COUNT 357 10^3/uL (150-450); RED BLOOD COUNT 4.84 10^6/uL (3.72-5.28); RED CELL DISTRIBUTION WIDTH 18.5 % (11.5-14.0); SEGMENTED NEUTROPHILS % (AUTO) 69.8 % (42-78); TOTAL CELLS COUNTED % (AUTO) 100 %; WHITE BLOOD COUNT 11.2 10^3/uL (4.0-10.5)
[2018-06-17 15:22] LABS: ALANINE AMINOTRANSFERASE 24 U/L (9-52); ALBUMIN 4.1 g/dL (3.5-5.0); ALKALINE PHOSPHATASE 122 U/L (38-126); ANION GAP 10 (5-19); ASPARTATE AMINO TRANSFERASE 24 U/L (14-36); BILIRUBIN,DIRECT 0.1 mg/dL (0.0-0.4); BILIRUBIN,TOTAL 0.4 mg/dL (0.2-1.3); BLOOD UREA NITROGEN 17 mg/dL (7-20); CALCIUM 9.3 mg/dL (8.4-10.2); CARBON DIOXIDE 31 mmol/L (22-30); CHLORIDE 98 mmol/L (98-107); CREATINE KINASE 33 U/L (30-135); GLUCOSE 93 mg/dL (75-110); POTASSIUM 4.3 mmol/L (3.6-5.0); SODIUM 138.8 mmol/L (137-145); TOTAL PROTEIN 7.2 g/dL (6.3-8.2)
[2018-06-17 15:35] LABS: CREATINE KINASE MB < 0.22 ng/mL (<4.55); TROPONIN I < 0.012 ng/mL
--- NOTE | 2018-06-17 16:05 | RADIOLOGY REPORT (SQ) ---
EXAM DESCRIPTION: CHEST SINGLE VIEW COMPLETED DATE/TIME: 06/17/2018 3:53 pm REASON FOR STUDY: chest pain COMPARISON: 08/18/2016 TECHNIQUE: Single frontal radiographic view of the chest acquired. NUMBER OF VIEWS: One view. LIMITATIONS: None. FINDINGS: LUNGS AND PLEURA: No pneumothorax. No consolidation or pleural effusion. MEDIASTINUM AND HILAR STRUCTURES: Stable. HEART AND VASCULAR STRUCTURES: Stable. BONES: No acute findings. HARDWARE: None in the chest. OTHER: No other significant finding. IMPRESSION: NO ACUTE FINDINGS. TECHNICAL DOCUMENTATION: JOB ID: [id number] [id number] 2010 [employer]- All Rights Reserved Reading location - IP/workstation name: [email or web address]
[2018-06-17] MEDS ORDERED: FENTANYL CITRATE INJ/PF 100 MCG/2 ML AMPUL IV ONE (16:33)
[2018-06-17] MEDS ORDERED: ACETAMINOPHEN 325 MG TABLET PO ONE (16:33)
[2018-06-17] MEDS ORDERED: NITROGLYCERIN 2% OINTMENT 1 GM PACKET TP ONE (17:19)
[2018-06-17] MEDS ORDERED: ZOLPIDEM TARTRATE 5 MG TABLET PO PRN (19:58)
[2018-06-17] MEDS ORDERED: GLUCAGON,HUMAN RECOMB 1 MG INJ SUBCUT PRN (19:58)
[2018-06-17] MEDS ORDERED: ONDANSETRON HCL INJ/PF 4 MG/2 ML SDV IV PRN (19:58)
[2018-06-17] MEDS ORDERED: DEXTROSE 50%-WATER 25 GM/50 ML DISP.SYRIN IV PRN ×2 (19:58)
[2018-06-17] MEDS ORDERED: MAG HYDROX/AL HYDROX/SIMETH SUSP 30 ML UDCUP PO PRN (19:58)
[2018-06-17] MEDS ORDERED: DEXTROSE 40% GEL 15 GM TUBE PO PRN ×2 (19:58)
[2018-06-17] MEDS ORDERED: MAGNESIUM HYDROXIDE SUSP 30 ML UDCUP PO PRN (19:58)
[2018-06-17] MEDS ORDERED: NITROGLYCERIN 0.4 MG/TAB 25 TAB/BOTTLE SL PRN (20:09)
[2018-06-17] MEDS ORDERED: DIAZEPAM INJ 10 MG/2 ML DISP.SYRIN IV PRN (20:09)
[2018-06-17] MEDS ORDERED: NICOTINE 21 MG/24 HR PATCH.TD24 TD PRN (20:09)
[2018-06-17] MEDS ORDERED: MORPHINE SULFATE 10 MG/ML INJ IV PRN ×4 (20:09→21:03)
--- NOTE | 2018-06-17 20:53 | EKG REPORT ---
SEVERITY:- ABNORMAL ECG - SINUS RHYTHM LEFT VENTRICULAR HYPERTROPHY CONSIDER ANTERIOR INFARCT : Confirmed by: Teri Hanson MD 17-Jun-2018 20:53:13
--- NOTE | 2018-06-17 20:53 | EKG REPORT ---
SEVERITY:- ABNORMAL ECG - SINUS RHYTHM LEFT VENTRICULAR HYPERTROPHY CONSIDER ANTERIOR INFARCT : Confirmed by: Teri Hanson MD 17-Jun-2018 20:53:06
[2018-06-17] MEDS: PANTOPRAZOLE SODIUM 40 MG VIAL IV SCH (22:16)
[2018-06-17] MEDS: HEPARIN SOD (PORCINE) 5,000 UNIT/ML 1 ML SYRINGE SUBCUT SCH (22:16)
[2018-06-17] MEDS: NORMAL SALINE 1000 ML 1,000 ML IV PRN (23:46)
[2018-06-18 01:26] LABS: TROPONIN I < 0.012 ng/mL
[2018-06-18 01:41] LABS: CREATINE KINASE MB < 0.22 ng/mL (<4.55)
--- NOTE | 2018-06-18 03:17 | PDOC H&P ---
History of Present Illness Admission Date/PCP: 06/17/18 17:37 Patient complains of: Chest pain History of Present Illness: BECKA GOMES is a 57 year old female who presented to the emergency room with a one-week history of chest pain. Patient admits that she has had essentially continuous mild pain in her anterior chest over the last week which had remained stable until shortly prior to her admission. She admits that this afternoon while she was shopping at the [employer], using a motorized cart and wearing her oxygen, she developed the sudden onset of constant, severe, crushing substernal chest pain, with radiation to her left shoulder and straight through to her back. EMS was summoned and after getting her first nitroglycerin her pain dropped from a 10 to a 7 or 8 and then dropped to a 5 after the second nitroglycerin and a 3 after the third nitroglycerin. Her pain remained at a 3 throughout most of her hospital course but finally resolved after application of nitroglycerin paste. She complains of a persistent moderately severe global hea dache since the nitroglycerin paste has been applied and she also has a great deal of anxiety. She has had prior similar episodes but none as severe and she has not identified any other aggravating or ameliorating factors for her chest pain. In the emergency room she was found to have cardiac enzymes and EKG which were negative for acute myocardial ischemia or injury. She was subsequently admitted for further evaluation and treatment. Past Medical History Cardiac Medical History: Reports: DVT, Hypertension, Pulmonary Embolism Denies: Atrial Fibrillation, Congestive Heart Failure, Coronary Artery Disease, Myocardial Infarction, Hyperlipidema, Peripheral Vascular Disease, Heart Murmur Pulmonary Medical History: Reports: Asthma, Chronic Obstructive Pulmonary Disease (COPD) Denies: Tuberculosis EENT Medical History: Denies: Cataracts Neurological Medical History: Denies: Hemorrhagic CVA, Ischemic CVA, Seizures Endocrine Medical History: Reports: Diabetes Mellitus Type 2, Obesity Denies: Diabetes Mellitus Type 1, Hyperthyroidism, Hypothyroidism Renal/ Medical History: Denies: Chronic Kidney Disease, Nephrolithiasis Malignancy Medical History: Reports: None GI Medical History: Denies: Cirrhosis, Hepatitis Musculoskeltal Medical History: Reports: Arthritis - RA, Fibromyalgia Skin Medical History: Denies: Eczema, Psoriasis Psychiatric Medical History: Reports: Depression, General Anxiety Disorder Denies: Alcohol Dependency, Substance Abuse, Tobacco Dependency Traumatic Medical History: Reports: None Hematology: Denies: Anemia, Bleeding Tendencies Infectious Medical History: Reports: None Past Surgical History Past Surgical History: Reports: Section - X4, Cholecystectomy - 2011, Orthopedic Surgery - bilat knee meniscus repair, neck surgery ACF, Tonsillectomy - 1968 Social History Information Source: Patient Lives with: Family Smoking Status: Never Smoker Frequency of Alcohol Use: None Hx Recreational Drug Use: No Drugs: None Hx Prescription Drug Abuse: No - Advance Directive Resuscitation Status: Full Code Surrogate healthcare decision maker:: Spouse Family History Family History: DM, Hypertension, Malignancy Parental Family History Reviewed: Yes Children Family History Reviewed: No Sibling(s) Family History Reviewed.: Yes Medication/Allergy Home Medications: Bupropion HCl [Bupropion Xl] 150 mg PO DAILY 04/17/17 Escitalopram Oxalate [Lexapro] 40 mg PO DAILY 04/17/17 Gabapentin 600 mg PO Q8 04/17/17 Lorazepam [Ativan 0.5 mg Tablet] 1 mg PO DAILYP PRN 04/17/17 Propranolol HCl [Inderal 10 mg Tablet] 20 mg PO Q8 04/17/17 Oxycodone HCl [Oxy-Ir 5 mg Tablet] 5 mg PO Q6HP PRN 06/17/18 Allergies/Adverse Reactions: cortisone [Cortisone] Allergy (Verified 06/17/18 15:06) hydrocodone bitartrate [From Vicodin] Allergy (Verified 06/17/18 15:06) Review of Systems Constitutional: ABSENT: chills, fever(s) Eyes: ABSENT: visual disturbances, other - Ocular pain Ears: ABSENT: hearing changes, other - Ear pain Nose, Mouth, and Throat: ABSENT: mouth pain, sore throat Cardiovascular: PRESENT: chest pain. ABSENT: dyspnea on exertion, edema, orth ropnea, palpitations Respiratory: ABSENT: cough, dyspnea Gastrointestinal: ABSENT: abdominal pain, constipation, diarrhea, nausea, vomiting Genitourinary: ABSENT: dysuria, hematuria Musculoskeletal: ABSENT: deformity, joint swelling Integumentary: ABSENT: pruritus, rash Neurological: ABSENT: confusion, convulsions, focal weakness, memory loss Psychiatric: PRESENT: anxiety, other - Under a lot of stress lately. ABSENT: de pression Endocrine: ABSENT: cold intolerance, heat intolerance Hematologic/Lymphatic: ABSENT: easy bleeding, easy bruising Physical Exam Vital Signs: Temp Pulse Resp BP Pulse Ox 98.0 F 13 138/69 H 95 06/17/18 14:43 06/17/18 19:00 06/17/18 18:01 06/17/18 19:00 Intake & Output 06/15/18 06/16/18 06/17/18 23:59 23:59 23:59 Weight 99.79 kg General appearance: PRESENT: no acute distress, cooperative, morbidly obese Head exam: PRESENT: atraumatic, normocephalic Eye exam: PRESENT: conjunctiva pink. ABSENT: scleral icterus Ear exam: PRESENT: normal external ear exam. ABSENT: bleeding, drainage Mouth exam: PRESENT: dry mucosa, neck supple Neck exam: ABSENT: thyromegaly, tracheal deviation Respiratory exam: PRESENT: clear to auscultation ramón, symmetrical, unlabored Cardiovascular exam: PRESENT: RRR. ABSENT: clicks, gallop, rubs Pulses: PRESENT: normal radial pulses, normal dorsalis pedis pul Vascular exam: PRESENT: normal capillary refill. ABSENT: pallor GI/Abdominal exam: PRESENT: normal bowel sounds, soft Rectal exam: PRESENT: deferred Extremities exam: ABSENT: joint swelling, pedal edema Musculoskeletal exam: PRESENT: normal inspection. ABSENT: deformity, dislocation Neurological exam: PRESENT: alert, oriented to person, oriented to place, oriented to time, oriented to situation, CN II-XII grossly intact. ABSENT: motor sensory deficit Psychiatric exam: PRESENT: appropriate affect, normal mood Skin exam: PRESENT: dry, intact, warm. ABSENT: jaundice, rash, urticaria Results Laboratory Results: 06/17/18 14:20 06/17/18 14:20 06/17/18 06/17/18 14:20 14:20 WBC 11.2 H RBC 4.84 Hgb 11.6 L Hct 36.5 MCV 75 L MCH 23.9 L MCHC 31.7 L RDW 18.5 H Plt Count 357 Seg Neutrophils % 69.8 Lymphocytes % 21.7 Monocytes % 5.1 Eosinophils % 2.7 Basophils % 0.7 Absolute Neutrophils 7.8 Absolute Lymphocytes 2.4 Absolute Monocytes 0.6 Absolute Eosinophils 0.3 Absolute Basophils 0.1 Sodium 138.8 Potassium 4.3 Chloride 98 Carbon Dioxide 31 H Anion Gap 10 BUN 17 Creatinine 0.71 Est GFR ( Amer) > 60 Est GFR (Non-Af Amer) > 60 Glucose 93 Calcium 9.3 Total Bilirubin 0.4 AST 24 ALT 24 Alkaline Phosphatase 122 Total Protein 7.2 Albumin 4.1 06/17/18 06/17/18 06/17/18 14:20 14:20 18:11 Creatine Kinase 33 CK-MB (CK-2) < 0.22 Troponin I < 0.012 < 0.012 Impressions: Chest X-Ray 06/17/18 14:44 IMPRESSION: NO ACUTE FINDINGS. Assessment & Plan - Diagnosis (1) Chest pain Qualifiers: Chest pain type: unspecified Qualified Code(s): R07.9 - Chest pain, unspecified Is this a current diagnosis for this admission?: Yes Plan: Patient be admitted to the hospital and serial cardiac enzymes and EKGs will be used to determine the presence of cardiac ischemia or injury. He patient will be evaluated by Dr. Hanson and determination for possible stress test or other evaluation will be in his hands. Patient's pain will be treated with morphine sulfate 2-4 mg IV every 2 hours as needed per sliding scale. (2) Anxiety and depression Is this a current diagnosis for this admission?: Yes Plan: Patient will be continued on her current medication after her hospital discharge however she will have available intravenous Valium 5 mg every 4 hours as needed for anxiety until she is able to take oral medication tomorrow. (3) GERD (gastroesophageal reflux disease) Qualifiers: Esophagitis presence: esophagitis presence not specified Qualified Code(s): K21.9 - Gastro-esophageal reflux disease without esophagitis Is this a current diagnosis for this admission?: Yes Plan: Patient will be treated with Reglan, sucralfate and Protonix for control of her gastroesophageal reflux disease. She will resume her oral medications tomorrow once she is started back on a diet. (4) Hypertension Qualifiers: Hypertension type: essential hypertension Qualified Code(s): I10 - Essential (primary) hypertension Is this a current diagnosis for this admission?: Yes Plan: Patient's blood pressure will be treated with hydralazine 20 mg IV every 4 hours as needed for systolic pressure greater than 160 or diastolic pressure greater than 90. Additionally the patient may receive metoprolol 5 mg IV every 4 hours for the same blood pressure treatment initiation range. (5) Morbid obesity with BMI of 40.0-44.9, adult Is this a current diagnosis for this admission?: Yes Plan: Patient will be seen by the telephone services sales representative with an evaluation performed and recommendations for diet and lifestyle changes to help enhance the patient's life and medical health. - Time Time Spent: 30 to 50 Minutes Critical Time spent with patient: Less than 15 minutes Medications reviewed and adjusted accordingly: Yes Anticipated discharge: Home - Inpatient Certification Based on my medical assessment, after consideration of the patient's comorbidities, presenting symptoms, or acuity I expect that the services needed warrant INPATIENT care.: No I certify that my determination is in accordance with my understanding of Medicare's requirements for reasonable and necessary INPATIENT services [42 CFR 412.3e].: No Medical Necessity: Significant Comorbidiites Make Outpatient Treatment Too Risky, Need Close Monitoring Due to Risk of Patient Decompensation, Need For Continuous Telemetry Monitoring, Need for Pain Control, Risk of Complication if Not Cared For in Hospital
[2018-06-18 03:25] LABS: FREE T3 4.02 pg/mL (2.77-5.27); FREE T4 (FREE THYROXINE) 1.02 ng/dL (0.78-2.19)
[2018-06-18] MEDS: HEPARIN SOD (PORCINE) 5,000 UNIT/ML 1 ML SYRINGE SUBCUT SCH ×2 (05:33→13:26)
[2018-06-18 06:28] LABS: HEMATOCRIT 31.3 % (36.0-47.0); HEMOGLOBIN 10.1 g/dL (12.0-15.5); MEAN CORPUSCULAR HEMOGLOBIN 24.3 pg (27.0-33.4); MEAN CORPUSCULAR HGB CONC 32.2 g/dL (32.0-36.0); MEAN CORPUSCULAR VOLUME 76 fl (80-97); PLATELET COUNT 279 10^3/uL (150-450); RED BLOOD COUNT 4.14 10^6/uL (3.72-5.28); RED CELL DISTRIBUTION WIDTH 18.6 % (11.5-14.0); WHITE BLOOD COUNT 8.4 10^3/uL (4.0-10.5)
[2018-06-18 07:03] LABS: ANION GAP 8 (5-19); BLOOD UREA NITROGEN 19 mg/dL (7-20); CALCIUM 8.7 mg/dL (8.4-10.2); CARBON DIOXIDE 29 mmol/L (22-30); CHLORIDE 101 mmol/L (98-107); CHOLESTEROL 133.78 mg/dL (0-200); GLUCOSE 124 mg/dL (75-110); POTASSIUM 3.9 mmol/L (3.6-5.0); SODIUM 138.3 mmol/L (137-145); TRIGLYCERIDES 116 mg/dL (<150)
[2018-06-18 07:04] LABS: CREATINE KINASE MB < 0.22 ng/mL (<4.55); TROPONIN I < 0.012 ng/mL
[2018-06-18 07:13] LABS: DIRECT LDL 73 mg/dL (<100)
[2018-06-18] MEDS ORDERED: DOCUSATE SODIUM 100 MG CAPSULE PO SCH (10:00)
[2018-06-18] MEDS: PANTOPRAZOLE SODIUM 40 MG VIAL IV SCH (10:20)
[2018-06-18] MEDS: NORMAL SALINE 1000 ML 1,000 ML IV PRN (10:21)
[2018-06-18] MEDS ORDERED: ASPIRIN 81 MG TABLET, CHEWABLE PO ONE (11:34)
[2018-06-18] MEDS ORDERED: ISOSORBIDE MONONITRATE 60 MG TAB.ER.24H PO SCH (12:00)
--- NOTE | 2018-06-18 12:36 | EKG REPORT ---
SEVERITY:- BORDERLINE ECG - SINUS RHYTHM LVH BY VOLTAGE : Confirmed by: Teri Hanson MD 18-Jun-2018 12:35:37
[2018-06-18] MEDS ORDERED: METOPROLOL SUCCINATE 25 MG TAB.SR.24H PO SCH (13:00)
[2018-06-18 13:09] LABS: CREATINE KINASE MB < 0.22 ng/mL (<4.55); TROPONIN I < 0.012 ng/mL
[2018-06-18 16:09] VITALS: BP 144/71
--- NOTE | 2018-06-18 19:14 | PDOC CONSULTATION ---
Consultation-Blank Consultation: cardiology CONSULTATION by Dr. Teri Hanson on 06/18/2018. Patient seen at 8:30 AM on 06/18/2018. REASON FOR CONSULTATION: Evaluation of patient with multiple CAD risk factors admitted with chest pain. HISTORY OF PRESENT ILLNESS: Patient is a pleasant obese 57-year-old female with a history of hypertension and cysts asthma/COPD and hypertension states that when she was shopping [place] [employer] using a motorized cart she had sudden onset of sharp pain in the left front of the chest. It stayed constant for several hours. She states that it hurt when he took a deep breath but it was not pleuritic she also notices that pressing on the left front of the chest and reproduce the pain. There was no diaphoresis or nausea or vomiting. She was short of breath, but there is no palpitations or diaphoresis. She states that it radiated into her left shoulder left side of neck, and shot through to her back. She was given 3 sublingual nitroglycerin and also put on Nitropaste. She states after about an hour after the last dose of some lingual nitroglycerin her chest pain subsided. She denied any palpitations, near-syncope or syncope. There is no PND or orthopnea. She denies any acute exacerbation of asthma or COPD. Her EKG shows no acute changes, and her cardiac enzymes are negative. PAST MEDICAL HISTORY: She has a history of hypertension. She is not on any antilipid medication, but her lipid levels are very good. She has no history of coronary artery disease. No prior history of RI or anginal symptoms there is no history of congenital heart disease. There is no history of congestive heart failure. She denies any palpitations or syncope. She has a history of asthma and COPD. She is ex-smoker quit smoking many years ago. She also has a history of morbid obesity. She seems to have some symptoms suggestive of sleep apnea, but has not had a sleep study done. She has a past history of DVT and pulmonary embolism. Which is very removed she says this was in the remote past when she was . There is no history of TIA or CVA. She has a history of diabetes mellitus type 2 [id number]. There is no history of thyroid disease. There is no history of anxiety or depression. She states she has a history of rheumatoid arthritis, and fibromyalgia. PAST SURGICAL HISTORY: She has a history of cholecystectomy she had bilateral knee meniscus repair. She had neck surgery. She has had anterior cervical fusion, and tonsillectomy. She is also had C-sections x4. FAMILY HISTORY: Is positive for premature artery disease in a brother, and CAD and other members of the family. ALLERGIES: She is allergic to cortisone and hydrocodone bitartrate. DISPOSITION: The patient is a full code. Her is her surrogate healthcare decision maker. REVIEW OF SYSTEMS:: CONSTITUTIONAL: Denies any fever chills or rigors. Complains of generalized fatigue and weakness. HEAD: Denies headaches or head injury. EYES: No history of amlodipine diplopia no history of amaurosis fugax. EARS: No history of hearing loss. No history of tinnitus. No recurrent ear infections. MOUTH: No history of altered taste sensation. No history of ulcers in the mouth. No bleeding from the gums. NOSE: No history of hayfever, no history of nosebleeds. No history of nasal polyps. THROAT: No history of odynophagia or dysphagia. No history of recurrent sore throats. SKIN: No history of pruritus. No history of yellowish discoloration of the skin. No history of psoriasis. NECK: Denies neck pain. Although she did state that with the chest pain traveled up and shot into her neck and back. No goiter. No swelling in the neck. LUNGS: She has a history of asthma and COPD. No history of acute exacerbation of asthma or wheezing. No history of cough or sputum production. No symptoms of upper or lower respiratory tract infection. Prior history of pulmonary embolism many years ago with no recurrence. She has symptoms suggestive of sleep apnea, but has not had a sleep study. There is no history of hemoptysis. No history of pleuritic chest pain. HEART: She has a history of hypertension. No history of coronary artery disease, RI or anginal symptoms. No history of congestive heart failure. No history of syncope. No history of sudden . No history of PND orthopnea or leg edema. NO HISTORY OF PALPITATIONS. METABOLIC: THE PATIENT LIPID LEVELS ARE EXCELLENT. SHE HAS A HISTORY OF OBESITY WHICH IS MORBID. THERE IS NO HISTORY OF GOUT. Muscular skeletal: She has a history of rheumatoid arthritis and there is no acute exacerbation of arthritic symptoms or joint swelling or joint pain or joint redness. GI: No history of GERD. She does have a small hiatal hernia as per history. There is no history of GI bleed. No history of fatty food intolerance. No history of jaundice. No history of cirrhosis or ascites. No history of altered bowel movements. ENDOCRINE: History of diabetes mellitus type 2 [id number]. No history of thyroid disease. No history of hirsutism. No history of excessive sweating. No history of heat or cold intolerance. No history of polydipsia polyuria. RENAL: No history of chronic kidney disease. No history of SYMPTOMS OF UTI. NO HISTORY OF HEMATURIA PYURIA OR DYSURIA. NO HISTORY OF RECURRENT UTIS. FIRE FIGHTER: No history of TIA or CVA. No history of headaches migraines or seizures. PSYCHIATRIC: No history of anxiety or depression. No history of suicidal ideation. No history of homicidal ideation. VASCULAR: Remote history of DVT when she was this was many years ago. No recurrence. No history of calf or buttock claudication. HEMATOLOGICAL: No history of anemia. No history of bleeding diathesis. No history of clotting disorders. PHYSICAL EXAMINATION: The patient is morbidly obese at present there is no chest pain or discomfort. There is some mild tenderness on pressing on the left front of the chest. And on the sternum. She is in no acute distress. She is well- groomed . Selected Entries 06/18/18 07:33 Temperature 97.8 F Temperature Oral Source Pulse Rate 86 Respiratory 18 Rate Blood Pressure 133/67 H Blood Pressure 89 Mean BP Location Right Arm BP Position Sitting O2 Sat by Pulse 97 Oximetry Oxygen Flow 1.50 Rate HEAD: Is atraumatic normocephalic. EYES: Pupils are equal round regular react to light accommodation. Extraocular movements are normal. There are no clinical pallor. There is no scleral icterus. EARS: Tympanic memories are intact. External auditory canals are clear NOSE: There is no deviated nasal septum. There is no inflammation nasal mucous membrane. MOUTH: Mucous membranes of the mouth are moist. Tongue is moist. There is no ulcers. There is no bleeding from the gums. THROAT: There is no exudates in the throat. There is no redness of the oropharynx. SKIN: There is no skin rashes or skin lesions.. There is no petechia or ecchymosis. NECK: Is supple. There is no JVD. Carotids are equal. There is no carotid bruits. There is no carotid delay. There is no lymphadenopathy. There is no goiter. There is no accessory muscle respiration use.. Trachea central. LUNGS: There is diminished air entry prolonged expiration, without any rhonchi rales or wheezing. On percussion there is hyperresonance. On palpation there is mild tenderness of the left front chest. HEART: S1-S2 is heard. There is no S3 gallop. There is no S4 gallop. There is systolic murmur left sternal border and the apex there is no rub. ABDOMEN: Is obese. Nontender. There is no hepatosplenomegaly. Bowel sounds are well heard. There is no tender areas masses. EXTREMITIES: Femorals are deep. Femorals are slightly diminished. There is no femoral bruits. Leg pulses are well felt. There is no pedal edema. There is no DVT or cellulitis. There is no calf tenderness. There is no cyanosis or clubbing. Capillary refill is normal. FIRE FIGHTER: The patient is conscious awake alert oriented x3 with no focal deficits. PSYCHIATRIC: The patient judgment insight are intact. Her affect is normal. Labs- Entire Visit 06/17/18 06/17/18 06/17/18 14:20 14:20 14:20 WBC 11.2 H RBC 4.84 Hgb 11.6 L Hct 36.5 MCV 75 L MCH 23.9 L MCHC 31.7 L RDW 18.5 H Plt Count 357 Seg Neutrophils % 69.8 Lymphocytes % 21.7 Monocytes % 5.1 Eosinophils % 2.7 Basophils % 0.7 Absolute Neutrophils 7.8 Absolute Lymphocytes 2.4 Absolute Monocytes 0.6 Absolute Eosinophils 0.3 Absolute Basophils 0.1 D-Dimer Sodium 138.8 Potassium 4.3 Chloride 98 Carbon Dioxide 31 H Anion Gap 10 BUN 17 Creatinine 0.71 Est GFR ( Amer) > 60 Est GFR (Non-Af Amer) > 60 Glucose 93 Hemoglobin A1c % Calcium 9.3 Magnesium Total Bilirubin 0.4 Direct Bilirubin 0.1 Neonat Total Bilirubin Not Reportable Neonat Direct Bilirubin Not Reportable Neonat Indirect Bili Not Reportable AST 24 ALT 24 Alkaline Phosphatase 122 Creatine Kinase 33 CK-MB (CK-2) < 0.22 Troponin I < 0.012 Total Protein 7.2 Albumin 4.1 Triglycerides Cholesterol LDL Cholesterol Direct VLDL Cholesterol HDL Cholesterol TSH Free T4 Free T3 pg/mL 06/17/18 06/17/18 06/17/18 14:20 14:20 18:11 WBC RBC Hgb Hct MCV MCH MCHC RDW Plt Count Seg Neutrophils % Lymphocytes % Monocytes % Eosinophils % Basophils % Absolute Neutrophils Absolute Lymphocytes Absolute Monocytes Absolute Eosinophils Absolute Basophils D-Dimer 0.45 Sodium Potassium Chloride Carbon Dioxide Anion Gap BUN Creatinine Est GFR ( Amer) Est GFR (Non-Af Amer) Glucose Hemoglobin A1c % Calcium Magnesium Total Bilirubin Direct Bilirubin Neonat Total Bilirubin Neonat Direct Bilirubin Neonat Indirect Bili AST ALT Alkaline Phosphatase Creatine Kinase CK-MB (CK-2) Troponin I < 0.012 Total Protein Albumin Triglycerides Cholesterol LDL Cholesterol Direct VLDL Cholesterol HDL Cholesterol TSH Free T4 1.02 Free T3 pg/mL 4.02 06/18/18 06/18/18 06/18/18 00:40 00:40 05:40 WBC RBC Hgb Hct MCV MCH MCHC RDW Plt Count Seg Neutrophils % Lymphocytes % Monocytes % Eosinophils % Basophils % Absolute Neutrophils Absolute Lymphocytes Absolute Monocytes Absolute Eosinophils Absolute Basophils D-Dimer Sodium Potassium Chloride Carbon Dioxide Anion Gap BUN Creatinine Est GFR ( Amer) Est GFR (Non-Af Amer) Glucose Hemoglobin A1c % Calcium Magnesium Total Bilirubin Direct Bilirubin Neonat Total Bilirubin Neonat Direct Bilirubin Neonat Indirect Bili AST ALT Alkaline Phosphatase Creatine Kinase 30 26 L CK-MB (CK-2) < 0.22 Troponin I < 0.012 Total Protein Albumin Triglycerides Cholesterol LDL Cholesterol Direct VLDL Cholesterol HDL Cholesterol TSH Free T4 Free T3 pg/mL 06/18/18 06/18/18 06/18/18 05:40 05:40 05:40 WBC 8.4 RBC 4.14 Hgb 10.1 L Hct 31.3 L MCV 76 L MCH 24.3 L MCHC 32.2 RDW 18.6 H Plt Count 279 Seg Neutrophils % Lymphocytes % Monocytes % Eosinophils % Basophils % Absolute Neutrophils Absolute Lymphocytes Absolute Monocytes Absolute Eosinophils Absolute Basophils D-Dimer Sodium 138.3 Potassium 3.9 Chloride 101 Carbon Dioxide 29 Anion Gap 8 BUN 19 Creatinine 0.67 Est GFR ( Amer) > 60 Est GFR (Non-Af Amer) > 60 Glucose 124 H Hemoglobin A1c % Calcium 8.7 Magnesium 2.1 Total Bilirubin Direct Bilirubin Neonat Total Bilirubin Neonat Direct Bilirubin Neonat Indirect Bili AST ALT Alkaline Phosphatase Creatine Kinase CK-MB (CK-2) < 0.22 Troponin I < 0.012 Total Protein Albumin Triglycerides 116 Cholesterol 133.78 LDL Cholesterol Direct 73 VLDL Cholesterol 23.0 HDL Cholesterol 54 TSH Free T4 Free T3 pg/mL 06/18/18 06/18/18 06/18/18 05:40 05:40 12:00 WBC RBC Hgb Hct MCV MCH MCHC RDW Plt Count Seg Neutrophils % Lymphocytes % Monocytes % Eosinophils % Basophils % Absolute Neutrophils Absolute Lymphocytes Absolute Monocytes Absolute Eosinophils Absolute Basophils D-Dimer Sodium Potassium Chloride Carbon Dioxide Anion Gap BUN Creatinine Est GFR ( Amer) Est GFR (Non-Af Amer) Glucose Hemoglobin A1c % 6.1 H Calcium Magnesium Total Bilirubin Direct Bilirubin Neonat Total Bilirubin Neonat Direct Bilirubin Neonat Indirect Bili AST ALT Alkaline Phosphatase Creatine Kinase 29 L CK-MB (CK-2) Troponin I Total Protein Albumin Triglycerides Cholesterol LDL Cholesterol Direct VLDL Cholesterol HDL Cholesterol TSH 1.16 Free T4 Free T3 pg/mL 06/18/18 12:00 WBC RBC Hgb Hct MCV MCH MCHC RDW Plt Count Seg Neutrophils % Lymphocytes % Monocytes % Eosinophils % Basophils % Absolute Neutrophils Absolute Lymphocytes Absolute Monocytes Absolute Eosinophils Absolute Basophils D-Dimer Sodium Potassium Chloride Carbon Dioxide Anion Gap BUN Creatinine Est GFR ( Amer) Est GFR (Non-Af Amer) Glucose Hemoglobin A1c % Calcium Magnesium Total Bilirubin Direct Bilirubin Neonat Total Bilirubin Neonat Direct Bilirubin Neonat Indirect Bili AST ALT Alkaline Phosphatase Creatine Kinase CK-MB (CK-2) < 0.22 Troponin I < 0.012 Total Protein Albumin Triglycerides Cholesterol LDL Cholesterol Direct VLDL Cholesterol HDL Cholesterol TSH Free T4 Free T3 pg/mL Chest X-Ray 06/17/18 14:44 IMPRESSION: NO ACUTE FINDINGS. The patient's 3 EKGs done serially shows sinus rhythm, LVH by voltage. No acute ischemia or RI. IMPRESSION/RECOMMENDATION: 1. Chest pain: Most likely noncardiac. But the patient does have multiple CAD risk factors namely age, hypertension, diabetes mellitus, and family history of premature coronary artery disease. Note this admission the patient's EKG does not show any acute ischemia or RI, and troponin/cardiac enzymes have been negative serially. Hence this supports a diagnosis of noncardiac etiology of the patient's chest pain. 2. Hypertension: Well controlled continue current medications. 3. Diabetes mellitus: Continue current antidiabetic regimen. 4. History of asthma: At present there is no acute exacerbation of asthma. 5. History of COPD: At present stable without any evidence of acute exacerbation or respiratory failure. 6. Prior history of DVT and pulmonary embolism. This was a bit very long time ago there is no recurrence. 7. Symptoms suggestive of sleep apnea: Recommend the patient have a sleep study done as an outpatient. 8. Morbid obesity: Once outpatient cardiac workup is done, would encourage the patient to increase exercise and watch her diet to lose weight. 9. Multiple CAD risk factors as mentioned earlier: In view of this would recommend that the patient be placed on metoprolol XL 25 mg p.o. daily, also start the patient on isosorbide mononitrate 30 extended release 30 mg p.o. daily. Continue the patient on aspirin. Continue all the current medication. Next 10. History of fibromyalgia probably this is the cause of the patient's symptoms of chest pain this admission. 11. History of rheumatoid arthritis: Appears to be stable. Medications reviewed. New medications added. Management plan discussed with the attending physician on the case. Would recommend discharge the patient home and would will get the patient to follow-up with me in the office and get an outpatient IV Lexiscan Cardiolite stress test and a echocardiogram as an outpatient. Note that the patient has excellent lipid levels.. 60 minutes spent on this patient more than 50% time spent in direct patient care. The patient has my cell phone number, and knows to call me if she has any problems.
--- NOTE | 2018-06-18 20:28 | PDOC DISCHARGE SUMMARY ---
General - Admit/Disc Date/PCP Admission Date/Primary Care Provider: 06/17/18 17:37 Discharge Date: 06/18/18 - Discharge Diagnosis (1) Chest pain Is this a current diagnosis for this admission?: Yes Summary: The patient had a negative series of troponins. EKG was relatively unremar kable. The patient was seen by and will follow up with cardiology as an outpatient first thing next week. (2) Chronic pain Is this a current diagnosis for this admission?: Yes Summary: Patient does have chronic pain. She stated that she was out of her pain medications. She reports an appointment at the pain clinic on Wednesday. I did give her a prescription for a small amount of oxycodone 5 mg tablets. (3) Hypertension Is this a current diagnosis for this admission?: Yes Summary: The patient will be on metoprolol 25 mg daily and Imdur 60 mg daily. I told her to start taking an aspirin a day. She would likely be started on statin therapy as an outpatient. She will follow-up with cardiology for the chest pain as well as management of hypertension and possible hyperlipidemia. (4) Diabetes mellitus type 2 in obese Is this a current diagnosis for this admission?: Yes Summary: Excellent control his hemoglobin A1c was 6.1. Continue current regimen including diet and hopefully exercise. Also with her underlying hypertension and MUSTAPHA inhibitor as well as a statin should be initiated. (5) Morbid obesity with BMI of 40.0-44.9, adult Is this a current diagnosis for this admission?: Yes Summary: Significant risk factor for coronary disease. She also has diabetes. Her hemoglobin A1c was 6.1 which is very good. She should begin an exercise program and dietary modifications for weight loss. - Additional Information Resuscitation Status: Full Code Discharge Diet: Cardiac Discharge Activity: Activity As Tolerated, Balance Activity w/Rest Prescriptions: Isosorbide Mononitrate [Imdur 60 mg Tablet.er] 30 mg PO DAILY 30 Days #30 tab.er.24h Metoprolol Succinate [Toprol Xl 25 mg Tab.sr] 25 mg PO DAILY 30 Days #30 tab.sr.24h Nitroglycerin [Nitrostat 0.4 mg (1/150 Gr) Tabs 25/Bottle] 1 tab SL Q5MP PRN 30 Days #1 bottle PRN Reason: Oxycodone HCl [Oxy-Ir 5 mg Tablet] 5 mg PO Q6HP PRN 3 Days #12 tablet PRN Reason: For Pain Home Medications: Bupropion HCl [Bupropion Xl] 150 mg PO DAILY 04/17/17 Escitalopram Oxalate [Lexapro] 40 mg PO DAILY 04/17/17 Gabapentin 600 mg PO Q8 04/17/17 Lorazepam [Ativan 0.5 mg Tablet] 1 mg PO DAILYP PRN 04/17/17 Aspirin [Ecotrin 81 mg EC Tablet] 81 mg PO DAILY tabec 06/18/18 Isosorbide Mononitrate [Imdur 60 mg Tablet.er] 30 mg PO DAILY 30 Days #30 tab.er.24h 06/18/18 Metoprolol Succinate [Toprol Xl 25 mg Tab.sr] 25 mg PO DAILY 30 Days #30 tab.sr.24h 06/18/18 Nitroglycerin [Nitrostat 0.4 mg (1/150 Gr) Tabs 25/Bottle] 1 tab SL Q5MP PRN 30 Days #1 bottle 06/18/18 Oxycodone HCl [Oxy-Ir 5 mg Tablet] 5 mg PO Q6HP PRN 3 Days #12 tablet 06/18/18 History of Present Illness Patient complains of: Chest pain History of Present Illness: BECKA GOMES is a 57 year old female The patient was shopping in [facility] earlier in the day. She has been having sub sternal chest discomfort for the last week. She was not walking as she uses a motorized cart. None were normal was called. On scene they gave her sublingual nitroglycerin. Her pain decreased with each dose. She has had multiple episodes like this in the past but this was the worst pain. EKG and initial troponin were negative. The patient was referred to the hospitalist service for admission to rule out acute cardiac event. Hospital Course Hospital Course: Benign hospital course. The patient's serial cardiac enzymes are negative. She does have chronic pain in addition to hypertension and a history of pulmonary embolus. She has COPD, diabetes mellitus type 2 and morbid obesity. She also carries diagnosis of depression and generalized anxiety disorder. Troponins were negative. The patient was seen by cardiology. There are no stress test available on the weekend and the patient is in fact stable for discharge home with follow-up per cardiology first thing next week. I instructed her to take an aspirin every day. She was started on indoor 60 mg daily as well as metoprolol extended release 25 mg daily. She states that she is out of her pain medications. She has an appointment with the pain care clinic on Wednesday. Physical Exam Vital Signs: Temp Pulse Resp BP Pulse Ox 97.9 F 80 20 144/71 H 94 06/18/18 17:39 06/18/18 17:39 06/18/18 17:39 06/18/18 15:17 06/18/18 17:39 Intake & Output 06/17/18 06/18/18 06/19/18 06:59 06:59 07:59 Intake Total 1000 Balance 1000 Weight 123.2 kg General appearance: PRESENT: no acute distress, morbidly obese, well-developed Head exam: PRESENT: normocephalic Respiratory exam: PRESENT: clear to auscultation raómn, symmetrical, unlabored. ABSENT: rales, rhonchi, wheezes Cardiovascular exam: PRESENT: RRR, +S1, +S2 GI/Abdominal exam: PRESENT: distended - Protuberant abdomen, normal bowel sounds, soft. ABSENT: tenderness Rectal exam: PRESENT: deferred Gentrourinary exam: ABSENT: indwelling catheter Neurological exam: PRESENT: alert, awake, oriented to person, oriented to place, oriented to time, oriented to situation Psychiatric exam: PRESENT: appropriate affect, normal mood. ABSENT: agitated, anxious Results Laboratory Results: 06/18/18 05:40 06/18/18 05:40 06/17/18 06/18/18 06/18/18 14:20 05:40 05:40 WBC 8.4 RBC 4.14 Hgb 10.1 L Hct 31.3 L MCV 76 L MCH 24.3 L MCHC 32.2 RDW 18.6 H Plt Count 279 Sodium 138.3 Potassium 3.9 Chloride 101 Carbon Dioxide 29 Anion Gap 8 BUN 19 Creatinine 0.67 Est GFR ( Amer) > 60 Est GFR (Non-Af Amer) > 60 Glucose 124 H Calcium 8.7 Magnesium 2.1 Triglycerides 116 Cholesterol 133.78 LDL Cholesterol Direct 73 VLDL Cholesterol 23.0 HDL Cholesterol 54 TSH Free T4 1.02 Free T3 pg/mL 4.02 06/18/18 05:40 WBC RBC Hgb Hct MCV MCH MCHC RDW Plt Count Sodium Potassium Chloride Carbon Dioxide Anion Gap BUN Creatinine Est GFR ( Amer) Est GFR (Non-Af Amer) Glucose Calcium Magnesium Triglycerides Cholesterol LDL Cholesterol Direct VLDL Cholesterol HDL Cholesterol TSH 1.16 Free T4 Free T3 pg/mL 06/17/18 06/17/18 06/17/18 14:20 14:20 18:11 Creatine Kinase 33 CK-MB (CK-2) < 0.22 Troponin I < 0.012 < 0.012 06/18/18 06/18/18 06/18/18 00:40 00:40 05:40 Creatine Kinase 30 26 L CK-MB (CK-2) < 0.22 Troponin I < 0.012 06/18/18 06/18/18 06/18/18 05:40 12:00 12:00 Creatine Kinase 29 L CK-MB (CK-2) < 0.22 < 0.22 Troponin I < 0.012 < 0.012 Impressions: Chest X-Ray 06/17/18 14:44 IMPRESSION: NO ACUTE FINDINGS. Qualifiers - * PATIENT BEING DISCHARGED WITH ANY OF THE FOLLOWING DIAGNOSIS: No Plan Discharge Plan: Follow-up with cardiology. She should also follow-up with her primary care lakia robbins. Time Spent: Greater than 30 Minutes
[2018-06-19] MEDS ORDERED: ASPIRIN 81 MG TABLET, ENT COATED PO SCH (10:00)
== END 2018-06-18 18:02 | disposition home or self-care (01) ==
LOC: ER 14:41 → INTOOBSV 17:37 → EH 17:37 → 3N 23:04
PROVIDERS: ADMIT Emergency Medicine; ATTEND Emergency Medicine
DX: R07.9 Chest pain, unspecified (principal); G89.29 Other chronic pain; I10 Essential (primary) hypertension; E11.9 Type 2 diabetes mellitus without complications; E66.01 Morbid (severe) obesity due to excess calories; R06.02 Shortness of breath; M06.9 Rheumatoid arthritis, unspecified; R53.83 Other fatigue; R53.1 Weakness; K44.9 Diaphragmatic hernia without obstruction or gangrene; R01.1 Cardiac murmur, unspecified; J44.9 Chronic obstructive pulmonary disease, unspecified; K21.9 Gastro-esophageal reflux disease without esophagitis; M79.7 Fibromyalgia; F41.1 Generalized anxiety disorder; F32.9 Major depressive disorder, single episode, unspecified; Z73.3 Stress, not elsewhere classified; Z68.41 Body mass index [BMI] 40.0-44.9, adult; Z79.899 Other long term (current) drug therapy; Z79.82 Long term (current) use of aspirin; Z87.891 Personal history of nicotine dependence; Z86.718 Personal history of other venous thrombosis and embolism; Z90.49 Acquired absence of other specified parts of digestive tract; Z82.49 Family history of ischemic heart disease and other diseases of the circulatory system; Z86.73 Personal history of transient ischemic attack (TIA), and cerebral infarction without residual deficits; Z87.11 Personal history of peptic ulcer disease
CPT/HCPCS: 36415; 71045; 80048; 80053; 80061; 82550; 82553; 83036; 83735; 84439; 84443; 84481; 84484; 85025; 85027; 85379; 93005; 93010; 96374; 99285; G0378; J1644; J2270; J3010; J3360; J3490; J7030; S0164

== ENCOUNTER 2018-07-04 13:39 | Emergency (ER) | payer MEDICARE, MEDICAID ==
[2018-07-04] MEDS ORDERED: DIPHENHYDRAMINE HCL 50 MG/ML VIAL IV ONE (15:28)
--- NOTE | 2018-07-04 15:37 | ER Document Report ---
ED Medical Screen (RME) - General Chief Complaint: Rash Stated Complaint: RASH Time Seen by Provider: 07/04/18 15:28 Notes: 57-year-old female with COPD recently discharged from this hospital for chest pain workup presents for a systemic rash and intense itching that started about a week ago but is gotten intensely worse over the last 2 days. She states she has taken Benadryl and it did not help. She states she was recently placed on isosorbide mononitrate and metoprolol but she stopped taking the isosorbide 3 days ago. She states there is been no changes with laundry soap. She has been staying in a hotel recently but states the symptoms started before that. She states the itching is intense and she is actively scratching scabs off causing bleeding. She denies any current chest pain or shortness of breath. She denies the feeling of her throat closing up. I have greeted and performed a rapid initial assessment of this patient. A comprehensive ED assessment and evaluation of the patient, analysis of test results and completion of medical decision making process will be conducted by an additional ED providers. TRAVEL OUTSIDE OF THE [place] IN LAST 30 DAYS: Yes - Related Data Allergies/Adverse Reactions: cortisone [Cortisone] Allergy (Verified 07/04/18 13:47) hydrocodone bitartrate [From Vicodin] Allergy (Verified 07/04/18 13:47) Past Medical History - Past Medical History Cardiac Medical History: Reports: Hx DVT, Hx Hypertension, Hx Pulmonary Embolism Denies: Hx Atrial Fibrillation, Hx Congestive Heart Failure, Hx Coronary Artery Disease, Hx Heart Attack, Hx Hypercholesterolemia, Hx Peripheral Vascular Disease, Hx Heart Murmur Pulmonary Medical History: Reports: Hx Asthma, Hx COPD Denies: Hx Tuberculosis Neurological Medical History: Reports: Hx Cerebrovascular Accident - June 2016. Denies: Hx Seizures Endocrine Medical History: Reports: Hx Diabetes Mellitus Type 2. Denies: Hx Diabetes Mellitus Type 1, Hx Hyperthyroidism, Hx Hypothyroidism Renal/ Medical History: Denies: Hx Peritoneal Dialysis GI Medical History: Reports: Hx Ulcer. Denies: Hx Cirrhosis, Hx Hepatitis Musculoskeltal Medical History: Reports Hx Arthritis - RA, Reports Hx Fibromyalgia Skin Medical History: Denies Hx Eczema, Denies Hx Psoriasis Psychiatric Medical History: Reports: Hx Anxiety, Hx Depression Infectious Medical History: Denies: Hx Hepatitis Past Surgical History: Reports: Hx Section - X4, Hx Cholecystectomy - 2011, Hx Orthopedic Surgery - bilat knee meniscus repair, neck surgery [facility], Hx Tonsillectomy - 1968. Denies: Hx Appendectomy, Hx Bowel Surgery, Hx Coronary Artery Bypass Graft, Hx Gastric Bypass Surgery, Hx Herniorrhaphy, Hx Hysterectomy, Hx Mastectomy, Hx Pacemaker, Hx Tubal Ligation - Immunizations Hx Diphtheria, Pertussis, Tetanus Vaccination: Yes History of Influenza Vaccine for 01/2017 - 06/2017 Season: Yes Influenza Administration Date for 01/2017 - 06/2017 Season: 01/10/17 Physical Exam - Vital signs Vitals: Temp Pulse Resp BP Pulse Ox 98 F 115 H 22 H 161/108 H 100 07/04/18 13:47 07/04/18 13:47 07/04/18 13:47 07/04/18 13:47 07/04/18 13:47 - Skin Skin Temperature: Warm Skin Moisture: Dry Skin irregularity: Rash - Diffuse scabbing with open wounds from scratching Location of irregularity: Generalized Character of irregularity: Erythematous Course - Vital Signs Vital signs: Temp Pulse Resp BP Pulse Ox 98 F 115 H 22 H 161/108 H 100 07/04/18 13:47 07/04/18 13:47 07/04/18 13:47 07/04/18 13:47 07/04/18 13:47
[2018-07-04] MEDS ORDERED: HYDROXYZINE HCL 10 MG TABLET PO ONE (16:21)
--- NOTE | 2018-07-04 16:43 | ER Document Report ---
ED General - General Chief Complaint: Rash Stated Complaint: RASH Time Seen by Provider: 07/04/18 15:28 Primary Care Provider: JONATHAN ENGLISH MD [ACTIVE STAFF] - Follow up tomorrow (cardiology ) Notes: Patient is a 57-year-old female that presents to the emergency department for chief complaint of itching and rash. Patient states that she developed a rash just under a week ago, and has been itching constantly since then, is on her arms, legs and feet and hands. She thought maybe was a new medication she was prescribed, which is metoprolol and isosorbide, after being in the hospital for chest pain evaluation. She stopped these medications about 3 days ago, however her itching and rash has persisted without resolution. She denies any fevers, chills, night sweats, chest pain, shortness of breath, difficulty breathing associated with this. She states that she was sleeping on a couch, was concerned about possible bedbugs with a look, and could not find any, she was then staying in a hotel recently in a new setting, but her symptoms persisted so she eventually decided come to the emergency department. She did try taking Benadryl without improvement. Past Medical History: Hypertension, COPD, fibromyalgia, history of CVA Past Surgical History: Cholecystectomy, carpal tunnel release, neck surgery Social History: Former smoker, denies alcohol or drug use. Family History: Reviewed and noncontributory for presenting illness Allergies: Reviewed, see documented allergy list. REVIEW OF SYSTEMS: Other than noted above, the 12 point review of systems was reviewed with the patient and were negative, all pertinent findings are included in the HPI. PHYSICAL EXAMINATION: Vital signs reviewed, nursing noted reviewed. GENERAL: Well-appearing, well-nourished and in no acute distress. HEAD: Atraumatic, normocephalic. EYES: Eyes appear normal, extraocular movements intact, sclera anicteric, conjunctiva are normal. ENT: nares patent, oropharynx clear without exudates. Moist mucous membranes. NECK: Normal range of motion, supple without lymphadenopathy LUNGS: Breath sounds clear to auscultation bilaterally and equal. No wheezes rales or rhonchi. HEART: Regular rate and rhythm without murmurs ABDOMEN: Soft, obese, nontender, normoactive bowel sounds. No rebound, guarding, or rigidity. No masses appreciated. EXTREMITIES: Nontender, good range of motion, no pitting or edema. NEUROLOGICAL: No focal neurological deficits. Moves all extremities spontaneously Motor and sensory grossly intact on exam. PSYCH: Normal mood, normal affect. SKIN: Warm, Dry, normal turgor, multiple excoriations noted on the forearms bilaterally, legs and feet bilaterally, and lower back, the upper back is spared as well as the neck. No urticaria, or maculopapule rash appreciated, no cellulitis appreciated. TRAVEL OUTSIDE OF THE [place] IN LAST 30 DAYS: Yes - Related Data Allergies/Adverse Reactions: cortisone [Cortisone] Allergy (Verified 07/04/18 13:47) hydrocodone bitartrate [From Vicodin] Allergy (Verified 07/04/18 13:47) Past Medical History - Social History Smoking Status: Former Smoker Family History: DM, Hypertension, Malignancy - Past Medical History Cardiac Medical History: Reports: Hx DVT, Hx Hypertension, Hx Pulmonary Embolism Denies: Hx Atrial Fibrillation, Hx Congestive Heart Failure, Hx Coronary Artery Disease, Hx Heart Attack, Hx Hypercholesterolemia, Hx Peripheral Vascular Disease, Hx Heart Murmur Pulmonary Medical History: Reports: Hx Asthma, Hx COPD Denies: Hx Tuberculosis Neurological Medical History: Reports: Hx Cerebrovascular Accident - June 2016. Denies: Hx Seizures Endocrine Medical History: Reports: Hx Diabetes Mellitus Type 2. Denies: Hx Diabetes Mellitus Type 1, Hx Hyperthyroidism, Hx Hypothyroidism Renal/ Medical History: Denies: Hx Peritoneal Dialysis GI Medical History: Reports: Hx Ulcer. Denies: Hx Cirrhosis, Hx Hepatitis Musculoskeletal Medical History: Reports Hx Arthritis - RA, Reports Hx Fibromyalgia Skin Medical History: Denies Hx Eczema, Denies Hx Psoriasis Psychiatric Medical History: Reports: Hx Anxiety, Hx Depression Infectious Medical History: Denies: Hx Hepatitis Past Surgical History: Reports: Hx Section - X4, Hx Cholecystectomy - 2011, Hx Orthopedic Surgery - bilat knee meniscus repair, neck surgery [facility], Hx Tonsillectomy - 1968. Denies: Hx Appendectomy, Hx Bowel Surgery, Hx Coronary Artery Bypass Graft, Hx Gastric Bypass Surgery, Hx Herniorrhaphy, Hx Hysterectomy, Hx Mastectomy, Hx Pacemaker, Hx Tubal Ligation - Immunizations Hx Diphtheria, Pertussis, Tetanus Vaccination: Yes Physical Exam - Vital signs Vitals: Temp Pulse Resp BP Pulse Ox 98 F 115 H 22 H 161/108 H 100 07/04/18 13:47 07/04/18 13:47 07/04/18 13:47 07/04/18 13:47 07/04/18 13:47 Course - Re-evaluation Re-evalutation: Patient seen and examined vital signs reviewed. Patient was evaluated and treated as appropriate for the patient's presenting symptoms and complaint, with consideration of any critical or life threatening conditions that may be associated with their obtained history and exam as noted above. Patient was treated with Atarax in the emergency department The patient was re-evaluated and was stable Evaluation was most consistent with rash, nonspecific, and excoriations from excessive scratching, patient advised to wear gloves, will prescribe permethrin cream as it is possible she could have been exposed to bedbugs versus scabies, and also a corticosteroid to help with her itching. Also given a prescription for Atarax advised to follow-up with cardiology to discuss the medications I do not believe this patient is having an acute medication reaction she stopped his medications 3 days ago and have persistent itching, possible neurodermatitis, advised to wear gloves as noted above patient agreeable to plan of care Plan of care was discussed with the patient at this point, after careful consideration I feel that that patient can be discharged from the emergency department, the patient was educated treatments and reasons to return to the emergency department based on their presumed diagnosis as noted above, they were advised to followup with a primary care physician in 2-3 days. Patient was agreeable to plan of care. *Note is created using voice recognition software and may contain spelling, syntax or grammatical errors. - Vital Signs Vital signs: Temp Pulse Resp BP Pulse Ox 97.7 F 99 16 163/92 H 100 07/04/18 16:45 07/04/18 16:45 07/04/18 16:45 07/04/18 16:45 07/04/18 16:45 Discharge - Discharge Clinical Impression: Rash Condition: Stable Disposition: HOME, SELF-CARE Instructions: Acute Allergic Reaction ([facility]) Additional Instructions: Please take all medications as prescribed, you can complete the course of steroids, please use the permethrin cream as directed, and follow-up with your primary care I also when she to follow-up with the typing section chief Dr. Patten, to discuss the medications prescribed as well as setting up a follow-up appointment for stress test. Prescriptions: Hydroxyzine HCl [Atarax 50 mg Tablet] 50 mg PO TID PRN #30 tablet PRN Reason: Itching RX: Permethrin [Elimite] 60 gm TP ONCE #1 tube RX: Prednisone [Deltasone 10 mg Tablet] 40 mg PO DAILY #20 tablet Referrals: JONATHAN ENGLISH MD [ACTIVE STAFF] - Follow up tomorrow (cardiology )
[2018-07-04 16:46] VITALS: BP 163/92
== END 2018-07-04 16:53 | disposition home or self-care (01) ==
LOC: ER 13:39
DX: R21 Rash and other nonspecific skin eruption (principal); Z79.899 Other long term (current) drug therapy; J44.9 Chronic obstructive pulmonary disease, unspecified; Z87.891 Personal history of nicotine dependence; E11.9 Type 2 diabetes mellitus without complications
CPT/HCPCS: 99283; A9270

== ENCOUNTER → 2018-11-01 | Outpatient (CLI) | payer MEDICARE, MEDICAID ==
[2018-11-01 11:01] LABS: ALBUMIN 3.8 g/dL (3.5-5.0); ANION GAP 8 (5-19); BLOOD UREA NITROGEN 17 mg/dL (7-20); CALCIUM 9.1 mg/dL (8.4-10.2); CARBON DIOXIDE 28 mmol/L (22-30); CHLORIDE 106 mmol/L (98-107); GLUCOSE 144 mg/dL (75-110); PHOSPHORUS 2.6 mg/dL (2.5-4.5); POTASSIUM 4.4 mmol/L (3.6-5.0)
--- NOTE | 2018-11-01 12:27 | RADIOLOGY REPORT (SQ) ---
EXAM DESCRIPTION: CT LUNG CANCER SCREENING COMPLETED DATE/TIME: 11/01/2018 10:32 am REASON FOR STUDY: PERSONAL HX OF NICOTINE DEPENDENCE (Z87.891) Z87.891 PERSONAL HISTORY OF NICOTINE DEPENDENCE Has the patient had a Chest CT scan within the past year? Was the patient offered tobacco cessation counseling? Was the patient engaged in shared decision making for this test? Does the patient have signs or symptoms of Lung Cancer? Is the patient a smoker? How many pack years? How many years since quitting smoking? Patients age: COMPARISON: None. TECHNIQUE: Low Dose CT scan performed of the chest without intravenous contrast for purposes of scre ening for lung cancer. Images reviewed with lung, soft tissue and bone windows. Reconstructed coron al and sagittal MPR images reviewed. All images stored on PACS. All CT scanners at this facility use dose modulation, iterative reconstruction, and/or weight based d osing when appropriate to reduce radiation dose to as low as reasonably achievable (ALARA). [facility]: Dose Right [facility]: CareDose [facility]: Dose Right [facility]: Teradose 4D [facility]: [employer] RADIATION DOSE: mGy. . LIMITATIONS: Habitus. FINDINGS: LUNGS AND PLEURA: No masses or nodules. No pleural effusions or calcifications. No pne umothorax. HILAR AND MEDIASTINAL STRUCTURES: No identified masses. No abnormal nodes. HEART AND VASCULAR STRUCTURES: No aortic aneurysm. No pericardial effusion. No cardiac devices. CORONARY ARTERY CALCIFICATIONS: No significant calcifications. UPPER ABDOMEN, THYROID, BONES, OTHER SOFT TISSUES: No significant findings. IMPRESSION: NO SIGNIFICANT FINDING IN THE LUNGS ON NON-CONTRASTED CHEST CT. NO OTHER CLINICALLY SIGNIFICANT/POTENTIALLY CLINICALLY SIGNIFICANT FINDINGS LUNGRADS: LUNGRADS: 1 NEGATIVE. NO NODULES, OR DEFINITELY BENIGN NODULES MODIFIER: NONE RECOMMENDATION: Continue annual screening with LDCT in 12 months. COMMENT: CRITERIA: No lung nodules. Nodules with specific calcifications: Complete, central, popcorn, concentric rings and fat containin g nodules. TECHNICAL DOCUMENTATION: JOB ID: [id number] Quality ID # [id number]: Final reports with documentation of one or more dose reduction techniques (e.g., Au tomated exposure control, adjustment of the mA and/or kV according to patient size, use of iterative reconstruction technique) 2010 [facility] Reading location - IP/workstation name: [email or web address] [id number]
== END ==
LOC: RAD 10:00
PROVIDERS: ATTEND Internal Medicine Pulmonary Disease
DX: Z12.2 Encounter for screening for malignant neoplasm of respiratory organs (principal); Z87.891 Personal history of nicotine dependence
CPT/HCPCS: 80069; 36415; G0297

== ENCOUNTER 2018-11-03 11:42 | Observation (INO) | payer MEDICARE, MEDICAID ==
--- NOTE | 2018-11-03 12:28 | ER Document Report ---
ED Medical Screen (RME) - General Chief Complaint: Slurred Speech Stated Complaint: WEAKNESS Time Seen by Provider: 11/03/18 12:22 Primary Care Provider: MATT STRICKLAND MD [Primary Care Provider] - Follow up as needed Notes: Patient is a 57-year-old female presents to the emergency department for "not feeling right." Patient states yesterday afternoon she started feeling generalized weakness and blurred vision. States she feels as though her speech is slurred. Patient does appear to be aphasic in triage. Patient is also squinting with her left eye, denies photophobia and is unable to tell me why she is squinting with the left eye. Patient just keeps stating "I am not sure, I just do not feel right." GENERAL: Alert, interacts well. HEAD: Normocephalic, atraumatic. NEUROLOGICAL: Alert and oriented x3. Aphasic I have greeted and performed a rapid initial assessment of this patient. A comprehensive ED assessment and evaluation of the patient, analysis of test results and completion of the medical decision making process will be conducted by additional ED providers. I have specifically instructed the patient or family members with the patient to immediately return to any nursing staff should anything change in the patient's condition or with their chief complaint. This medical record was dictated with voice recognizing software. There may be grammatical, syntax errors that are unintended. TRAVEL OUTSIDE OF THE [place] IN LAST 30 DAYS: No - Related Data Allergies/Adverse Reactions: cortisone [Cortisone] Allergy (Verified 07/04/18 13:47) hydrocodone bitartrate [From Vicodin] Allergy (Verified 07/04/18 13:47) Past Medical History - Past Medical History Cardiac Medical History: Reports: Hx DVT, Hx Hypertension, Hx Pulmonary Embolism Denies: Hx Atrial Fibrillation, Hx Congestive Heart Failure, Hx Coronary Artery Disease, Hx Heart Attack, Hx Hypercholesterolemia, Hx Peripheral Vascular Disease, Hx Heart Murmur Pulmonary Medical History: Reports: Hx Asthma, Hx COPD Denies: Hx Tuberculosis Neurological Medical History: Reports: Hx Cerebrovascular Accident - June 2016. Denies: Hx Seizures Endocrine Medical History: Reports: Hx Diabetes Mellitus Type 2. Denies: Hx Diabetes Mellitus Type 1, Hx Hyperthyroidism, Hx Hypothyroidism Renal/ Medical History: Denies: Hx Peritoneal Dialysis GI Medical History: Reports: Hx Ulcer. Denies: Hx Cirrhosis, Hx Hepatitis Musculoskeltal Medical History: Reports Hx Arthritis - RA, Reports Hx Fibromyalgia Skin Medical History: Denies Hx Eczema, Denies Hx Psoriasis Psychiatric Medical History: Reports: Hx Anxiety, Hx Depression Infectious Medical History: Denies: Hx Hepatitis Past Surgical History: Reports: Hx Section - X4, Hx Cholecystectomy - 2011, Hx Orthopedic Surgery - bilat knee meniscus repair, neck surgery [facility], Hx Tonsillectomy - 1968. Denies: Hx Appendectomy, Hx Bowel Surgery, Hx Coronary Artery Bypass Graft, Hx Gastric Bypass Surgery, Hx Herniorrhaphy, Hx Hysterectomy, Hx Mastectomy, Hx Pacemaker, Hx Tubal Ligation - Immunizations Hx Diphtheria, Pertussis, Tetanus Vaccination: Yes History of Influenza Vaccine for 01/2017 - 06/2017 Season: Yes Influenza Administration Date for 01/2017 - 06/2017 Season: 01/10/17 Physical Exam - Vital signs Vitals: Temp Pulse Resp BP Pulse Ox 98.2 F 79 18 189/90 H 97 11/03/18 11:51 11/03/18 11:51 11/03/18 11:51 11/03/18 11:51 11/03/18 11:51 Course - Vital Signs Vital signs: Temp Pulse Resp BP Pulse Ox 98.2 F 79 18 189/90 H 97 11/03/18 11:51 11/03/18 11:51 11/03/18 11:51 11/03/18 11:51 11/03/18 11:51 Doctor's Discharge - Discharge Referrals: MATT STRICKLAND MD [Primary Care Provider] - Follow up as needed
--- NOTE | 2018-11-03 12:52 | RADIOLOGY REPORT (SQ) ---
EXAM DESCRIPTION: CT HEAD WITHOUT COMPLETED DATE/TIME: 11/03/2018 12:42 pm REASON FOR STUDY: aphasia COMPARISON: 01/18/2017. TECHNIQUE: Axial images acquired through the brain without intravenous contrast. Images reviewed wi th bone, brain and subdural windows. Additional sagittal and coronal reconstructions were generated. Images stored on PACS. All CT scanners at this facility use dose modulation, iterative reconstruction, and/or weight based d osing when appropriate to reduce radiation dose to as low as reasonably achievable (ALARA). [facility]: Dose Right [facility]: CareDose [facility]: Dose Right [facility]: Teradose 4D [facility]: [employer] RADIATION DOSE: CT Rad equipment meets quality standard of care and radiation dose reduction techniq ues were employed. CTDIvol: 53.2 mGy. DLP: 991 mGy-cm. mGy. LIMITATIONS: None. FINDINGS: VENTRICLES: Normal size and contour. CEREBRUM: No masses. No hemorrhage. No midline shift. No evidence for acute infarction. Normal gra y/white matter differentiation. No areas of low density in the white matter. CEREBELLUM: No masses. No hemorrhage. No alteration of density. No evidence for acute infarction. EXTRAAXIAL SPACES: No fluid collections. No masses. ORBITS AND GLOBE: No intra- or extraconal masses. Normal contour of globe without masses. CALVARIUM: No fracture. PARANASAL SINUSES: No fluid or mucosal thickening. SOFT TISSUES: No mass or hematoma. OTHER: No other significant finding. IMPRESSION: NORMAL BRAIN CT WITHOUT CONTRAST. EVIDENCE OF ACUTE STROKE: NO. COMMENT: Quality ID # 436: Final reports with documentation of one or more dose reduction techniques (e.g., Automated exposure control, adjustment of the mA and/or kV according to patient size, use of iterative reconstruction technique) TECHNICAL DOCUMENTATION: JOB ID: [id number] [employer]- All Rights Reserved Reading location - IP/workstation name: [email or web address]
--- NOTE | 2018-11-03 12:55 | RADIOLOGY REPORT (SQ) ---
EXAM DESCRIPTION: CHEST SINGLE VIEW COMPLETED DATE/TIME: 11/03/2018 12:46 pm REASON FOR STUDY: shoulder pain COMPARISON: 06/17/2018 and 09/30/2015. EXAM PARAMETERS: NUMBER OF VIEWS: One view. TECHNIQUE: Single frontal radiographic view of the chest acquired. RADIATION DOSE: NA LIMITATIONS: None. FINDINGS: LUNGS AND PLEURA: No opacities, masses or pneumothorax. No pleural effusion. MEDIASTINUM AND HILAR STRUCTURES: No masses. Contour normal. HEART AND VASCULAR STRUCTURES: Heart normal in size. Normal vasculature. BONES: No acute findings. Stable benign-appearing sclerotic lesion in the left humeral head. HARDWARE: Hardware in the cervical spine. OTHER: No other significant finding. IMPRESSION: NO ACUTE RADIOGRAPHIC FINDING IN THE CHEST. TECHNICAL DOCUMENTATION: JOB ID: [id number] [employer]- All Rights Reserved Reading location - IP/workstation name: [email or web address]
[2018-11-03 13:31] LABS: INTERNATIONAL RATION (INR) 0.91; PROTHROMBIN TIME 12.2 SEC (11.4-15.4)
[2018-11-03 13:35] LABS: ABSOLUTE BASOPHILS # (AUTO) 0.1 10^3/uL (0.0-0.2); ABSOLUTE EOSINOPHILS # (AUTO) 0.3 10^3/uL (0.0-0.6); ABSOLUTE LYMPHOCYTES (AUTO) 1.6 10^3/uL (0.5-4.7); ABSOLUTE MONOCYTES (AUTO) 0.5 10^3/uL (0.1-1.4); ABSOLUTE NEUT (AUTO) 7.7 10^3/uL (1.7-8.2); BASOPHILS % (AUTO) 0.7 % (0-2); EOSINOPHILS % (AUTO) 2.8 % (0-6); HEMATOCRIT 37.9 % (36.0-47.0); LYMPHOCYTES % (AUTO) 15.8 % (13-45); MEAN CORPUSCULAR HEMOGLOBIN 23.2 pg (27.0-33.4); MEAN CORPUSCULAR HGB CONC 31.7 g/dL (32.0-36.0); MEAN CORPUSCULAR VOLUME 73 fl (80-97); MONOCYTES % (AUTO) 4.9 % (3-13); PLATELET COUNT 344 10^3/uL (150-450); RED BLOOD COUNT 5.19 10^6/uL (3.72-5.28); RED CELL DISTRIBUTION WIDTH 19.7 % (11.5-14.0); SEGMENTED NEUTROPHILS % (AUTO) 75.8 % (42-78); TOTAL CELLS COUNTED % (AUTO) 100 %; WHITE BLOOD COUNT 10.2 10^3/uL (4.0-10.5)
[2018-11-03 13:44] LABS: ALANINE AMINOTRANSFERASE 24 U/L (9-52); ALBUMIN 4.1 g/dL (3.5-5.0); ALKALINE PHOSPHATASE 121 U/L (38-126); ANION GAP 9 (5-19); ASPARTATE AMINO TRANSFERASE 18 U/L (14-36); BILIRUBIN,DIRECT 0.2 mg/dL (0.0-0.4); BILIRUBIN,TOTAL 0.4 mg/dL (0.2-1.3); BLOOD UREA NITROGEN 13 mg/dL (7-20); CALCIUM 9.2 mg/dL (8.4-10.2); CARBON DIOXIDE 27 mmol/L (22-30); CHLORIDE 105 mmol/L (98-107); GLUCOSE 126 mg/dL (75-110); POTASSIUM 4.7 mmol/L (3.6-5.0); TOTAL PROTEIN 7.4 g/dL (6.3-8.2)
[2018-11-03 14:02] LABS: APPEARANCE,URINE SLIGHTLY-CLOUDY; BILIRUBIN,URINE NEGATIVE (NEGATIVE); COLOR,URINE YELLOW; GLUCOSE, URINE NEGATIVE (NEGATIVE); KETONES,URINE NEGATIVE (NEGATIVE); LEUKOCYTE ESTERASE,URINE NEGATIVE (NEGATIVE); NITRITE,URINE NEGATIVE (NEGATIVE); PROTEIN,URINE NEGATIVE (NEGATIVE); URINE SPECIFIC GRAVITY 1.017; UROBILINOGEN,URINE NEGATIVE mg/dL (<2.0)
[2018-11-03] MEDS ORDERED: DIPHENHYDRAMINE HCL 50 MG/ML VIAL IV ONE (14:33)
[2018-11-03] MEDS ORDERED: METOCLOPRAMIDE HCL INJ/PF 10 MG/2 ML SDV IV ONE (14:33)
--- NOTE | 2018-11-03 14:43 | ER Document Report ---
ED General - General Chief Complaint: Slurred Speech Stated Complaint: WEAKNESS Time Seen by Provider: 11/03/18 12:22 Mode of Arrival: Wheelchair Information source: Patient, Relative, [facility] Records Notes: 57-year-old female with COPD, type 2 diabetes, fibromyalgia, coronary artery disease, previous CVA with left-sided deficits presents with complaint of slurred speech, generalized weakness, headache, blurred vision that started last night. Patient states that she noticed her slurred speech yesterday evening and when she awoke it appeared to be worsened. Son is at the bedside and states that patient was unable to walk and both himself and his brother had to carry the patient to the car. Patient's headache is described as throbbing, located behind her eyes. She denies any recent illness, fever, chills, nausea, vomiting, chest pain, shortness of breath, abdominal pain. Patient is complaining of low back pain which is chronic for her. TRAVEL OUTSIDE OF THE [place] IN LAST 30 DAYS: No - HPI Onset: Yesterday Onset/Duration: Gradual, Persistent, Worse Quality of pain: Throbbing Severity: Moderate Associated symptoms: Headache, Weakness, Other - Back pain, slurred speech. denies: Chest pain, Chills, Earache, Fever, Nausea, Vomiting, Shortness of breath Exacerbated by: Denies Relieved by: Denies Similar symptoms previously: Yes - Related Data Allergies/Adverse Reactions: cortisone [Cortisone] Allergy (Verified 07/04/18 13:47) hydrocodone bitartrate [From Vicodin] Allergy (Verified 07/04/18 13:47) Past Medical History - General Information source: Patient, Relative, [facility] Records - Social History Smoking Status: Former Smoker Chew tobacco use (# tins/day): No Frequency of alcohol use: None Drug Abuse: None Lives with: Family Family History: DM, Hypertension, Malignancy Patient has suicidal ideation: No Patient has homicidal ideation: No - Past Medical History Cardiac Medical History: Reports: Hx DVT, Hx Hypertension, Hx Pulmonary Embolism Denies: Hx Atrial Fibrillation, Hx Congestive Heart Failure, Hx Coronary Artery Disease, Hx Heart Attack, Hx Hypercholesterolemia, Hx Peripheral Vascular Disease, Hx Heart Murmur Pulmonary Medical History: Reports: Hx Asthma, Hx COPD Denies: Hx Tuberculosis Neurological Medical History: Reports: Hx Cerebrovascular Accident - June 2016. Denies: Hx Seizures Endocrine Medical History: Reports: Hx Diabetes Mellitus Type 2. Denies: Hx Diabetes Mellitus Type 1, Hx Hyperthyroidism, Hx Hypothyroidism Renal/ Medical History: Denies: Hx Peritoneal Dialysis GI Medical History: Reports: Hx Gastroesophageal Reflux Disease, Hx Ulcer. Denies: Hx Cirrhosis, Hx Hepatitis Musculoskeletal Medical History: Reports Hx Arthritis - RA, Reports Hx Fibromyalgia Skin Medical History: Denies Hx Eczema, Denies Hx Psoriasis Psychiatric Medical History: Reports: Hx Anxiety, Hx Depression Infectious Medical History: Denies: Hx Hepatitis Past Surgical History: Reports: Hx Section - X4, Hx Cholecystectomy - 2011, Hx Orthopedic Surgery - bilat knee meniscus repair, neck surgery [facility], Hx Tonsillectomy - 1968. Denies: Hx Appendectomy, Hx Bowel Surgery, Hx Coronary Artery Bypass Graft, Hx Gastric Bypass Surgery, Hx Herniorrhaphy, Hx Hysterectomy, Hx Mastectomy, Hx Pacemaker, Hx Tubal Ligation - Immunizations Hx Diphtheria, Pertussis, Tetanus Vaccination: Yes Review of Systems - Review of Systems Constitutional: Weakness. denies: Fever, Recent illness EENT: Blurred vision. denies: Difficulty swallowing Cardiovascular: denies: Chest pain, Palpitations Respiratory: denies: Cough, Short of breath Gastrointestinal: denies: Abdominal pain, Vomiting, Poor fluid intake, Blood in vomit, Black stools Genitourinary: denies: Dysuria Female Genitourinary: No symptoms reported Musculoskeletal: Back pain Skin: denies: Rash Hematologic/Lymphatic: No symptoms reported Neurological/Psychological: Headaches, Speech impairment -: Yes All other systems reviewed and negative Physical Exam - Vital signs Vitals: Temp Pulse Resp BP Pulse Ox 98.2 F 79 18 189/90 H 97 11/03/18 11:51 11/03/18 11:51 11/03/18 11:51 11/03/18 11:51 11/03/18 11:51 - Notes Notes: PHYSICAL EXAMINATION: GENERAL: Well-appearing, well-nourished and in no acute distress. HEAD: Atraumatic, normocephalic. EYES: Pupils equal round and reactive to light, extraocular movements intact, conjunctiva are normal. ENT: Nares patent, oropharynx clear without exudates. Moist mucous membranes. NECK: Normal range of motion, supple without lymphadenopathy LUNGS: Breath sounds clear to auscultation bilaterally and equal. No wheezes rales or rhonchi. HEART: Regular rate and rhythm without murmurs ABDOMEN: Soft, nontender, nondistended abdomen. No guarding, no rebound. No masses appreciated. Female : deferred Musculoskeletal: Normal range of motion, no pitting or edema. No cyanosis. NEUROLOGICAL: Cranial nerves grossly intact. See NIH stroke scale. NIH 6 for slurred speech, upper extremity ataxia and lower extremity drift. PSYCH: Normal mood, normal affect. SKIN: Warm, Dry, normal turgor, no rashes or lesions noted. Course - Re-evaluation Re-evalutation: Laboratory 11/03/18 11/03/18 11/03/18 12:45 12:45 12:45 WBC 10.2 RBC 5.19 Hgb 12.0 Hct 37.9 MCV 73 L MCH 23.2 L MCHC 31.7 L RDW 19.7 H Plt Count 344 Seg Neutrophils % 75.8 Lymphocytes % 15.8 Monocytes % 4.9 Eosinophils % 2.8 Basophils % 0.7 Absolute Neutrophils 7.7 Absolute Lymphocytes 1.6 Absolute Monocytes 0.5 Absolute Eosinophils 0.3 Absolute Basophils 0.1 PT 12.2 INR 0.91 Sodium 140.8 Potassium 4.7 Chloride 105 Carbon Dioxide 27 Anion Gap 9 BUN 13 Creatinine 0.56 Est GFR ( Amer) > 60 Est GFR (Non-Af Amer) > 60 Glucose 126 H Calcium 9.2 Total Bilirubin 0.4 Direct Bilirubin 0.2 Neonat Total Bilirubin Not Reportable Neonat Direct Bilirubin Not Reportable Neonat Indirect Bili Not Reportable AST 18 ALT 24 Alkaline Phosphatase 121 Troponin I Total Protein 7.4 Albumin 4.1 Urine Color Urine Appearance Urine pH Ur Specific [place] Urine Protein Urine Glucose (UA) Urine Ketones Urine Blood Urine Nitrite Urine Bilirubin Urine Urobilinogen Ur Leukocyte Esterase Urine WBC (Auto) Urine RBC (Auto) U Hyaline Cast (Auto) Urine Bacteria (Auto) Squamous Epi Cells Auto Urine Mucus (Auto) Urine Ascorbic Acid Urine Opiates Screen Urine Methadone Screen Ur Barbiturates Screen Ur Phencyclidine Scrn Ur Amphetamines Screen U Benzodiazepines Scrn Urine Cocaine Screen U Marijuana (THC) Screen 11/03/18 11/03/18 11/03/18 12:45 12:45 12:45 WBC RBC Hgb Hct MCV MCH MCHC RDW Plt Count Seg Neutrophils % Lymphocytes % Monocytes % Eosinophils % Basophils % Absolute Neutrophils Absolute Lymphocytes Absolute Monocytes Absolute Eosinophils Absolute Basophils PT INR Sodium Potassium Chloride Carbon Dioxide Anion Gap BUN Creatinine Est GFR ( Amer) Est GFR (Non-Af Amer) Glucose Calcium Total Bilirubin Direct Bilirubin Neonat Total Bilirubin Neonat Direct Bilirubin Neonat Indirect Bili AST ALT Alkaline Phosphatase Troponin I < 0.012 Total Protein Albumin Urine Color YELLOW Urine Appearance SLIGHTLY-CLOUDY Urine pH 7.0 Ur Specific [place] 1.017 Urine Protein NEGATIVE Urine Glucose (UA) NEGATIVE Urine Ketones NEGATIVE Urine Blood NEGATIVE Urine Nitrite NEGATIVE Urine Bilirubin NEGATIVE Urine Urobilinogen NEGATIVE Ur Leukocyte Esterase NEGATIVE Urine WBC (Auto) 4 Urine RBC (Auto) 2 U Hyaline Cast (Auto) 1 Urine Bacteria (Auto) 3+ Squamous Epi Cells Auto 3 Urine Mucus (Auto) RARE Urine Ascorbic Acid NEGATIVE Urine Opiates Screen NEGATIVE Urine Methadone Screen NEGATIVE Ur Barbiturates Screen NEGATIVE Ur Phencyclidine Scrn NEGATIVE Ur Amphetamines Screen NEGATIVE U Benzodiazepines Scrn NEGATIVE Urine Cocaine Screen NEGATIVE U Marijuana (THC) Screen NEGATIVE Chest X-Ray 11/03/18 12:25 IMPRESSION: NO ACUTE RADIOGRAPHIC FINDING IN THE CHEST. Head CT 11/03/18 12:25 IMPRESSION: NORMAL BRAIN CT WITHOUT CONTRAST. EVIDENCE OF ACUTE STROKE: NO. Head MRI 11/03/18 14:38 IMPRESSION: NORMAL MRI OF THE BRAIN WITHOUT INTRAVENOUS GADOLINIUM CONTRAST. EVIDENCE OF ACUTE STROKE: NO. Temp Pulse Resp BP Pulse Ox 98.2 F 87 17 177/107 H 96 11/03/18 11:51 11/03/18 13:19 11/03/18 13:19 11/03/18 13:19 11/03/18 13:44 11/03/18 14:43 57-year-old female presents with complaint of slurred speech, headache, visual changes that started yesterday. NIH performed upon arrival and 6. CT of the head showed no acute process. EKG shows the patient to be in normal sinus rhythm. MRI pending. Reglan Benadryl administered for headache. 11/03/18 16:34 Patient reevaluated and review of her medications which she states recently changed was performed. Patient states that she recently started taking her gabapentin, cyclobenzaprine, bupropion and lorazepam together at night. She states since that time she has felt "very foggy". I explained that the combination of these medications could be the reason for the patient's drowsiness, dizziness and slurred speech. 11/03/18 16:45 CBC is without leukocytosis or anemia. CMP shows hyperglycemia without evidence of DKA. Urinalysis within normal limits. Urine drug screen negative. 11/03/18 20:05 I did attempt to ambulate the patient who is unable to stand without difficulty. I did speak to Dr. marino who has agreed to admit the patient for observation on the medical floor. - Vital Signs Vital signs: Temp Pulse Resp BP Pulse Ox 97.9 F 86 15 158/92 H 98 11/03/18 18:59 11/03/18 18:53 11/03/18 19:01 11/03/18 19:01 11/03/18 18:53 - Laboratory Result Diagrams: 11/03/18 12:45 11/03/18 12:45 Laboratory results interpreted by me: 11/03/18 11/03/18 12:45 12:45 MCV 73 L MCH 23.2 L MCHC 31.7 L RDW 19.7 H Glucose 126 H - Diagnostic Test Radiology reviewed: Image reviewed, Reports reviewed - EKG Interpretation by Me EKG shows normal: Sinus rhythm Rate: Normal Rhythm: NSR When compared to previous EKG there are: No significant change Discharge - Discharge Clinical Impression: Slurred speech, Intractable dizziness, Unable to ambulate, Fibromyalgia Headache Qualifiers: Headache type: unspecified Headache chronicity pattern: unspecified pattern Intractability: intractable Qualified Code(s): R51 - Headache Hypertension Qualifiers: Hypertension type: essential hypertension Qualified Code(s): I10 - Essential (primary) hypertension COPD (chronic obstructive pulmonary disease) Qualifiers: COPD type: unspecified COPD Qualified Code(s): J44.9 - Chronic obstructive pulm onary disease, unspecified Condition: Good Disposition: ADMITTED OBSERVATION Admitting Provider: Dori (Hospitalist) Unit Admitted: Medical Floor ED NIH Stroke Scale - NIH Stroke Scale *: 1. NIH scale should be completed with appropriate accompanying assessment tools. *: 2. The NIH should reflect what the patient is capable of doing and should not be coached by the clinician. 1a. Level of Consciousness: 0=Alert;keenly responsive -: 1=Drowsy -: 2=Obtunded -: 3=Coma/unresponsive or reflex to noxious stimuli. 1a. Responses: 0 1b. Orientation Questions: a. What month is it? -: b. How old are you? -: 0=Answers both questions correctly. -: 1=Answers one question correctly or patient is intubated or has orotracheal trauma. -: 2=Answers neither question correctly. 1b. Responses: 0 1c. Response to commands: a. Open and close eyes? -: b. Jailer and release hand? -: Credit is given despite weakness. Demonstration of task is permitted. Substitute command if hands cannot be used. -: 0=Performs both tasks correctly -: 1=Performs one task correctly -: 2=Performs neither task correctly 1c. Responses: 0 2. Gaze: Establish eye contact and instruct patient to "Follow my finger" -: 0=Normal -: 1=Partial gaze palsy. Gaze is abnormal in one or both eyes, but where forced deviation or total gaze paresis is not present. -: 2=Forced deviation or total gaze paresis. 2. Responses: 0 3. Visual Tate: Sees fingers in all four quadrants. -: 0=No visual loss. -: 1=Partial hemianopsia. -: 2=Complete hemianopsia. -: 3=Bilateral hemianopsia (including Cortical blindness) 3. Responses: 0 4. Facial Movement: Instruct patient to: -: a. Show me your teeth -: b. Raise your eyebrows -: c. Close your eyes -: d. Smile -: 0=Normal symmetrical movement -: 1=Minor paralysis (flattened nasolabial fold, asymmetry on smiling). -: 2=Partial paralysis (total or near total paralysis of lower face). -: 3=Complete paralysis of upper and lower face 4. Responses: 1 5. Motor functions (left arm): Alternate sides and extend each arm with palms down (90 degrees if sitting or 45 degrees for supine). -: 0=No drift;limb holds for full 10 seconds. -: 1=Drift; limb holds but drifts down before full 10 seconds, but does not hit bed. -: 2=Some effort against gravity; limb cannot get to or maintain position. -: 3=No effort against gravity; limb falls. -: 4=No movement. -: UN=Amputation, joint fusion, explain in comments. 5. Responses (left arm): 0 5. Motor Functions (right arm): Alternate sides and extend each arm with palms down (90 degrees if sitting or 45 degrees for supine). -: 0=No drift;limb holds for full 10 seconds. -: 1=Drift; limb holds but drifts down before full 10 seconds, but does not hit bed. -: 2=Some effort against gravity; limb cannot get to or maintain position. -: 3=No effort against gravity; limb falls. -: 4=No movement. -: UN=Amputation, joint fusion, explain in comments. 5. Responses (right arm): 0 6. Motor Functions (left leg): With patient lying supine, alternate sides and extend each leg (30 degrees always while supine). -: 0=No drift, leg holds position for full 5 seconds -: 1=Drift; leg falls before full 5 seconds but does not hit bed. -: 2=Some effort against gravity, leg falls to bed but some effort against gravity. -: 3=No effort against gravity, leg falls to bed immediately. -: 4=No movement. -: UN=Amputation, joint fusion; explain in comments. 6. Responses (left leg): 1 6. Motor Functions (right leg): With patient lying supine, alternate sides and extend each leg (30 degrees always while supine). -: 0=No drift, leg holds position for full 5 seconds -: 1=Drift; leg falls before full 5 seconds but does not hit bed. -: 2=Some effort against gravity, leg falls to bed but some effort against gravity. -: 3=No effort against gravity, leg falls to bed immediately. -: 4=No movement. -: UN=Amputation, joint fusion; explain in comments. 6. Responses (right leg): 1 7. Limb Ataxia: With eyes open instruct patient to: -: a. "Touch your finger to your nose". -: b. "Touch your heel to your ramsay" -: 0=Absent -: 1=Present in one limb. -: 2=Present in two limbs. -: UN=Amputation or joint fusion; explain in comments. 7. Responses: 2 7. If ataxia present choose as appropriate: Left arm, Right arm 8. Sensory: Test sensation using pinprick or noxious stimuli. Test as many body parts as possible. -: 0=Normal;no sensory loss -: 1=Mile to moderate sensory loss (patient feels pin prick but is less sharp on affected side). -: 2=Severe or total sensory loss. 8. Responses: 0 9. Best Language: Instruct patient to: -: a. "Describe what you see in this picture." -: b. "Name the items in this picture." -: c. "Read these sentences." -: 0=No aphasia, normal -: 1=Mild to moderate aphasia. -: 2=Severe aphasia -: 3=Mute, global aphasia, no usable speech or auditory comprehension. 9. Responses: 0 10. Articulation, Dysarthia: Instruct patient to: -: "Read these words" or "Repeat these words" -: 0=Normal -: 1=Mild to moderate; patient may slur some words but can be understood without difficulty. -: 2=Severe; patients speech so slurred as to be unintelligible in the absence of dysphasia. -: UN=Intubated or other physical barrier, explain in comments. 10. Responses: 1 11. Extinction or inattention: 0=No abnormality -: 1= Visual, tactile, auditory, spatial, or personal inattention or extinction to bilateral simulation in one or the sensory modalities. -: 2=Profound aby-inattention or aby-inattention to more than one modality; does not recognize own hand. 11. Responses: 0 Total Score: 6
--- NOTE | 2018-11-03 16:16 | RADIOLOGY REPORT (SQ) ---
EXAM DESCRIPTION: MRI HEAD WITHOUT COMPLETED DATE/TIME: 11/03/2018 4:06 pm REASON FOR STUDY: slurred speech COMPARISON: CT dated 11/03/2018. MR dated 01/19/2017. TECHNIQUE: Multiplanar imaging includes non-contrasted T1, T2, FLAIR, and diffusion with ADC map seq uences. Images stored on PACS. LIMITATIONS: None. FINDINGS: ANATOMY: No anomalies. Normal vascular flow voids. Pituitary fossa normal. CSF SPACES: Normal in size and contour. No hemorrhage. CEREBRUM: Sulci and gyri normal in size and contour. Normal white matter signal on FLAIR imaging. No evidence of hemorrhage, mass, or extraaxial fluid collection. POSTERIOR FOSSA: No signal alteration. No hemorrhage. No edema, masses or mass effect. Internal denisa tory canals, cerebello-pontine angles, mastoids normal. DIFFUSION IMAGING: Negative for acute or sub-acute infarction. ORBITS: No masses. Globes normal. PARANASAL SINUSES: No fluid levels. Mucosa normal. OTHER: No other significant finding. IMPRESSION: NORMAL MRI OF THE BRAIN WITHOUT INTRAVENOUS GADOLINIUM CONTRAST. EVIDENCE OF ACUTE STROKE: NO. TECHNICAL DOCUMENTATION: JOB ID: [id number] [email or web address] All Rights Reserved Reading location - IP/workstation name: [email or web address]
[2018-11-03 16:23] LABS: URINE AMPHETAMINES SCREEN NEGATIVE; URINE BARBITURATES SCREEN NEGATIVE; URINE BENZODIAZEPINES SCREEN NEGATIVE; URINE COCAINE SCREEN NEGATIVE; URINE MARIJUANA (THC) SCREEN NEGATIVE; URINE METHADONE SCREEN NEGATIVE; URINE PHENCYCLIDINE SCREEN NEGATIVE
[2018-11-03] MEDS ORDERED: MECLIZINE HCL 25 MG TABLET PO ONE (16:33)
[2018-11-03] MEDS ORDERED: KETOROLAC TROMETHAMINE INJ/PF 30 MG/1 ML SDV IV ONE (16:33)
--- NOTE | 2018-11-03 17:45 | PDOC H&P ---
History of Present Illness Admission Date/PCP: 11/03/18 17:21 JUNAID HERNANDEZ PA-C History of Present Illness: BECKA GOMES is a 57 year old female with a history of oxygen dependent COPD and morbid obesity and some psychiatric diagnoses who said that she had previously not been taking all of her medications as directed. She was getting prescriptions from her primary care doctor and from her behavioral health specialist. Apparently somebody advised her to take her medications as d irected, and when she began to do so she began to feel little different. She says she is been a little woozy for the last 3 days. Last night she said she felt a little bit off and had some slurring of her speech. She said this morning she got up in her legs were wobbly. She came to the ER and was worked up and had normal labs and a normal MRI of the brain. She says she still feels a little bit woozy and like her speech is not completely back to normal but she is not having any trouble chewing or swallowing. She is being admitted for observation. Past Medical History Cardiac Medical History: Reports: DVT, Hypertension, Pulmonary Embolism Denies: Atrial Fibrillation, Congestive Heart Failure, Coronary Artery Disease, Myocardial Infarction, Hyperlipidema, Peripheral Vascular Disease, Heart Murmur Pulmonary Medical History: Reports: Asthma, Chronic Obstructive Pulmonary Disease (COPD) Denies: Tuberculosis Neurological Medical History: Denies: Seizures Endocrine Medical History: Reports: Diabetes Mellitus Type 2 Denies: Diabetes Mellitus Type 1, Hyperthyroidism, Hypothyroidism GI Medical History: Reports: Gastroesophageal Reflux Disease Denies: Cirrhosis, Hepatitis Musculoskeltal Medical History: Reports: Arthritis - RA, Fibromyalgia Skin Medical History: Denies: Eczema, Psoriasis Psychiatric Medical History: Reports: Depression Hematology: Denies: Anemia, Bleeding Tendencies Past Surgical History Past Surgical History: Reports: Section - X4, Cholecystectomy - 2011, Orthopedic Surgery - bilat knee meniscus repair, neck surgery [facility], Tonsillectomy - 1968 Denies: Appendectomy, Coronary Artery Bypass Graft, Gastric Bypass Surgery, Herniorrhaphy, Hysterectomy, Mastectomy, Pacemaker, Tubal Ligation Social History Lives with: Family Smoking Status: Former Smoker Frequency of Alcohol Use: None Hx Recreational Drug Use: No Drugs: None Hx Prescription Drug Abuse: No Family History Family History: DM, Hypertension, Malignancy Parental Family History Reviewed: Yes Children Family History Reviewed: Yes Sibling(s) Family History Reviewed.: Yes Medication/Allergy Home Medications: Bupropion HCl [Bupropion Xl] 150 mg PO DAILY 04/17/17 Escitalopram Oxalate [Lexapro] 40 mg PO DAILY 04/17/17 Gabapentin 600 mg PO Q8 04/17/17 Lorazepam [Ativan 0.5 mg Tablet] 1 mg PO DAILYP PRN 04/17/17 Aspirin [Ecotrin 81 mg EC Tablet] 81 mg PO DAILY tabec 06/18/18 Isosorbide Mononitrate [Imdur 60 mg Tablet.er] 30 mg PO DAILY 30 Days #30 tab.er.24h 06/18/18 Metoprolol Succinate [Toprol Xl 25 mg Tab.sr] 25 mg PO DAILY 30 Days #30 tab.sr.24h 06/18/18 Nitroglycerin [Nitrostat 0.4 mg (1/150 Gr) Tabs 25/Bottle] 1 tab SL Q5MP PRN 30 Days #1 bottle 06/18/18 Oxycodone HCl [Oxy-Ir 5 mg Tablet] 5 mg PO Q6HP PRN 3 Days #12 tablet 06/18/18 Hydroxyzine HCl [Atarax 50 mg Tablet] 50 mg PO TID PRN #30 tablet 07/04/18 Permethrin [Elimite] 60 gm TP ONCE #1 tube 07/04/18 Prednisone [Deltasone 10 mg Tablet] 40 mg PO DAILY #20 tablet 07/04/18 Allergies/Adverse Reactions: cortisone [Cortisone] Allergy (Verified 07/04/18 13:47) hydrocodone bitartrate [From Vicodin] Allergy (Verified 07/04/18 13:47) Review of Systems All systems: reviewed and no additional remarkable complaints except as stated - All systems were reviewed and were negative except as noted in HPI Physical Exam Vital Signs: Temp Pulse Resp BP Pulse Ox 98.2 F 87 17 177/107 H 96 11/03/18 11:51 11/03/18 13:19 11/03/18 13:19 11/03/18 13:19 11/03/18 13:44 Intake & Output 11/02/18 11/03/18 11/04/18 06:59 06:59 06:59 Intake Total 90 Balance 90 Weight 124.1 kg General appearance: PRESENT: no acute distress, cooperative, disheveled, morbidly obese Head exam: PRESENT: atraumatic, normocephalic Eye exam: PRESENT: EOMI, PERRLA. ABSENT: conjunctival injection, nystagmus, scleral icterus Ear exam: PRESENT: normal external ear exam Mouth exam: PRESENT: moist, neck supple Throat exam: ABSENT: post pharyngeal erythema Neck exam: PRESENT: full ROM. ABSENT: carotid bruit, JVD, lymphadenopathy, meningismus, tenderness, thyromegaly Respiratory exam: PRESENT: decreased breath sounds, symmetrical, unlabored. ABSENT: accessory muscle use, chest wall tenderness, crackles, prolonged expiratory phas, rhonchi, tachypnea, wheezes Cardiovascular exam: PRESENT: RRR, +S1, +S2 Pulses: PRESENT: normal carotid pulses Vascular exam: PRESENT: normal capillary refill GI/Abdominal exam: PRESENT: normal bowel sounds, soft. ABSENT: distended, guarding, rebound, tenderness Extremities exam: ABSENT: clubbing, pedal edema Musculoskeletal exam: PRESENT: normal inspection. ABSENT: deformity Neurological exam: PRESENT: alert, awake, oriented to person, oriented to place, oriented to situation, CN II-XII grossly intact. ABSENT: motor sensory deficit Psychiatric exam: PRESENT: flat affect Skin exam: PRESENT: dry, warm Results Laboratory Results: 11/03/18 12:45 11/03/18 12:45 11/03/18 11/03/18 11/03/18 12:45 12:45 12:45 WBC 10.2 RBC 5.19 Hgb 12.0 Hct 37.9 MCV 73 L MCH 23.2 L MCHC 31.7 L RDW 19.7 H Plt Count 344 Seg Neutrophils % 75.8 Lymphocytes % 15.8 Monocytes % 4.9 Eosinophils % 2.8 Basophils % 0.7 Absolute Neutrophils 7.7 Absolute Lymphocytes 1.6 Absolute Monocytes 0.5 Absolute Eosinophils 0.3 Absolute Basophils 0.1 Sodium 140.8 Potassium 4.7 Chloride 105 Carbon Dioxide 27 Anion Gap 9 BUN 13 Creatinine 0.56 Est GFR ( Amer) > 60 Est GFR (Non-Af Amer) > 60 Glucose 126 H Calcium 9.2 Total Bilirubin 0.4 AST 18 ALT 24 Alkaline Phosphatase 121 Total Protein 7.4 Albumin 4.1 Urine Color YELLOW Urine Appearance SLIGHTLY-CLOUDY Urine pH 7.0 Ur Specific [place] 1.017 Urine Protein NEGATIVE Urine Glucose (UA) NEGATIVE Urine Ketones NEGATIVE Urine Blood NEGATIVE Urine Nitrite NEGATIVE Ur Leukocyte Esterase NEGATIVE Urine WBC (Auto) 4 Urine RBC (Auto) 2 11/03/18 12:45 Troponin I < 0.012 Impressions: Chest X-Ray 11/03/18 12:25 IMPRESSION: NO ACUTE RADIOGRAPHIC FINDING IN THE CHEST. Head CT 11/03/18 12:25 IMPRESSION: NORMAL BRAIN CT WITHOUT CONTRAST. EVIDENCE OF ACUTE STROKE: NO. Head MRI 11/03/18 14:38 IMPRESSION: NORMAL MRI OF THE BRAIN WITHOUT INTRAVENOUS GADOLINIUM CONTRAST. EVIDENCE OF ACUTE STROKE: NO. Assessment and Plan - Diagnosis (1) Polypharmacy Is this a current diagnosis for this admission?: Yes Plan: We are going to hold all of her sedating medications and let them washout and then see how she responds. We will get a physical therapy evaluation for tomorrow. (2) Chronic hypoxemic respiratory failure Is this a current diagnosis for this admission?: Yes Plan: Continue her home O2 (3) Hypertension Qualifiers: Hypertension type: essential hypertension Qualified Code(s): I10 - Essential (primary) hypertension Is this a current diagnosis for this admission?: Yes Plan: She is on lisinopril propranolol at home we will continue those (4) Fibromyalgia Is this a current diagnosis for this admission?: Yes Plan: Continue her antidepressants (5) Anxiety and depression Is this a current diagnosis for this admission?: Yes Plan: Continuing her antidepressants but holding her sedating medications - Time Time Spent with patient: 35 or more minutes
[2018-11-03 18:19] LABS: VENOUS BLOOD BASE EXCESS 2.3 mmol/L; VENOUS BLOOD HCO3 29.2 mmol/L (20-32); VENOUS BLOOD PCO2 55.5 mmHg (35-63); VENOUS BLOOD PH 7.34 (7.30-7.42)
[2018-11-03] MEDS ORDERED: LORAZEPAM 0.5 MG TABLET PO PRN (20:16)
--- NOTE | 2018-11-03 20:36 | EKG REPORT ---
SEVERITY:- BORDERLINE ECG - SINUS RHYTHM LVH BY VOLTAGE : Confirmed by: Sarai Spence 03-Nov-2018 20:35:37
[2018-11-03] MEDS ORDERED: TRAZODONE HCL 50 MG TABLET PO SCH (22:00)
[2018-11-03] MEDS: CELECOXIB 200 MG CAPSULE PO SCH (22:06)
[2018-11-03] MEDS: PROPRANOLOL HCL 20 MG TABLET PO SCH (22:06)
[2018-11-03] MEDS: GABAPENTIN 300 MG CAPSULE PO SCH (22:06)
[2018-11-03] MEDS: LISINOPRIL 10 MG TABLET PO SCH (22:06)
[2018-11-03] MEDS: BUPROPION HCL 100 MG TABLET PO SCH (22:07)
[2018-11-03] MEDS: MORPHINE SULFATE 10 MG/ML INJ IV PRN (22:07)
[2018-11-03] MEDS: HEPARIN SOD (PORCINE) 5,000 UNIT/ML 1 ML VIAL SUBCUT SCH (22:07)
[2018-11-04] MEDS: MORPHINE SULFATE 10 MG/ML INJ IV PRN ×2 (01:21→06:03)
[2018-11-04] MEDS: HEPARIN SOD (PORCINE) 5,000 UNIT/ML 1 ML VIAL SUBCUT SCH ×3 (05:19→21:14)
[2018-11-04] MEDS: PROPRANOLOL HCL 20 MG TABLET PO SCH ×3 (05:45→21:14)
[2018-11-04] MEDS: GABAPENTIN 300 MG CAPSULE PO SCH (06:03)
[2018-11-04] MEDS: BUPROPION HCL 100 MG TABLET PO SCH ×3 (06:03→21:14)
[2018-11-04] MEDS: LISINOPRIL 10 MG TABLET PO SCH ×2 (09:10→21:14)
[2018-11-04] MEDS: ESCITALOPRAM OXALATE 10 MG TABLET PO SCH (09:10)
[2018-11-04] MEDS: ASPIRIN 81 MG TABLET, ENT COATED PO SCH (09:11)
[2018-11-04] MEDS: CELECOXIB 200 MG CAPSULE PO SCH ×2 (09:11→21:14)
[2018-11-04] MEDS ORDERED: (PENDING PHARMACY ID) (Bupropion Hcl [Bupropion Xl] 300 MG) PO SCH (10:00)
[2018-11-04] MEDS ORDERED: (PENDING PHARMACY ID) (Escitalopram Oxalate [Lexapro] 40 MG) PO SCH (10:00)
[2018-11-04] MEDS ORDERED: IBUPROFEN 800 MG TABLET PO PRN (11:21)
[2018-11-04 12:05] LABS: ARTERIAL BLOOD BASE EXCESS 0.2 mmol/L; ARTERIAL BLOOD H2CO3 2.11 mmol/L (1.05-1.35); ARTERIAL BLOOD HCO3 29.1 mmol/L (20-24); ARTERIAL BLOOD O2 SATURATION 96.5 % (94-98); ARTERIAL BLOOD PH 7.24 (7.35-7.45); ARTERIAL BLOOD PO2 102.4 mmHg (80-100); ARTERIAL BLOOD TOTAL CO2 31.3 mmol/L (21-25)
[2018-11-04 12:06] LABS: ARTERIAL BLOOD FIO2 2L
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
[2018-11-05] MEDS: HEPARIN SOD (PORCINE) 5,000 UNIT/ML 1 ML VIAL SUBCUT SCH (05:28)
[2018-11-05] MEDS: BUPROPION HCL 100 MG TABLET PO SCH (05:28)
[2018-11-05] MEDS: PROPRANOLOL HCL 20 MG TABLET PO SCH (05:28)
[2018-11-05] MEDS ORDERED: KETOROLAC TROMETHAMINE INJ/PF 30 MG/1 ML SDV IV ONE (10:00)
[2018-11-05] MEDS ORDERED: DIPHENHYDRAMINE HCL 50 MG/ML VIAL IV ONE (10:00)
[2018-11-05] MEDS: ESCITALOPRAM OXALATE 10 MG TABLET PO SCH (10:02)
[2018-11-05] MEDS: LISINOPRIL 10 MG TABLET PO SCH (10:02)
[2018-11-05] MEDS: ASPIRIN 81 MG TABLET, ENT COATED PO SCH (10:02)
[2018-11-05] MEDS: CELECOXIB 200 MG CAPSULE PO SCH (10:02)
[2018-11-05 12:17] VITALS: BP 137/68
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
== END 2018-11-05 13:35 | disposition home health service (06) ==
LOC: ER 11:42 → EH 17:21 → 4S 21:00
PROVIDERS: ADMIT Family Medicine; ATTEND Family Medicine
DX: J96.02 Acute respiratory failure with hypercapnia (principal); J96.01 Acute respiratory failure with hypoxia; G93.41 Metabolic encephalopathy; J44.9 Chronic obstructive pulmonary disease, unspecified; E11.65 Type 2 diabetes mellitus with hyperglycemia; M79.7 Fibromyalgia; I25.10 Atherosclerotic heart disease of native coronary artery without angina pectoris; G89.29 Other chronic pain; M54.5 Low back pain; E66.2 Morbid (severe) obesity with alveolar hypoventilation; I10 Essential (primary) hypertension; F41.9 Anxiety disorder, unspecified; F32.9 Major depressive disorder, single episode, unspecified; M06.9 Rheumatoid arthritis, unspecified; I69.398 Other sequelae of cerebral infarction; R47.1 Dysarthria and anarthria; R51 Headache; Z79.899 Other long term (current) drug therapy; Z79.82 Long term (current) use of aspirin; Z99.81 Dependence on supplemental oxygen; Z86.718 Personal history of other venous thrombosis and embolism; Z86.711 Personal history of pulmonary embolism; Z90.49 Acquired absence of other specified parts of digestive tract; Z87.891 Personal history of nicotine dependence; Z82.49 Family history of ischemic heart disease and other diseases of the circulatory system; R29.706 NIHSS score 6
CPT/HCPCS: 93005; 99285; 96374; 96375; 36415 ×2; 82140; 82803 ×2; 85025; 85610; 80053; 81001; 84484; 80307; 70551; 71045; 70450; 93010; 36600; 94660 ×2; 97116; 97163; J1644 ×2; A9270 ×21; J1200 ×2; J1885 ×2; J2765; J2270 ×2; J3490 ×3; G0378

== ENCOUNTER 2019-02-02 16:57 | Emergency (ER) | payer MEDICARE, MEDICAID ==
[2019-02-02 17:34] VITALS: BP 131/68
[2019-02-02] MEDS ORDERED: ASPIRIN 81 MG TABLET, CHEWABLE PO ONE (17:52)
--- NOTE | 2019-02-02 17:52 | ER Document Report ---
ED Medical Screen (RME) - General Chief Complaint: Chest Pain Stated Complaint: COUGH,BACK PAIN Time Seen by Provider: 02/02/19 17:50 Primary Care Provider: JUNAID HERNANDEZ PA-C [Primary Care Provider] - Follow up as needed Mode of Arrival: Ambulatory Information source: Patient Notes: 58-year-old female presented to ED for complaint of cough back pain and chest pain. She is on oxygen at home when she gets short of breath. She has been short of breath for the last couple days. Patient does have COPD. Patient is alert oriented respirations are regular at this time. Does have pain was a deep breath no wheezes noted at this time but she did have a breathing treatment at home. I have greeted and performed a rapid initial assessment of this patient. A com prehensive ED assessment and evaluation of the patient, analysis of test results and completion of medical decision making process will be conducted by an additional ED providers. TRAVEL OUTSIDE OF THE [place] IN LAST 30 DAYS: No - Related Data Allergies/Adverse Reactions: cortisone [Cortisone] Allergy (Verified 02/02/19 17:46) hydrocodone bitartrate [From Vicodin] Allergy (Verified 02/02/19 17:46) Past Medical History - Past Medical History Cardiac Medical History: Reports: Hx DVT, Hx Hypertension, Hx Pulmonary Embolism Denies: Hx Atrial Fibrillation, Hx Congestive Heart Failure, Hx Coronary Artery Disease, Hx Heart Attack, Hx Hypercholesterolemia, Hx Peripheral Vascular Disease, Hx Heart Murmur Pulmonary Medical History: Reports: Hx Asthma, Hx COPD Denies: Hx Tuberculosis Neurological Medical History: Reports: Hx Cerebrovascular Accident - June 2016. Denies: Hx Seizures Endocrine Medical History: Reports: Hx Diabetes Mellitus Type 2. Denies: Hx Diabetes Mellitus Type 1, Hx Hyperthyroidism, Hx Hypothyroidism Renal/ Medical History: Denies: Hx Peritoneal Dialysis GI Medical History: Reports: Hx Gastroesophageal Reflux Disease, Hx Ulcer. Denies: Hx Cirrhosis, Hx Hepatitis Musculoskeltal Medical History: Reports Hx Arthritis - RA, Reports Hx Fibromyalgia Skin Medical History: Denies Hx Eczema, Denies Hx Psoriasis Psychiatric Medical History: Reports: Hx Anxiety, Hx Depression Infectious Medical History: Denies: Hx Hepatitis Past Surgical History: Reports: Hx Section - X4, Hx Cholecystectomy - 2011, Hx Orthopedic Surgery - bilat knee meniscus repair, neck surgery [facility], Hx T onsillectomy - 1968. Denies: Hx Appendectomy, Hx Bowel Surgery, Hx Coronary Artery Bypass Graft, Hx Gastric Bypass Surgery, Hx Herniorrhaphy, Hx Hysterectomy, Hx Mastectomy, Hx Pacemaker, Hx Tubal Ligation - Immunizations Hx Diphtheria, Pertussis, Tetanus Vaccination: Yes Physical Exam - Vital signs Vitals: Temp Pulse Resp BP Pulse Ox 97.7 F 116 H 28 H 131/68 H 95 02/02/19 17:33 02/02/19 17:33 02/02/19 17:33 02/02/19 17:33 02/02/19 17:33 Course - Vital Signs Vital signs: Temp Pulse Resp BP Pulse Ox 97.7 F 116 H 28 H 131/68 H 95 02/02/19 17:33 02/02/19 17:33 02/02/19 17:33 02/02/19 17:33 02/02/19 17:33 Doctor's Discharge - Discharge Referrals: JUNAID HERNANDEZ PA-C [Primary Care Provider] - Follow up as needed
--- NOTE | 2019-02-02 18:32 | RADIOLOGY REPORT (SQ) ---
EXAM DESCRIPTION: CHEST 2 VIEWS COMPLETED DATE/TIME: 02/02/2019 6:19 pm REASON FOR STUDY: Chest pain history of COPD COMPARISON: 11/03/2018 EXAM PARAMETERS: NUMBER OF VIEWS: two views TECHNIQUE: Digital Frontal and Lateral radiographic views of the chest acquired. RADIATION DOSE: NA LIMITATIONS: none FINDINGS: LUNGS AND PLEURA: No opacities, masses or pneumothorax. No pleural effusion. MEDIASTINUM AND HILAR STRUCTURES: No masses or contour abnormalities. HEART AND VASCULAR STRUCTURES: Heart normal size. No evidence for failure. BONES: No acute findings. HARDWARE: None in the chest. OTHER: No other significant finding. IMPRESSION: NO ACUTE RADIOGRAPHIC FINDING IN THE CHEST. TECHNICAL DOCUMENTATION: JOB ID: [id number] [employer]- All Rights Reserved Reading location - IP/workstation name: [email or web address]
[2019-02-02 19:45] LABS: ABSOLUTE BASOPHILS # (AUTO) 0.1 10^3/uL (0.0-0.2); ABSOLUTE EOSINOPHILS # (AUTO) 0.4 10^3/uL (0.0-0.6); ABSOLUTE LYMPHOCYTES (AUTO) 1.9 10^3/uL (0.5-4.7); ABSOLUTE MONOCYTES (AUTO) 0.7 10^3/uL (0.1-1.4); ABSOLUTE NEUT (AUTO) 7.9 10^3/uL (1.7-8.2); BASOPHILS % (AUTO) 1.3 % (0-2); EOSINOPHILS % (AUTO) 3.3 % (0-6); HEMOGLOBIN 11.9 g/dL (12.0-15.5); LYMPHOCYTES % (AUTO) 17.6 % (13-45); MEAN CORPUSCULAR HEMOGLOBIN 22.6 pg (27.0-33.4); MEAN CORPUSCULAR HGB CONC 30.6 g/dL (32.0-36.0); MEAN CORPUSCULAR VOLUME 74 fl (80-97); MONOCYTES % (AUTO) 5.9 % (3-13); PLATELET COUNT 287 10^3/uL (150-450); RED BLOOD COUNT 5.26 10^6/uL (3.72-5.28); RED CELL DISTRIBUTION WIDTH 20.6 % (11.5-14.0); SEGMENTED NEUTROPHILS % (AUTO) 71.9 % (42-78); TOTAL CELLS COUNTED % (AUTO) 100 %
[2019-02-02 19:50] LABS: INTERNATIONAL RATION (INR) 0.95; PROTHROMBIN TIME 12.7 SEC (11.4-15.4)
[2019-02-02 19:51] LABS: PARTIAL THROMBOPLASTIN TIME 27.2 SEC (23.5-35.8)
[2019-02-02 19:58] LABS: ALBUMIN 4.3 g/dL (3.5-5.0); ALKALINE PHOSPHATASE 127 U/L (38-126); ANION GAP 11 (5-19); ASPARTATE AMINO TRANSFERASE 20 U/L (14-36); BILIRUBIN,DIRECT 0.2 mg/dL (0.0-0.4); BILIRUBIN,TOTAL 0.5 mg/dL (0.2-1.3); BLOOD UREA NITROGEN 13 mg/dL (7-20); CALCIUM 9.8 mg/dL (8.4-10.2); CARBON DIOXIDE 26 mmol/L (22-30); CHLORIDE 105 mmol/L (98-107); CREATINE KINASE 32 U/L (30-135); GLUCOSE 108 mg/dL (75-110); POTASSIUM 4.2 mmol/L (3.6-5.0); TOTAL PROTEIN 7.7 g/dL (6.3-8.2)
[2019-02-02 20:10] LABS: NT PRO BNP 35 pg/mL (5-900)
[2019-02-02 20:11] LABS: CREATINE KINASE MB < 0.22 ng/mL (<4.55); TROPONIN I < 0.012 ng/mL
--- NOTE | 2019-02-02 20:18 | EKG REPORT ---
SEVERITY:- OTHERWISE NORMAL ECG - SINUS TACHYCARDIA : Confirmed by: Teri Hanson MD 02-Feb-2019 20:17:36
== END 2019-02-02 20:45 | disposition left against medical advice (07) ==
LOC: ER 16:57
DX: R07.9 Chest pain, unspecified (principal); R05 Cough; M54.9 Dorsalgia, unspecified; I10 Essential (primary) hypertension; E11.9 Type 2 diabetes mellitus without complications; Z86.711 Personal history of pulmonary embolism; Z86.73 Personal history of transient ischemic attack (TIA), and cerebral infarction without residual deficits; Z88.6 Allergy status to analgesic agent; Z86.718 Personal history of other venous thrombosis and embolism; Z90.49 Acquired absence of other specified parts of digestive tract
CPT/HCPCS: 93005; 36415; 82553; 82550; 83735; 84443; 85025; 85610; 85730; 80053; 84484; 83880; 71046; 93010; A9270

== ENCOUNTER → 2019-04-21 | Outpatient (CLI) | payer MEDICARE, MEDICAID ==
--- NOTE | 2019-04-21 13:46 | WOMENS IMAGING REPORT ---
EXAM DESCRIPTION: 3D SCREENING MAMMO BILAT COMPLETED DATE/TIME: 04/21/2019 1:34 pm REASON FOR STUDY: Z12.31 ENCOUNTER FOR SCREENING MAMMOGRAM FOR MALIGNANT NEOPLASM OF BREAST Z12.31 ENCNTR SCREEN MAMMOGRAM FOR MALIGNANT NEOPLASM OF MELANY Z13.29 ENCOUNTER FOR SCREENING FOR OTH SUSPECT ED ENDOCRINE D COMPARISON: 2013 EXAM PARAMETERS: Views: Standard craniocaudal and mediolateral oblique views of each breast recorded using digital acquisition and breast tomosynthesis. Read with the assistance of CAD. .[facility] - [employer] Version 9.2 LIMITATIONS: None. FINDINGS: No suspicious masses, suspicious calcifications or architectural distortion. No areas of c oncern. IMPRESSION: NEGATIVE MAMMOGRAM. BIRADS 1. BREAST DENSITY: b. There are scattered areas of fibroglandular density. BIRAD: ASSESSMENT: 1 NEGATIVE RECOMMENDATION: ROUTINE SCREENING COMMENT: The patient has been notified of the results by letter per MQSA requirements. Additional no tification policies are in place for contacting patient with suspicious or incomplete findings. Quality ID #[id number]: The [employer] recommends an annual screening mammogram for women aged 40 years or over. This facility utilizes a reminder system to ensure that all patients receive reminder letters, and/or direct phone calls for appointments. This includes reminders for routine scr eening mammograms, diagnostic mammograms, or other Breast Imaging Interventions when appropriate. Th is patient will be placed in the appropriate reminder system. TECHNICAL DOCUMENTATION: FINDING NUMBER: (1) ASSESSMENT: (1) JOB ID: [id number] 1923 [employer]- All Rights Reserved Reading location - IP/workstation name: [email or web address]
--- NOTE | 2019-04-21 19:40 | WOMENS IMAGING REPORT ---
EXAM DESCRIPTION: U/S THYROID/ST TIS HEAD NECK COMPLETED DATE/TIME: 04/21/2019 12:45 pm REASON FOR STUDY: Z13.29 ENCOUNTER FOR SCREENING FOR OTHER SUSPECTED ENDOCRINE DISORDER Z12.31 ENCN TR SCREEN MAMMOGRAM FOR MALIGNANT NEOPLASM OF MELANY Z13.29 ENCOUNTER FOR SCREENING FOR OTH SUSPECTED E NDOCRINE D COMPARISON: None. TECHNIQUE: Dynamic and static [place]-scale images acquired of the thyroid gland. Selected additional c olor/power Doppler images recorded. All images stored to PACS. LIMITATIONS: None. FINDINGS: RIGHT LOBE: The right lobe measures 4.2 x 1.6 by 1.5 cm. Normal background echotexture. There is a 1.4 x 1.3 x 0.8 cm circumscribed markedly hypoechoic nodule in the right midpole. No othe r solid or cystic nodules. LEFT LOBE: The left thyroid lobe measures 3.7 x 1.5 x 1.4 cm. Normal background echotexture. No sean id or cystic nodule. ISTHMUS: The isthmus is thickened measuring 8 mm. Homogeneous echotexture. No cystic or solid saima s. OTHER: No other significant finding. IMPRESSION: 1. Hypoechoic nodule in the right mid thyroid lobe is suspicious. Fine-needle aspiration recommended . TECHNICAL DOCUMENTATION: JOB ID: [id number] [employer]- All Rights Reserved Reading location - IP/workstation name: [email or web address]
== END ==
LOC: WI 13:00
PROVIDERS: ATTEND Physician Assistant
DX: Z12.31 Encounter for screening mammogram for malignant neoplasm of breast (principal); E04.1 Nontoxic single thyroid nodule
CPT/HCPCS: 76536; 77063; 77067

== ENCOUNTER 2019-05-20 19:03 | Emergency (ER) | payer MEDICARE, MEDICAID ==
[2019-05-20] MEDS ORDERED: OXYCODONE-ACETAMINOPHEN 5-325 MG TABLET PO ONE (19:53)
--- NOTE | 2019-05-20 19:55 | ER Document Report ---
HPI - HPI Patient complains to provider of: Fall Time Seen by Provider: 05/20/19 19:46 Onset: This morning Onset/Duration: Sudden Quality of pain: Achy Pain Level: 4 Context: Patient states she fell through a weakened area in her floor. Patient states that her foot started to go through a register event. Patient states that she ended up falling onto her side and then back. Patient complains of low back pain, right hip and right thigh pain. Patient denies any head injury or loss of consciousness. Patient does have a history of chronic low back pain for which she takes Percocet. Patient last took a dose of pain medicine 7 hours prior to arrival. Associated Symptoms: Other - Back pain, hip pain, right thigh pain Exacerbated by: Standing, Movement, Walking Relieved by: Denies Similar symptoms previously: Yes Recently seen / treated by doctor: No - ROS ROS below otherwise negative: Yes Systems Reviewed and Negative: Yes All other systems reviewed and negative - CONSTITUTIONAL Constitutional: DENIES: Fever - NEURO Neurology: DENIES: Headache, Weakness - CARDIOVASCULAR Cardiovascular: DENIES: Chest pain - RESPIRATORY Respiratory: DENIES: Trouble Breathing - GASTROINTESTINAL Gastrointestinal: DENIES: Nausea, Patient vomiting - MUSCULOSKELETAL Musculoskeletal: REPORTS: Extremity pain - Right hip, right thigh, Back Pain - DERM Skin Color: Normal Skin Problems: None Past Medical History - General Information source: Patient - Social History Smoking Status: Never Smoker Chew tobacco use (# tins/day): No Frequency of alcohol use: None Drug Abuse: None Occupation: none Lives with: Family Family History: DM, Hypertension, Malignancy Patient has suicidal ideation: No Patient has homicidal ideation: No - Past Medical History Cardiac Medical History: Reports: Hx DVT, Hx Hypertension, Hx Pulmonary Embolism Pulmonary Medical History: Reports: Hx Asthma, Hx COPD Neurological Medical History: Reports: Hx Cerebrovascular Accident - June 2016. Denies: Hx Seizures Endocrine Medical History: Reports: Hx Diabetes Mellitus Type 2 Renal/ Medical History: Denies: Hx Peritoneal Dialysis GI Medical History: Reports: Hx Gastroesophageal Reflux Disease, Hx Ulcer Musculoskeletal Medical History: Reports Hx Arthritis - RA, Reports Hx Fibromyalgia Skin Medical History: Denies Hx Eczema, Denies Hx Psoriasis Psychiatric Medical History: Reports: Hx Anxiety, Hx Depression Past Surgical History: Reports: Hx Section - X4, Hx Cholecystectomy - 2011, Hx Orthopedic Surgery - bilat knee meniscus repair, neck surgery [facility], Hx Tonsillectomy - 1968 - Immunizations Hx Diphtheria, Pertussis, Tetanus Vaccination: Yes Vertical Provider Document - CONSTITUTIONAL Agree With Documented VS: Yes Exam Limitations: No Limitations General Appearance: WD/WN, No Apparent Distress - INFECTION CONTROL TRAVEL OUTSIDE OF THE [place] IN LAST 30 DAYS: No - HEENT HEENT: Atraumatic, Normocephalic - NECK Neck: Normal Inspection, Supple - RESPIRATORY Respiratory: Breath Sounds Normal, No Respiratory Distress - CARDIOVASCULAR Cardiovascular: Regular Rate, Regular Rhythm, No Murmur - MUSCULOSKELETAL/EXTREMETIES Musculoskeletal/Extremeties: Tender - Lower lumbar midline tenderness, no step- off or deformity Notes: Right hip tenderness over lateral aspect of greater trochanter, patient with tenderness with weightbearing. Patient also with right femur tenderness, no obvious deformity, no tenderness to right knee or lower leg. - NEURO Level of Consciousness: Awake, Alert, Appropriate Motor/Sensory: No Motor Deficit Notes: No saddle anesthesia - DERM Integumentary: Warm, Dry Course - Re-evaluation Re-evalutation: 05/20/19 21:08 Patient without any acute fracture noted on x-ray. Patient will be provided with prescription for walker. Patient encouraged to see her primary doctor on Wednesday for recheck. Patient is already on chronic pain medication. Patient advised to take her usual medication as prescribed. The patient presents with low back pain without signs of spinal cord compression, cauda equina syndrome, infection, aneurysm, or other serious etiology. The patient is neurologically intact. Given the extremely risk of these diagnoses further testing and evaluation for these possibilities does not appear to be indicated at this time. Patient has been instructed to return if the symptoms worsen or change in any way. - Vital Signs Vital signs: Temp Pulse Resp BP Pulse Ox 98.2 F 103 H 20 149/105 H 95 05/20/19 19:25 05/20/19 19:25 05/20/19 19:25 05/20/19 19:25 05/20/19 19:25 - Diagnostic Test Radiology reviewed: Reports reviewed Discharge - Discharge Clinical Impression: Fall Qualifiers: Encounter type: initial encounter Qualified Code(s): W19.XXXA - Unspecified fall, initial encounter Hip sprain Qualifiers: Encounter type: initial encounter Laterality: right Qualified Code(s): S73.101A - Unspecified sprain of right hip, initial encounter Low back pain Qualifiers: Chronicity: chronic Back pain laterality: midline Sciatica presence: with sciatica Sciatica laterality: sciatica of right side Qualified Code(s): M54.41 - Lumbago with sciatica, right side Thigh pain Qualifiers: Laterality: right Qualified Code(s): M79.651 - Pain in right thigh Condition: Stable Disposition: HOME, SELF-CARE Instructions: Ice Packs ([facility]), Low Back Pain ([facility]), Muscle Strain ([facility]), Sprain ([facility]) Additional Instructions: Return immediately for any new or worsening symptoms Followup with your primary care provider, call tomorrow to make a followup appointment Weightbearing as tolerated Follow-up with orthopedics for any persistent pain or problems Prescriptions: Walker [Ultra-Light Rollator] 1 each MC DAILY PRN #1 each PRN Reason: Referrals: JUNAID HERNANDEZ PA-C [Primary Care Provider] - Follow up as needed
--- NOTE | 2019-05-20 20:57 | RADIOLOGY REPORT (SQ) ---
EXAM DESCRIPTION: [facility]: XR LUMBAR SPINE ANTEROPOSTERIOR, LATERAL, AND OBLIQUES Views: 5 CLINICAL HISTORY: 58 years Female; fall, back, hip/thigh pain; COMPARISON: None. FINDINGS: Alignment is anatomic. There is mild facet arthropathy in the lower lumbar spine and mild degenerative endplate changes at L4-L5 and L5-S1. Vertebral heights are preserved. Disc spaces are preserved. No acute fracture. Psoas shadows are sharp. Right upper quadrant surgical clips are noted. IMPRESSION: 1. No acute fracture or subluxation 2. Mild lower lumbar degenerative changes.
--- NOTE | 2019-05-20 21:00 | RADIOLOGY REPORT (SQ) ---
EXAM DESCRIPTION: Single view of the pelvis CLINICAL HISTORY: 58 years Female, fall, back, hip/thigh pain COMPARISON: None. FINDINGS: The hips are located bilaterally. Pelvic ring is intact. Sacrum and SI joints are unremarkable. No definitive hip fracture is seen. Bone mineralization is diminished. IMPRESSION: No definite fracture
--- NOTE | 2019-05-20 21:01 | RADIOLOGY REPORT (SQ) ---
EXAM DESCRIPTION: Right femur [facility]: XR FEMUR 2 VIEWS Views: 2 CLINICAL HISTORY: 58 years Female; fall, back, hip/thigh pain; COMPARISON: None. FINDINGS: Negative for acute fracture, dislocation, or radiopaque foreign body. IMPRESSION: 1. No acute findings.
[2019-05-20 21:36] VITALS: BP 171/116
== END 2019-05-20 21:32 | disposition home or self-care (01) ==
LOC: ER 19:03
DX: S73.101A Unspecified sprain of right hip, initial encounter (principal); M54.41 Lumbago with sciatica, right side; M25.551 Pain in right hip; M79.651 Pain in right thigh; G89.29 Other chronic pain; W13.3XXA Fall through floor, initial encounter; I10 Essential (primary) hypertension; E11.9 Type 2 diabetes mellitus without complications; J44.9 Chronic obstructive pulmonary disease, unspecified
CPT/HCPCS: 73552; 72110; 72170; A9270; 99283

== ENCOUNTER → 2019-05-26 | Outpatient (CLI) | payer MEDICARE, MEDICAID ==
[2019-05-26 17:47] LABS: FREE T4 (FREE THYROXINE) 0.99 ng/dL (0.78-2.19)
[2019-05-26 18:01] LABS: THYROID STIMULATING HORMONE 0.91 uIU/mL (0.47-4.68)
== END ==
LOC: OD 15:13
PROVIDERS: ATTEND Otolaryngology
DX: E04.1 Nontoxic single thyroid nodule (principal)
CPT/HCPCS: 36415; 84439; 84443

== ENCOUNTER → 2019-07-25 | Outpatient (CLI) | payer MEDICARE, MEDICAID ==
--- NOTE | 2019-07-25 13:51 | RADIOLOGY REPORT (SQ) ---
EXAM DESCRIPTION: CHEST PA/LATERAL IMAGES COMPLETED DATE/TIME: 07/25/2019 1:39 pm REASON FOR STUDY: COPD EXACERBATION NOT IMPROVING WITH STEROID ANTIBIOTIC COMPARISON: 02/02/2019 EXAM PARAMETERS: NUMBER OF VIEWS: two views TECHNIQUE: Digital Frontal and Lateral radiographic views of the chest acquired. RADIATION DOSE: NA LIMITATIONS: none FINDINGS: LUNGS AND PLEURA: No opacities, masses or pneumothorax. No pleural effusion. MEDIASTINUM AND HILAR STRUCTURES: No masses or contour abnormalities. HEART AND VASCULAR STRUCTURES: Heart normal size. No evidence for failure. BONES: No acute findings. HARDWARE: None in the chest. OTHER: No other significant finding. IMPRESSION: NO SIGNIFICANT RADIOGRAPHIC FINDING IN THE CHEST. TECHNICAL DOCUMENTATION: JOB ID: [id number] 2010 [employer]- All Rights Reserved Reading location - IP/workstation name: [email or web address]
== END ==
LOC: OD 12:39
PROVIDERS: ATTEND Family Medicine
DX: J44.1 Chronic obstructive pulmonary disease with (acute) exacerbation (principal); Z79.2 Long term (current) use of antibiotics; Z79.52 Long term (current) use of systemic steroids
CPT/HCPCS: 71046

== ENCOUNTER → 2019-10-31 | Outpatient (CLI) | payer MEDICARE, MEDICAID | LOC: SP 11:05 | PROVIDERS: ATTEND Internal Medicine | DX: Z01.810 Encounter for preprocedural cardiovascular examination (principal); I25.9 Chronic ischemic heart disease, unspecified; I10 Essential (primary) hypertension | CPT/HCPCS: 93306 ==

== ENCOUNTER → 2019-11-06 | Outpatient (CLI) | payer MEDICARE, MEDICAID | LOC: RAD 08:09 | PROVIDERS: ATTEND Internal Medicine | DX: Z01.810 Encounter for preprocedural cardiovascular examination (principal); I10 Essential (primary) hypertension; I25.9 Chronic ischemic heart disease, unspecified | CPT/HCPCS: 78451; A9500; Q9969 ==